=== PATIENT | male | born 1955 | race Caucasian/White ===

== ENCOUNTER 2020-02-26 12:08 | Emergency (ER) | payer OTHER, SELFPAY ==
[2020-02-26 12:14] VITALS: BP 127/78; PULSE 86; TEMP 36.7; O2SAT 95
--- NOTE | 2020-02-26 12:30 | DI.RAD_ITS ---
EXAM: XR TOE RT GREAT CLINICAL HISTORY: plantar wound, pain TECHNIQUE: COMPARISON: No exams were available for comparison FINDINGS: Three views were obtained. The patient reportedly has history of 2 weeks of pain following a plantar wound with clinical suspicion of osteomyelitis. There is a tiny erosion of the lateral aspect of th e head of the proximal phalanx of the great toe with a sclerotic border, probably old. There is mini mal sclerosis of the plantar cortex of the distal phalanx of the great toe without gross erosion or o ther evidence of osteomyelitis. Otherwise the bones of the visualized toes appear intact. IMPRESSION: No convincing evidence of osteomyelitis. If there is a high clinical suspicion of osteomyelitis lilly tional evaluation with MRI of this area may be considered.
--- NOTE | 2020-02-26 12:34 | ED.GENADUL_ITS ---
Discharge Plan Disposition Patient Disposition: HOME Condition: Stable Discharge Details Chief Complaint: Cellulitis Clinical Impression: Cellulitis of foot, right Primary Care Provider: None,None ED Provider: Elvin Boyd Home Meds and New Rx's Prescriptions: Continued sulfamethoxazole-trimethoprim [Bactrim] 400-80 mg Tablet 1 tab PO BID RF: 0 metformin 1,000 mg Tablet 1,000 mg PO BID RF: 0 buspirone 10 mg Tablet 20 mg PO TID RF: 0 duloxetine 60 mg Capsule,Delayed Release(Dr/Ec) 60 mg PO BID RF: 0 quetiapine 50 mg Tablet 50 mg PO QHS RF: 0 Lantus Solostar U-100 Insulin 100 unit/mL (3 mL) Insulin Pen 30 unit SUBCUT BID RF: 0 Discharge Instructions Instructions: Cellulitis (ED) Additional Instructions: I have placed you on our follow up list to see a direct response consultant if you have high fevers, severe pain or feel more ill return to the emergency department Medical Decision Making <Malvin Mo MD - Last Filed: 02/26/20 14:28> 64-year-old male diabetic who lives in the state of [place], has been staying with family in [place]. He reports stepping on a screw 12 to 14 days ago. He was seen by urgent care and put on Keflex. He says he had telemetry visitation with his PCP and was placed on 5 days of Levaquin. He is now been on Bactrim for 3 days. Vital signs are normal. There appears to be healing puncture wound on the plantar surface of the right great toe. Patient had screening laboratories obtained and is referred for x-ray. Patient's laboratories are reassuring, although he is hyperglycemic but no evidence of acidosis. His CRP is 0.29. Sed rate is 16. X-ray reveals minimal sclerosis of the plantar cortex of the distal phalanx of the great toe without gross erosion or other evidence of osteomyelitis. Otherwise the bones of the visualized toes appear intact. IMPRESSION: No convincing evidence of osteomyelitis. If there is a high clinical suspicion of osteomyelitis additional evaluation with MRI of this area may be considered. Given that the patient is a diabetic on his third round of antibiotics, we will proceed with MRI. <Elvin Boyd MD - Last Filed: 02/26/20 15:45> Pt's MRI shows no evidence of osteo or abscess per Dr. Alva. HE is already on oral antibiotics and will have him continue this and refer to podiatry for evaluation coty. Will d/c and return precautions given Imaging Data Radiologic Study: Attestation: I personally reviewed and interpreted this imaging study as follows: Imaging: MRI Radiologist's impression: no evidence of osteo or abscess per Dr. Alva Lab Data Lab results reviewed: Yes I reviewed the patient's lab results. HPI <Malvin Mo MD - Last Filed: 02/26/20 14:28> General Mode of arrival: ambulatory . Date/Time Provider Initiated Documentation: 02/26/20 12:13 . Limitations to Documentation: no limitations . Information obtained by: patient . History of Present Illness 64 year old M presents to the emergency department with the chief complaint of Right great toe plantar wound x2 weeks, described as moderate, Quality is described as dull, and is localized to the right and lower extremity. Patient reports no radiation. Patient started experiencing this day(s) and it has been constant. No relieving factors improve symptom(s), No exacerbating factors reported . Patient notes denies fever/chills. Patient did receive the following treatments prior to arrival, other (States he took 1 week of Keflex, 5 days of Levaquin, now on day 3 of Bactrim) Related Data Home Medications Medication Instructions Recorded Confirmed Lantus Solostar U-100 Insulin 30 unit SUBCUT BID 02/26/20 02/26/20 buspirone 20 mg PO TID 02/26/20 02/26/20 duloxetine 60 mg PO BID 02/26/20 02/26/20 metformin 1,000 mg PO BID 02/26/20 02/26/20 quetiapine 50 mg PO QHS 02/26/20 02/26/20 sulfamethoxazole-trimethoprim 1 tab PO BID 02/26/20 02/26/20 [Bactrim] Allergies Allergy/AdvReac Type Severity Reaction Status Date / Time pregabalin [From Lyrica] Allergy Mild Unverified 02/26/20 12:33 General Stated Complaint: Cellulitis ROBERTH: 3 Review of Systems <Malvin Mo MD - Last Filed: 02/26/20 14:28> Narrative: Lives in [place], staying locally with family. Patient has otherwise been well. PFSH <Malvin Mo MD - Last Filed: 02/26/20 14:28> Medical History (Updated 02/26/20 @ 15:44 by Elvin Boyd MD) Diabetes (Chronic) Social History Do you feel safe at home: Yes Do you feel safe in your relationship?: Yes Exam <Malvin Mo MD - Last Filed: 02/26/20 14:28> Narrative Exam Narrative: GEN: awake, alert, oriented 3. Pleasant, well groomed, interactive. HEAD: Normocephalic, atraumatic ENT: Mucous membranes moist, oropharynx unremarkable, External ear exam unre markable EYES: PERRL, EOMI NECK: Full ROM, no RAMEZ, no menigismus CHEST/RESP: Nontender, clear to auscultation bilateral, no wheeze/rhonchi/rales CARDIOVASCULAR: RRR, no murmur, rub sherry. 2+ Rad pulse bilateral EXT: Full ROM, no edema, the right great toe has a plantar puncture wound with surrounding area of mild swelling and tenderness, discrete surrounding erythema. No fluctuance. Full range of motion. Neuro: Grossly normal neurologic exam, conversant, interactive. Psych: Speech fluent, thoughts congruent, affect normal Course <Malvin Mo MD - Last Filed: 02/26/20 14:28> Vital Signs Vital signs: Vital Signs Temperature 36.7 C 02/26/20 12:14 Pulse 86 02/26/20 12:14 Blood Pressure 127/78 02/26/20 12:14 Pulse Oximetry 95 02/26/20 12:14 Temperature 36.7 C 02/26/20 12:14 Temperature Source Oral 02/26/20 12:14 Pulse 86 02/26/20 12:14 Respiratory Effort Non-Labored 02/26/20 12:27 Blood Pressure 127/78 02/26/20 12:14 Pulse Oximetry 95 02/26/20 12:14 Oxygen Delivery Method Room Air 02/26/20 12:14 Oxygen Flow Rate 0 02/26/20 12:14 Pain Level 5 02/26/20 12:14 Comment 02/26/20 12:14 Sign Out <Malvin Mo MD - Last Filed: 02/26/20 14:28> Sign Out Data: Sign Out Comment: Follow-up MRI Last updated by Malvin Mo MD at 02/26/20 15:03
[2020-02-26 13:09] LABS: Abs Immature Grans 0.03 k/cumm (0.0-0.09); Absolute Basophil Count 0.03 k/cumm (0.0-0.2); Absolute Lymphocyte Count 2.31 k/cumm (1.2-3.4); Absolute Monocyte Count 0.62 k/cumm (0.11-0.7); Absolute Neutrophil Count 3.67 k/cumm (1.2-6.7); Basophils % 0.4; Eosinophils % 1.5; HCT 44.4 % (40.0-50.0); HGB 15.4 g/dL (13.5-17.5); Immature Grans % 0.4 %; Lymphocytes % 34.2; Mean Corp. HGB Concentration 34.7 g/dL (32.0-36.0); Mean Corpuscular Hemoglobin 30.3 pg (27.0-33.0); Mean Corpuscular Volume 87.4 fL (80-95); Mean Platelet Volume 9.4 fL (8.0-11.0); Monocytes % 9.2; Neutrophils % 54.3; Platelet Count 235 x1000/uL (130-400); RBC 5.08 m/cumm (4.50-6.00); RBC Distribution Width 12.3 % (11.8-14.1); White Blood Cell Count 6.76 k/cumm (4.4-10.8)
[2020-02-26 13:18] LABS: C-Reactive Protein 0.29 mg/dL (0.0-0.3)
[2020-02-26 13:20] LABS: ALT 37 U/L (16-63); AST 20 U/L (15-37); Albumin 3.9 g/dL (3.4-5.0); Alkaline Phosphatase 144 U/L (46-116); Anion Gap 8.2 mmol/L (3-11); BUN 15 mg/dL (7-18); Bilirubin, Total 0.4 mg/dL (0.2-1.0); CO2 25.8 mmol/L (21.0-32.0); CREATININE 1.25 mg/dL (0.70-1.30); Calcium 9.3 mg/dL (8.5-10.1); Chloride 99 mmol/L (98-107); Estimated GFR 58.34 (mL/min/1.73m2); Glucose 393 mg/dL (74-106); Potassium 4.7 mmol/L (3.5-5.1); Sodium 133 mmol/L (136-145); Total Protein 7.8 g/dL (6.4-8.2)
--- NOTE | 2020-02-26 13:53 | DI.MRI_ITS ---
EXAM: MR LOWER EXTREMITY RT WO/W CLINICAL HISTORY: R great toe puncture, ? osteomyelitis on XR. TECHNIQUE: Multiplanar multisequence MRI was performed. COMPARISON: No exams were available for comparison FINDINGS: MR examination of the toes was performed according to the usual protocol including pre and post contr ast T1 fat sat imaging. Patient reportedly has a clinical suspicion of and osteomyelitis of the grea t toe. There is mildly increased soft tissue signal on T2 fat sat imaging involving the plantar and medial a spect of the great toe. There is no abscess identified. Bony signal appears within normal limits. No evidence of enhancement in the bones of the great toe. No gross ligamentous or tendinous abnormal ity identified. IMPRESSION: Mild soft tissue edema noted involving the great toe consistent with soft tissue infection. No evide nce of osteomyelitis. DATA REPOSITORY:
[2020-02-26 14:02] LABS: ESR 16 mm/hr (1-20)
[2020-02-26] MEDS: Normal Saline Flush 10 ML SYR IVP (14:59)
[2020-02-26] MEDS: Gadoterate meglumine 20 ML VIAL 19 ML IVP (15:00)
[2020-02-26 15:41] VITALS: BP 126/88; PULSE 71; RESP 18; TEMP 36.6; O2SAT 97
[2020-02-26 16:02] VITALS: BP 126/88; PULSE 71; RESP 18; TEMP 36.6; O2SAT 97
--- NOTE | 2020-02-26 18:32 | NUR.NOTE ---
Referral to see DR. Rowe as soon as possible copied and placed in care management mail box @[phone] 02/26/2020 Libl. Nursing Note:
--- NOTE | 2020-02-27 10:25 | PDOC.ERCMPRO ---
- If Service Date Differs Date of service: 02/27/20 Time of Service: 10:25 Care Management Progress Note CM coordinates referral to Dr. Borrero, at the request of ED provider.
== END 2020-02-26 16:04 | disposition home or self-care (01) ==
PROVIDERS: Emergency Medicine; Emergency Provider Emergency Medicine
DX: L03.031 Cellulitis of right toe (principal); E11.65 Type 2 diabetes mellitus with hyperglycemia; Z79.4 Long term (current) use of insulin
CPT/HCPCS: 80053; 85652; 99283; 73660; 73720; 85025; 86140

== ENCOUNTER 2022-05-26 20:53 | Outpatient (REF) | payer MEDICARE, OTHER, SELFPAY | END 2022-05-26 20:54 | disposition home or self-care (01) | LOC: PRC 20:53 | PROVIDERS: Visit Provider Physician Assistant Medical ==

== ENCOUNTER 2022-05-26 21:23 | Outpatient (REF) | payer MEDICARE, OTHER, SELFPAY | END 2022-05-26 21:24 | disposition home or self-care (01) | LOC: LBN 21:23 | PROVIDERS: Visit Provider Physician Assistant Medical | DX: L97.511 Non-pressure chronic ulcer of other part of right foot limited to breakdown of skin; L98.8 Other specified disorders of the skin and subcutaneous tissue | CPT/HCPCS: 87070; 87205 ==

== ENCOUNTER 2022-05-27 14:11 | Emergency (ER) | payer MEDICARE, OTHER, SELFPAY ==
[2022-05-27 14:37] VITALS: BP 87/69; PULSE 83; RESP 16; TEMP 36.5; O2SAT 98
[2022-05-27 15:31] VITALS: BP 83/56
--- NOTE | 2022-05-27 15:56 | ED.GENADUL_ITS ---
Discharge Plan Disposition Patient Disposition: HOME Condition: Stable Discharge Details Chief Complaint: Cellulitis Clinical Impression: Open toe wound Primary Care Provider: None,None ED Provider: Rad Franz Home Meds and New Rx's Prescriptions: No Action atorvastatin 40 mg tablet 40 mg PO DAILY pantoprazole 40 mg tablet,delayed release (DR/EC) 40 mg PO DAILY doxycycline hyclate 100 mg tablet 100 mg PO BID Qty: 20 0RF metformin 1,000 mg Tablet 1,000 mg PO BID quetiapine 50 mg Tablet 50 mg PO QHS Lantus Solostar U-100 Insulin 100 unit/mL (3 mL) Insulin Pen 30 unit SUBCUT BID Discharge Instructions Instructions: Chronic Wounds (ED) Additional Instructions: Please return tomorrow for MRI please arrive at 9:30AM as your appointment for MRI is at 10AM. We will follow-up in the emergency department for your results. Please continue to take your antibiotics. Please return sooner if you develop worsening pain swelling pus drainage fevers chills redness or other abnormal symptoms. Medical Decision Making 66-year-old male presents with chronic wound to right great toe, history of diabetes, prior injury from a nail at work site, being divided watched closely by meal grinder tender in [place], his primary doctor has ordered an MRI however his order has not been processed yet by [facility]. Spoke with MRI team who will be able to expedite MRI tomorrow morning at 10 AM if patient returns infection to the ED. Patient is currently on doxycycline. Area of exposed pink/approximately 3 cm in diameter to dorsal aspect of great toe, no fluctuance no purulence no bleeding, no lymphangitic streaking, range of motion is intact, nailbed is uninvolved, chronic appearing callus to plantar aspect of this toe. Likely chronic wound no evidence of active infection at this time however given history of diabetes and poorly healing wound will benefit from MRI to assess depth to see if there is any muscular or bony involvement. Low blood pressure likely related to marijuana smoking just before arrival, patient Dors that this lowers his blood pressure, notes that he is not tachycardic or febrile he is nontoxic. HPI General Date/Time Provider Initiated Documentation: 05/27/22 15:09 . HPI Narrative: 56-year-old male history of diabetes, chronic wound to right great toe, prior injury from a worksite nail injury, follows with a meal grinder tender in [place] who is applied to this wound at times over the past several years, most recently debrided within the last couple of weeks, started on doxycycline within the last week, he is physician out of town and has ordered an MRI called ahead [facility] however has not been scheduled yet. Patient denies fevers chills sweats spreading redness or pain. When questioned about his low blood pressure on triage he says that he just smoked marijuana before arrival and it tends to lower his blood pressure. Related Data Home Medications Medication Instructions Recorded Confirmed insulin glargine 100 unit/mL (3 30 unit subcut BID 02/26/20 05/26/22 mL) subcutaneous pen (Lantus Solostar U-100 Insulin) metformin 1,000 mg tablet 1,000 mg PO BID 02/26/20 05/26/22 quetiapine 50 mg tablet 50 mg PO QHS 02/26/20 05/26/22 atorvastatin 40 mg tablet 40 mg PO DAILY 05/26/22 05/26/22 doxycycline hyclate 100 mg tablet 100 mg PO BID #20 tabs 05/26/22 05/26/22 pantoprazole 40 mg tablet,delayed 40 mg PO DAILY 05/26/22 05/26/22 release Previous Rx's Medication Instructions Recorded doxycycline hyclate 100 mg tablet 100 mg PO BID #20 tabs 05/26/22 Allergies Allergy/AdvReac Type Severity Reaction Status Date / Time pregabalin [From Lyrica] Allergy Mild Unverified 05/26/22 15:16 General Stated Complaint: Cellulitis ROBERTH: 3 Review of Systems Narrative: Review of Systems Constitutional: negative Eyes: negative ENT: negative Cardiovascular: negative Respiratory: negative Gastrointestinal: negative : negative Musculoskeletal: negative Skin: Chronic wound to right great toe Neurologic: negative Psych: negative PFSH All Active Problems (Updated 05/27/22 @ 16:01 by Rad Franz MD) Open toe wound (Acute) Medical History Diabetes Social History Smoking/Tobacco Use Status: Current every day Tobacco Type: cigarettes Smoking risk assessment performed?: Yes Alcohol Intake: current Alcohol Intake frequency: a few times a week Substance use type: does not use Do you feel safe at home: Yes Do you feel safe in your relationship?: Yes Exam Narrative Exam Narrative: Physical Examination General: alert, awake, cooperative, resting comfortably, no acute distress HEENT: normocephalic, atraumatic; PERRL, EOM intact, conjunctiva normal; no nasal discharge; moist mucous membranes, oral and pharyngeal mucosa normal, tolerating secretions Neck: supple, trachea midline; full ROM Chest: normal to inspection Respiratory: normal respiratory effort, speaking in full sentences, clear to auscultation, no wheezing, rales or rhonchi Cardiac: regular rate, regular rhythm, S1S2 intact, no murmurs rubs or gallops GI: abdomen soft, non-tender, non-distended; no palpable mass or hepatosplenomegaly Skin: See extremities Neuro: AAOx3, normal speech, moving all extremities Extremities: Chronic appearing callus to plantar aspect of great toe, on dorsal aspect of great toe patient has denuded skin with exposed pink dermis approximate diameter 3 cm, some granulation tissue no purulence or bleeding, no fluctuance, no lymphangitic streaking, range of motion intact chronic decreased sensation in this area, no crepitus or bulla nailbed is not involved Psych: Appropriate mood and affect Right foot: Course Vital Signs Vital signs: Vital Signs Temperature 36.5 C 05/27/22 14:37 Pulse 83 05/27/22 14:37 Respiratory Rate 16 05/27/22 14:37 Blood Pressure 87/69 L 05/27/22 14:37 Pulse Oximetry 98 05/27/22 14:37 Temperature 36.5 C 05/27/22 14:37 Temperature Source Skin 05/27/22 14:37 Pulse 83 05/27/22 14:37 Respiratory Rate 16 05/27/22 14:37 Respiratory Effort 05/27/22 14:41 Blood Pressure 83/56 L 05/27/22 15:31 Blood Pressure Position Sitting 05/27/22 14:37 Pulse Oximetry 98 05/27/22 14:37 Oxygen Delivery Method Room Air 05/27/22 14:37 Oxygen Flow Rate 0 05/27/22 14:37 Pain Level 3 05/27/22 14:37 PAWSS Have you Been Recently Intoxicated or Drunk Within the Last 30 days?: No Have you Ever Experienced Previous Episodes of Alcohol Withdrawal?: No Have you ever Experienced Withdrawal Seizures?: No Have you ever Experienced Delirium Tremens(DT)s?: No Have you ever undergone Alcohol Rehabilitation Treatment (i.e, inpt ot outpatient treatment programs)?: No Have you ever Experienced Blackouts?: No Have you ever Combined Alcohol with other Downers within the last 90 days?: No Have you ever Combined Alcohol with any other Substance of Abuse during the last 90 days?: No Positive Blood Alcohol level on Presentation? [PCS.BAL]: No Evidence of Increased Autonomic Activity (i.e. HR>120, tremor, sweating, agitation, nausea)?: No Result: 0
== END 2022-05-27 16:10 | disposition home or self-care (01) ==
PROVIDERS: Emergency Provider Emergency Medicine
DX: S91.101A Unspecified open wound of right great toe without damage to nail, initial encounter (principal); W45.0XXA Nail entering through skin, initial encounter; E11.9 Type 2 diabetes mellitus without complications
CPT/HCPCS: 99281; 99283

== ENCOUNTER 2022-05-28 09:43 | Emergency (ER) | payer MEDICARE, OTHER, SELFPAY ==
--- NOTE | 2022-05-28 09:45 | DI.MRI_ITS ---
Exam(s) MR LOWER EXTREMITY RT WO/W EXAM: MR LOWER EXTREMITY RT WO/W CLINICAL HISTORY: foot/great toe infection, DM TECHNIQUE: Multiplanar multisequence MRI was performed both pre and post contrast infused sequences. Contrast use was 15 mL Dotarem COMPARISON: MR MR LOWER EXTREMITY RT WO/W from 02/26/2020 FINDINGS: SOFT TISSUES: Increased tissue edema seen in the distal soft tissues of the great toe. No foreign dmitri dy evident. Generalized edema on the undersurface of the foot. No formed abscess evident. No tears of the flexor and extensor tendons and no evidence of tenosynovitis. MARROW: There is very mild increased signal within the distal phalanx of the great toe seen on STIR s equences. There is no confluent low signal in the bone evident on non fat sat T1 weighted sequences. No cortical disruption. No erosions. Following contrast injection there is very mild increased signal throughout the distal phalanx. No evidence of significant joint effusion in the interphalangeal joint of the great toe. Bipartite hallucal sesamoid. No abnormal signal in the sesamoids. IMPRESSION: 1. Mild diffuse signal abnormality and enhancement in the distal phalanx of the great toe but no conf luent hypointense signal on non fat sat T1 weighted sequences (which would be more specific for osteo myelitis). 2. Recommend repeat MRI in a few days time 3. Soft tissue findings around the distal phalanx the great toe but no abscess. No tenosynovitis. No collateral ligament tears. DATA REPOSITORY:
[2022-05-28 09:46] VITALS: BP 102/63; PULSE 79; RESP 18; TEMP 36.6; O2SAT 96
--- OUTSIDE RECORDS SUMMARY | 2022-05-28 09:55 | XMS_ITS | Continuity of Care Document ---
:1955 External Reference #:[id number] Author Care Team Providers Name Role Phone Arti Rothman PA-C Care Team Information Commercial Loan Officer Unavail able MARIELA RENTERIA M.D. Care Team Information Commercial Loan Officer Unavaila ble Arti Rothman PA-C Primary Care Physician Unavailable Social History Type Date Description Comments Occupation Construction ETOH Use Negative For Never used alcohol Tobacco Use Start: Unknown Patient is a current smoker, smo kes every day Recreational Drug Use Current Illegal Allergies and adverse reactions Description No Known Drug Allergies Medications Active Medications SIG Qnty Indications Ordering Provide r Date Metformin HCL 500mg 1 tablet by Unknown 00 Tablets mouth every day Lisinopril 5mg 1 tablet by Unknown 0000/0 000 Tablets mouth every day Lantus 50Units 25 units in the Unknown 00/ am and 25 units in the pm Functional Status Functional Condition Comment Date Status Negative for None Inactive
--- OUTSIDE RECORDS SUMMARY | 2022-05-28 09:57 | XMS_ITS | Encounter Summary ---
:1955 [facility] Address [address] [place] [address] Care Team Providers Name Role Phone Avelino Jones DO Primary Care Provider Encounter Details Date Type Department Care Team Description 05/12/2022 Orders Only [facility] Internal Medicine - Provider, [facility] [address] None [place] [id number] Social History Tobacco Use Types Packs/Day Years Used Date Current Every Day Smoker 1 Sta rted: 1970 Smokeless Tobacco: Never Used Comments: Half pack every 2 days, patidavid t has smoked a pack a day or more off and on for the past 50 years. Alcohol Use Standard Drinks/Week Comments Yes 0 (1 standard drink = 0.6 oz pure alcoho l) 2 beers a week Alcohol Habits Answer Date Recorded How often do you have a drink containing alcohol? Not asked How many drinks containing alcohol do you have on a Not aske d typical day when you are drinking? How often do you have six or more drinks on one Not asked occasion? Comment: 2 beers a week 11/05/2021 Food Insecurity Answer Date Recorded Within the past 12 months, you worried that your food would Never true 02/09/2022 run out before you got money to buy more. Within the past 12 months, the food you bought just didn't N ever true 02/09/2022 last and you didn't have money to get more. Transportation Needs Answer Date Recorded In the past 12 months, has lack of transportation kept you f rom No 02/09/2022 medical appointments or from getting medications? In the past 12 months, has lack of transportation kept you f rom No 02/09/2022 meetings, work, or getting things needed for daily living? Housing Stability Answer Date Recorded In the last 12 months, was there a time when you were not No 02/09/2022 able to pay the mortgage or rent on time? In the last 12 months, how many places have you lived? Not a sked In the last 12 months, was there a time when you did not hav e No 02/09/[address] sleep or slept in a [facility] (including now)? Sex Assigned at Date Recorded Not on file documented as of this encounter Plan of Treatment Not on filedocumented as of this encounter Procedures Procedure Name Priority Date/Time Associated Diagnosis Comme nts DIABETES EYE EXAM Routine 05/08/2022 documented in this encounter Results Diabetes Eye Exam (05/08/2022) Narrative This result has an attachment that is no t available. Historical Provider HEALTH MAINTENANCE documented in this encounter Visit Diagnoses Not on filedocumented in this encounter Care Teams Blender / Cook Relationship Specialty Start Date End Date Avelino Jones DO PCP - General Internal Medicine 11/05/21 [id number] [facility] [place] [phone] documented as of this encounter
--- OUTSIDE RECORDS SUMMARY | 2022-05-28 09:57 | XMS_ITS | Continuity of Care Document ---
:1955 External Reference #:[id number] Author Care Team Providers Name Role Phone HENRY LOPEZ D.P.M. Care Team Information Foundry Worker General U Avelino Garcia D.O. Primary Care Physician Unavailable Problems Active Problems Provider Date Tibialis tendinitis Henry Lopez D.P.M. Onset: 05/2022 Long-term current use of oral Henry Lopez D.P.M. O nset: 01/26/2022 hypoglycemic medication Ulcer of foot Henry Lopez D.P.M. Onset: 01/26 Diabetic peripheral neuropathy Onset: 1 01/06/2021 Type 2 diabetes mellitus Onset: 021 Allergies and adverse reactions Active Allergies Criticality Reaction Severity Comments Date Pregabalin Unable to assess 01/26/2022 criticality Medications Active Medications SIG Qnty Indications Ordering Provide r Date Basaglar Kwikpen inject 40-60 Unknown 100Unit/ML Solution units daily at Pen-Inject every night at bedtime Metformin HCL 500mg take 1 tablet Unknown Tablets (500 mg total) by mouth 2 (two) times a day with meals Jardiance 10mg take 1 tablet Unknown Tablets (10 mg total) by mouth daily Lisinopril 5mg 1 by mouth Unknown 00 Tablets every day Vitamin D take 1 tablet Unknown (Cholecalciferol) one time daily 50mcg (1999 Ut) Capsules Seroquel 50mg Unknown Tablets Atorvastatin Calcium take 1 tablet Unknown 20mg Tablets (20 mg total) by mouth daily Pantoprazole Sodium take 1 tablet Unknown 40mg Tablets DR (40 mg total) by mouth daily History Medications Cephalexin 500mg 1 by mouth 30caps L97.511 Henry Cross 2021 - Capsules three times a Cecelia Lopez.P.MJosafat 12/2021 day
--- OUTSIDE RECORDS SUMMARY | 2022-05-28 09:57 | XMS_ITS | Clinical Summary ---
:1955 Author Organization [employer] [facility] Address [address] [place] [address] Care Team Providers Name Role Phone Avelino Jones DO Primary Care Provider Allergies Active Allergy Reactions Severity Noted Date Comments Pregabalin Swelling Medium 05/30/2021 Medications Medication Sig Dispensed Refills Start End Status Date Date ergocalciferol, vitamin Take 1,000 0 Active D2, (VITAMIN D2 ORAL) mcg by mouth daily multivitamin 400 mcg Take 1 0 Active tablet tablet by mouth daily FREESTYLE LITE STRIPS Test three 100 strip 3 Active strip times a 2 day. Dx e11.65 pantoprazole (PROTONIX) Take 1 90 tablet [address] tablet (40 2 023 tabletIndications: mg total) Gastroesophageal reflux by mouth disease without daily esophagitis atorvastatin (LIPITOR) Take 1 90 tablet 3 Active 40 mg tabletIndications: tablet (40 2 Pure mg total) hypercholesterolemia by mouth daily empagliflozin Take 1 90 tablet 3 Active (JARDIANCE) 25 mg tablet tablet (25 2 023 tablet mg total) by mouth daily insulin Inject 30 15 pen 3 Active glargine,hum.rec.anlog Units under 2 023 (BASAGLAR KWIKPEN U-100 the skin 2 INSULIN) 100 unit/mL (3 (two) times mL) insulin a day Give penIndications: Diabetic 90 day peripheral neuropathy supply (CMS/HCC) lisinopriL (ZESTRIL) 5 Take 1 90 tablet 3 Active mg tablet tablet (5 2 mg total) by mouth daily metFORMIN (GLUCOPHAGE) Take 1 180 tablet 3 Active 1,000 mg tablet 2 tabletIndications: (1,000 mg Diabetic peripheral total) by neuropathy (CMS/HCC) mouth 2 (two) times a day QUEtiapine (SEROquel) Take 1 90 tablet 3 Active 100 mg tablet tablet (100 2 mg total) by mouth every evening dicyclomine (BENTYL) 10 Take 1 60 capsule 3 07/04 Active mg capsule capsule (10 2 022 mg total) by mouth 2 (two) times a day before meals pen needle, diabetic 31 Use to 100 each 11 Active gauge x 04/06 needle inject 2 2 023 times daily as directed. pantoprazole (PROTONIX) Take 1 90 tablet [address] tablet tablet (40 2 022 (Du plicate mg total) order) by mouth daily atorvastatin (LIPITOR) Take 1 7 tablet 0 Discontinued 40 mg tabletIndications: tablet (40 2 022 (Duplicate Pure mg total) order) hypercholesterolemia by mouth daily Active Problems Patient Care Coordination Note Formatting of this note might be differe nt from the original. 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 11/05/2021 Diabetic ulcer of toe of right foot associated with ty pe 2 diabetes 11/05/2021 mellitus, limited to breakdown of skin Benign prostatic hyperplasia with nocturia 11/05/2021 Pure hypercholesterolemia 11/05/2021 Cigarette nicotine dependence without complication Gastroesophageal reflux disease without esophagitis Pulmonary nodules 11/05/2021 Type 2 diabetes mellitus with hyperglycemia, without l david-term current use 10/30/2021 of insulin Encounters Date Type Specialty Care Team Description 05/26/2022 Telephone Internal Medicine Karen Referral ( Counter Attendant) Avelino Delaney DO 05/14/2022 Telephone Internal Medicine paula Jones do cumentation Avelino Delaney DO 05/12/2022 Orders Only Internal Medicine Provider, MD Aldo 05/11/2022 Hospital Encounter Radiology 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 05/11/2022 Telephone Internal Medicine [place], Med Refkentrell Delaney DO 05/05/2022 Office Visit Internal Medicine Karen, Acute supe rficial gastritis without hemorrhage (Primary Dx); Avelino Delaney, DO Irritable bowel syndrome without diarrhea; Gastroesophagea l reflux disease without esophagitis; BMI 26.0-26.9,a dult 05/04/2022 Telephone Internal Medicine Karen, Medication Inquiry (IBS) Avelino Delaney, 04/24/2022 Telephone Internal Medicine Rajni Ireland LPN 04/24/2022 Telephone Internal Medicine Rajni Ireland LPN 04/23/2022 Hospital Encounter Radiology Right upp er lobe pulmonary nodul e 04/23/2022 Hospital Encounter Radiology Lipoma of torso 03/30/2022 Telephone Internal Medicine Karen, Med Questi on Avelino Delaney, 03/12/2022 Telephone Internal Medicine Karen, med refill Avelino Delaney, 03/10/2022 Telephone Internal Medicine Karen, Med Refill (Pt Avelino Delaney, DO requesting shor t supply of atorvastatin and pantoprazole) 03/09/2022 Refill Internal Medicine Karen, Diabetic p eripheral Avelino Delaney, neuropathy (CMS /HCC) from Last 3 Months Family History Medical History Relation Comments Diabetes Brother Cancer Father Penile Cancer Cancer Mother No Known Problems Sister 1 Schizophrenia Sister 2 Relation Status Comments Brother Alive Father Mother Sister 1 Alive Sister 2 Alive Social History Tobacco Use Types Packs/Day Years Used Date Current Every Day Smoker 1 Sta rted: 1970 Smokeless Tobacco: Never Used Comments: Half pack every 2 days, patien t has smoked a pack a day [...] place to sleep or slept in a skilled nursing (including now)? Sex Assigned at Date Recorded Not on file Last Filed Vital Signs Vital Sign Reading Time Taken Comments Blood Pressure 122/78 05/05/2022 9:07 AM EDT Pulse 73 05/05/2022 9:07 AM EDT Temperature 35.7 ??C (96.2 ??F) 11/05/2021 9:18 AM EST Respiratory Rate 18 05/05/2022 9:07 AM EDT Oxygen Saturation 97% 05/05/2022 9:07 AM EDT Inhaled Oxygen Concentration - - Weight 88.9 kg (196 lb) 05/05/2022 9:07 AM EDT Height 182.9 cm (6') 05/05/2022 9:07 AM EDT Body Mass Index 26.58 05/05/2022 9:07 AM EDT Plan of Treatment Health Maintenance Due Date Last Done Comments Annual Wellness 1955 Visit(AWV/IPPE) Colon Cancer Screening : 1955 Last Met By Annual FIT Colon Cancer Screening : 1955 Last Met By Annual FOBT Colon Cancer Screening : [address] Colonography Colon Cancer Screening : 1955 Last Met By Colonoscopy Colon Cancer Screening : 1955 Last Met By FIT-DNA Colon Cancer Screening : 1955 Last Met By Sigmoidoscopy Colon Cancer Screening: Last 1955 met by Annual Fit Colon Cancer Screening 1955 Tobacco Cessation Counseling 1955 SARS-CoV-2 (COVID-19) (#1) 04/20/1957 Pneumococcal 65+ years (1 - 1962 PCV) DTaP,Tdap,and Td Vaccines (1 1975 - Tdap) Zoster Vaccine (1 of 2) 2006 Hemoglobin A1C 05/09/2022 02/06/2022, 06/27/2014 Influenza Vaccine (#1) 2022 Lipid Panel 02/06/2023 02/06/2022, 06/27/2014, 06/27/2014, Additional history exists Urine albumin/creatinine 02/06/2023 02/06/2022, 06/27/2014, ratio 12/21/2013 Depression Screening 12 02/09/2023 02/09/2022 years and older Fall Risk Screening 02/09/2023 02/09/2022 Height check 05/05/2023 05/05/2022 Tobacco Screening Review 05/05/2023 05/05/2022 Weight check 05/05/2023 05/05/2022 Diabetic Eye Exam 05/08/2023 05/08/2022 Hepatitis C Screening Completed 02/06/2022 Abdominal Aortic Aneurysm Completed 04/23/2022 (AAA) Screen HPV Vaccines Aged Out No longer eligib le based on patient 's age to complete this topic Hepatitis A Vaccines Aged Out No longer e ligible based on patient 's age to complete this topic Hepatitis B Vaccines Aged Out No longer e ligible based on patient 's age to complete this topic Meningococcal ACWY Vaccine Aged Out No lo nger eligible based on patient 's age to complete this topic Procedures Procedure Name Priority Date/Time Associated Diagnosis Comme nts US CAROTID Routine 05/11/2022 10:03 AM Ocular ischemic Resul ts for this BILATERAL EDT syndrome procedure are i n the results section. HM DIABETES EYE Routine 05/08/[address] CHEST WO Routine 04/23/2022 7:58 AM Right upper lobe Resul ts for this CONTRAST EDT pulmonary nodule procedure a re in the results section. US ABDOMEN LIMITED Routine 04/23/2022 7:40 AM Lipoma of torso Results for this EDT procedure are i n the results section. from Last 3 Months Results Ultrasound carotid bilateral (05/11/2022 10:03 AM EDT) Anatomical Region Laterality Modality Neck Bilateral Ultrasound Specimen (Source) Anatomical Location Collection Method / Collectio n Time Received Time / Laterality Volume Narrative 05/12/2022 8:39 PM EDT IMPRESSION: 1. Mild plaque burden without hemodynami hetal significant stenosis (less than 50%) of the RIGHT ca rotid artery by NASCET ([place] Symptomatic Carot id Endarterectomy Trial). 2. Mild plaque burden without hemodynami hetal significant stenosis (less than 50%) of the LEFT car otid artery by NASCET ([place] Symptomatic Carot id Endarterectomy Trial). PROCEDURE INFORMATION: Exam: US Duplex Bilateral Extracranial A rteries, Carotid Arteries Exam date and time: 05/11/2022 9:13 AM Age: 66 years old Clinical indication: Visual disturbance; Additional info: Retinal ischemia TECHNIQUE: Imaging protocol: Real-time Duplex ultra sound scan of the bilateral carotid and vertebral arteries combining peralta scale, color Doppler and spectral wavefo rm analysis. Bilateral exam. Exam focused on the valentin tid arteries. COMPARISON: No relevant prior studies available. FINDINGS: Right common carotid artery: Peak veloci ty: 90 cm/sec. No significant plaque or narrowing. Right internal carotid artery: Peak velo city: 87 cm/sec. Mild calcific atherosclerotic plaque wit hout significant narrowing. Right ICA/CCA ratio: 1.0 Right external carotid artery: NA Right vertebral artery: Normal antegrade flow. Left common carotid artery: Peak velocit y: 102 cm/sec. No significant plaque or narrowing. Left internal carotid artery: Peak veloc ity: 103 cm/sec. Mild/minimal atherosclerotic plaque with out significant narrowing. Left ICA/CCA ratio: 1.0 Left external carotid artery: NA Left vertebral artery: Normal antegrade flow. REFERENCES: SRU CRITERIA. The degree of internal car otid artery stenosis is based on criteria defined by the Society of Radiologists in Ultrasound (SRU). Normal is no stenosis. Mild is less than 50% stenosis. Moderate is 50-69% stenosis. Severe is greater than 69% teresita nosis to near occlusion. Near occlusion is a markedly narrowed lumen. Total occlusion is no detectable patent lumen. THIS DOCUMENT HAS BEEN ELECTRONICALLY SI GNED BY BARRINGTON MCDOWELL MD Procedure Note Barrington Mcdowell MD - 05/12/2022 IMPRESSION: 1. Mild plaque burden without hemodynami hetal significant stenosis (less than 50%) of the RIGHT ca rotid artery by NASCET ([place] Symptomatic Carot id Endarterectomy Trial). 2. Mild plaque burden without hemodynami hetal significant stenosis (less than 50%) of the LEFT car otid artery by NASCET ([place] Symptomatic Carot id Endarterectomy Trial). PROCEDURE INFORMATION: Exam: US Duplex Bilateral Extracranial A rteries, Carotid Arteries Exam date and time: 05/11/2022 9:13 AM Age: 66 years old Clinical indication: Visual disturbance; Additional info: Retinal ischemia TECHNIQUE: Imaging protocol: Real-time Duplex ultra sound scan of the bilateral carotid and vertebral arteries combining peralta scale, color Doppler and spectral wavefo rm analysis. Bilateral exam. Exam focused on the valentin tid arteries. COMPARISON: No relevant prior studies available. FINDINGS: Right common carotid artery: Peak veloci ty: 90 cm/sec. No significant plaque or narrowing. Right internal carotid artery: Peak velo city: 87 cm/sec. Mild calcific atherosclerotic plaque wit hout significant narrowing. Right ICA/CCA ratio: 1.0 Right external carotid artery: NA Right vertebral artery: Normal antegrade flow. Left common carotid artery: Peak velocit y: 102 cm/sec. No significant plaque or narrowing. Left internal carotid artery: Peak veloc ity: 103 cm/sec. Mild/minimal atherosclerotic plaque with out significant narrowing. Left ICA/CCA ratio: 1.0 Left external carotid artery: NA Left vertebral artery: Normal antegrade flow. REFERENCES: SRU CRITERIA. The degree of internal car otid artery stenosis is based on criteria defined by the Society of Radiologists in Ultrasound (SRU). Normal is no stenosis. Mild is less than 50% stenosis. Moderate is 50-69% stenosis. Severe is greater than 69% teresita nosis to near occlusion. Near occlusion is a markedly narrowed lumen. Total occlusion is no detectable patent lumen. THIS DOCUMENT HAS BEEN ELECTRONICALLY SI GNED BY BARRINGTON MCDOWELL MD Francisco Mahajan MD IMG US PROCEDURES Hm Diabetes Eye Exam (05/08/2022) Narrative This result has an attachment that is no t available. Historical Provider HEALTH MAINTENANCE CT chest without contrast (04/23/2022 7:58 AM EDT) Anatomical Region Laterality Modality Lung, Chest, Body, Reading Worklist Body N/A Computed Tomography Specimen (Source) Anatomical Location Collection Method / Collectio n Time Received Time / Laterality Volume Narrative 04/23/2022 3:[address] CHEST WO CONTRAST IMPRESSION: There are no lung nodules. END OF IMPRESSION: INDICATION: Lung nodule. TECHNIQUE: Helical CT scan of the chest without contrast was performed from the lung apices to below the diaphragm with 3 mm axial reconstruction. MPR coronal and sagittal images were created. CONTRAST: No contrast was administered. COMPARISON: None available. FINDINGS: There are no lung nodules. There is subs egmental atelectasis at the lung bases. There is no pleural fluid. There are no enlarged hilar or mediastinal lymph nodes. There are nonobstructing calculi in the upper pole of the left kidney. This report was created using Moni software. Thank you for allowing us to participate in the care of your patient. Procedure Note Yossi Betts MD - 04/23/2022Format ting of this note might be different from the original. CT CHEST WO CONTRAST IMPRESSION: There are no lung nodules. END OF IMPRESSION: INDICATION: Lung nodule. TECHNIQUE: Helical CT scan of the chest without contrast was performed from the lung apices to below the diaphragm with 3 mm axial reconstruction. MPR coronal and sagittal images were created. CONTRAST: No contrast was administered. COMPARISON: None available. FINDINGS: There are no lung nodules. There is subs egmental atelectasis at the lung bases. There is no pleural fluid. There are no enlarged hilar or mediastinal lymph nodes. There are nonobstructing calculi in the upper pole of the left kidney. This report was created using Moni software. Thank you for allowing us to participate in the care of your patient. Avelino QUINONEZ CT PROCEDURES Ultrasound abdomen limited (04/23/2022 7:40 AM EDT) Anatomical Region Laterality Modality Abdomen N/A Ultrasound Specimen (Source) Anatomical Location Collection Method / Collectio n Time Received Time / Laterality Volume Narrative 04/23/2022 11:59 AM EDT US ABDOMEN LIMITED IMPRESSION: No sonographic findings in the area of c linical concern is identified by the patient. END OF IMPRESSION: INDICATION: 66-year-old male patient wit h palpable area in periumbilical abdominal wall. TECHNIQUE: Multiple longitudinal and tra nsverse 2D real-time ultrasound images through the abdomen were acquired. Permanently recorded images were obtained and stored. COMPARISON: None available. FINDINGS: Sonographic assessment directed to the a nyasia of clinical concern in the periumbilical area was performed. This was predominantly above and to the left of the umbilicus. Sonographically no mass is evident . No altered echo changes noted. No dereje opathy or cysts were seen. No abnormal vascularity was noted. No underlying hernia was identified. This report was created using Moni software. Thank you for allowing us to participate in the care of your patient. Procedure Note Alan Rivas MD - 04/23/2022Format ting of this note might be different from the original. US ABDOMEN LIMITED IMPRESSION: No sonographic findings in the area of c linical concern is identified by the patient. END OF IMPRESSION: INDICATION: 66-year-old male patient wit h palpable area in periumbilical abdominal wall. TECHNIQUE: Multiple longitudinal and tra nsverse 2D real-time ultrasound images through the abdomen were acquired. Permanently recorded images were obtained and stored. COMPARISON: None available. FINDINGS: Sonographic assessment directed to the a nyasia of clinical concern in the periumbilical area was performed. This was predominantly above and to the left of the umbilicus. Sonographically no mass is evident. No altered echo changes noted. No adenopathy or cysts we re seen. No abnormal vascularity was noted. No underlying hernia was identified. This report was created using Moni software. Thank you for allowing us to participate in the care of your patient. Avelino Jones DO IMG US PROCEDURES from Last 3 Months Yossi Garcia Personal/Family Self 1955 [facility] [place] [address] Yossi Garcia Personal/Family Self 1955 [address] [address] Yossi Garcia Personal/Family Self 1955 [address] [place] [address] [address] Yossi Garcia Personal/Family Self 1955 [address] [address] [address] Yossi Garcia Personal/Family Self 1955 [address] [address] [address] Yossi Garcia Behavior[facility] Self 1955 [phone] (Home) [place] [id number] Care Teams Supervisor/Port Director Relationship Specialty Start Date End Date Avelino Jones, PCP - General Internal Medicine 11/05/[address] [place] [address] [place] [phone]
--- OUTSIDE RECORDS SUMMARY | 2022-05-28 09:57 | XMS_ITS | Encounter Summary ---
:1955 Author Organization [facility] Address [address] [facility] [place] [address] Care Team Providers Name Role Phone Avelino Jones DO Primary Care Provider Reason for Referral Consultation (Routine) - Authorized Specialty Diagnoses / Procedures Referred By Contact Refer red To Contact Podiatry Diagnoses Foot swelling Avelino Jones DO Unknown Provider POS [address] [facility] [place] [address] Referral ID Status Reason Start Expiration Visits Visits Date Date Requested Authorized [id number] Authorized Specialty 05/26/2022 05/27/2023 1 1 Services Required Reason for Visit Reason Onset Date Comments Referral 05/26/2022 [employer] Encounter Details Date Type Department Care Team Description 05/26/2022 Telephone [facility] Avelino Jones, Refdennis roach ([employer]) Medicine - [facility] [address] [place] [address] [place] [address] [place] [phone] [place] [phone] Social History Tobacco Use Types Packs/Day Years [...] place to sleep or slept in a senior care (including now)? Sex Assigned at Date Recorded Not on file documented as of this encounter Miscellaneous Notes Telephone Encounter - Yohana Ash Product Management Analyst - 05/26/2022 4:53 PM EDT Called patient and told him that he needs appt to order mri as insurance wont pay for it. He said hethinks he is going to go to er Telephone Encounter - Luzma Viera - 05/26/2022 4:41 PM EDT Pt cb, he needs referral for MRI sent to [facility]. He didn't have a fax number. He is asking if this can be done so that he can go tomorrow. Pt requesting call once completed. Thank you! Telephone Encounter - Yohana Ash Product Management Analyst - 05/26/2022 1:38 PM EDT Pt notified. For him to call medicaid Telephone Encounter - Aletha Agosto - 05/26/2022 1:29 PM EDT Pt cb and was informed referral was faxed. He then inquired if Medicaid will pay for everything that Medicare does not for his visit w/ release coordinator and said he was told by Medicare that this office could call Medicaid for him to find out this info. Please advise at [phone] TY Telephone Encounter - Yohana Ash Product Management Analyst - 05/26/2022 1:16 PM EDT Faxed referral Telephone Encounter - Nadya Heaton - 05/26/2022 12:26 PM EDT Pt contacted the office in [place] and was told they could not schedule him without a referral. Pt was advised the referral was approved by Dr Jones but the office says they have not received it yet. Pt updated the fax # as [phone]. Pt says his foot and ankle are swollen an painful, he is having a hard time walking. The hospital where he is right now is close to 45 min away, the release coordinator is much closer. Please contact pt at [phone] if the office is able to have some type of confirmation that the referral was received. Thank you Telephone Encounter - Avelino Jones DO - 05/26/2022 11:10 AM EDT We can fax a referral in for Yossi but I do not think he needs or require a referral, he can call and schedule his appointment himself. We can however send a referral in for him. Referral will be for right foot pain. Telephone Encounter - Aletha Agosto - 05/26/2022 8:24 AM EDT Copied from [facility] #[id number]. Topic: Referral Request >> May 26, 2022 8:23 AM Aletha Sanchez wrote: Pt called and said he is working in [place] and his big toe on his R foot is worse than it's ever been. He said it is red and swollen and PCP has seen him in the past for this issue. Pt inquiring if an urgent referral to Dr. Caballero can be faxed coty to [phone]. Please advise at [phone] TY documented in this encounter Plan of Treatment Scheduled Referrals Name Type Priority Associated Order Schedule Diagnoses Ambulatory Referral Outpatient Referral Routine Foot swelling Expected: to Podiatry 05/26/2022, Expires: 05/26/2023 documented as of this encounter Visit Diagnoses Diagnosis Foot swelling - Primary Swelling of limb documented in this encounter Care Teams Worker'S Compensation Claims Examiner Relationship Specialty Start Date End Date Avelino Jones DO PCP - General Internal Medicine 11/05/[address] [place] [address] [place] [phone] documented as of this encounter
--- OUTSIDE RECORDS SUMMARY | 2022-05-28 09:58 | XMS_ITS | Encounter Summary ---
:1955 Author Organization [facility] ([facility]) Address [address] [address] Care Team Providers Name Role Phone Unavailable Primary Care Provider Unavailable Encounter Details Date Type Department Care Team Description 10/25/2013 Hospital Encounter [facility] GENERIC OP DEP Freedom Wade, MD MIKI Kuhn 827 Gera Dillard MD 21 201 (Wo rk) Social History Tobacco Use Types Packs/Day Years Used Date Never Assessed Sex Assigned at Date Recorded Not on file documented as of this encounter Miscellaneous Notes Outpatient Note - Freedom Wade MD - 10/25/2013 11:59 AM EST CHIEF COMPLAINT: Cervical neck pain radiating to the right arm and pain in the right shoulder with restricted range of motion. HISTORY OF PRESENT ILLNESS: The patient is seen for orthopedic evaluation complaining of cervical neck pain radiating to the right arm and pain in the right shoulder which restricts range of motion. PAST HISTORY: Diabetes and history of right shoulder surgery with arthroscopic debridement of the subacromial space. MEDICATIONS: 1. Lantus. 2. Metformin. 3. Lisinopril. 4. Flexeril. 5. Ibuprofen. 6. Tylenol. PHYSICAL EXAMINATION: HEENT: Negative. Cervical spine: Pain and tenderness of the paraspinal area. Range of motion restricted, tenderness at the spinous area. Pain radiating to right arm with numbness and tingling sensation of the right hand. Right shoulder: Wound is healed. No sign of infection. No sign of phlebitis. Range of motion is still restricted. Abduction is 90 degrees. Forward flexion is 100 degrees. Internal and external rotation is with pain. PHYSICAL EXAMINATION: The lumbar spine with pain, but no gross weakness, no paralysis of the lower extremities. IMPRESSION: 1.Cervical spondylosis 2.Status post diagnostic arthroscopy, debridement of the right shoulder and 3. cervical radiculopathy 4. Low back pain. PLAN: The patient was advised to bring the x-ray films of the cervical spine, lumbar spine which he had already taken and also to bring The MRI of the cervical spine films for review . Advised to continue physical therapy of the right shoulder. Instructions given. Pain medications if necessary. Dictated by: Freedom Wade MD [id number] / [id number] / [id number] P CC: Signed by: Freedom Wade 10/26/2013 1251 Electronically signed by Marko Lott Non-Ord Based Chip Frier([facility] [place] [facility]) at 10/27/2013 1:53 AM EST documented in this encounter Plan of Treatment Not on filedocumented as of this encounter Visit Diagnoses Not on filedocumented in this encounter
--- OUTSIDE RECORDS SUMMARY | 2022-05-28 09:58 | XMS_ITS | Encounter Summary ---
:1955 [facility] Address [address] [place] [address] Care Team Providers Name Role Phone Avelino Jones DO Primary Care Provider Reason for Visit Reason Onset Date Comments Med Refill 03/09/2022 New Pharmacy Encounter Details Date Type Department Care Team Description 03/09/2022 Refill [facility] Avelino Jones, Diab eti peripheral Medicine - [place] [address] DO neuropathy ([facility]/HCC) [address] [place] [address] [place] [address] [phone] Social History Tobacco Use Types Packs/Day Years [...] place to sleep or slept in a retirement (including now)? Sex Assigned at Date Recorded Not on file documented as of this encounter Miscellaneous Notes Telephone Encounter - Tosha Wells - 03/09/2022 9:30 AM EDT Pt must have new prescriptions sent to [facility]. Pt also requesting an RX Test Strips: Freestyle Lite Test Strips Pt testing blood sugar 3 times daily 90 day supply with refills. 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
--- OUTSIDE RECORDS SUMMARY | 2022-05-28 09:58 | XMS_ITS | Encounter Summary ---
:1955 Author Organization [facility] Address [address] [place] [address] Care Team Providers Name Role Phone vAelino Jones DO Primary Care Provider Reason for Referral MRI/CAT/PET Scan (Routine) - Closed Specialty Diagnoses / Procedures Referred By Contact Refer red To Contact Radiology Diagnoses Right upper lobe pulmonary nodule Avelino Jones, Y Ct Procedures CT chest without contrast [address] [place] [address] [place] [phone] Referral ID Status Reason Start Date Expiration Date Visits Requ ested Visits Authorized [id number] Closed 02/09/2022 08/08/2023 1 1 Reason for Visit MRI/CAT/PET Scan (Routine) - Closed Specialty Diagnoses / Procedures Referred By Contact Refer red To Contact Radiology Diagnoses Right upper lobe pulmonary nodule Avelino Jones DO Ct Procedures CT chest without contrast [address] [facility] [place] [address] [place] [phone] Referral ID Status Reason Start Date Expiration Date Visits Requ ested Visits Authorized [id number] Closed 02/09/2022 08/08/2023 1 1 Encounter Details Date Type Department Care Team Description 04/23/2022 Hospital Encounter [facility] ight upper lobe Imaging Center - pulmonary n odule Imaging Center - [place] [address] [place] [address] Social History Tobacco Use Types Packs/Day Years Used Date Current Every Day Smoker 1 Sta rted: 1969 Smokeless Tobacco: Never Used Comments: Half pack every 2 days, dayna huerta has smoked a pack a day or [...] place to sleep or slept in a group home (including now)? Sex Assigned at Date Recorded Not on file documented as of this encounter Medications at Time of Discharge Medication Sig Dispensed Refills Start Date End Date atorvastatin (LIPITOR) 40 mg Take 1 tablet 90 tablet 3 02/21 tabletIndications: Pure (40 mg total) hypercholesterolemia by mouth daily empagliflozin (JARDIANCE) 25 Take 1 tablet 90 tablet 02/2103/16/2023 mg tablet tablet (25 mg total) by mouth daily ergocalciferol, vitamin D2, Take 1,000 mcg 0 (VITAMIN D2 ORAL) by mouth daily FREESTYLE LITE STRIPS strip Test three 100 strip 3 03/12/20 22 times a day. Dx e11.65 insulin Inject 30 Units 15 pen 3 03/16/2022 glargine,hum.rec.anlog under the skin (BASAGLAR KWIKPEN U-100 2 (two) times a INSULIN) 100 unit/mL (3 mL) day Give 90 day insulin penIndications: supply Diabetic peripheral neuropathy (CMS/HCC) lisinopriL (ZESTRIL) 5 mg Take 1 tablet 90 tablet 3 022 tablet (5 mg total) by mouth daily metFORMIN (GLUCOPHAGE) 1,000 Take 1 tablet 180 tablet 3 02/21 mg tabletIndications: (1,000 mg Diabetic peripheral total) by mouth neuropathy (CMS/HCC) 2 (two) times a day multivitamin 400 mcg tablet Take 1 tablet 0 by mouth daily pantoprazole (PROTONIX) 40 mg Take 1 tablet 90 tablet 3 03/16/2023 DR tabletIndications: (40 mg total) Gastroesophageal reflux by mouth daily disease without esophagitis QUEtiapine (SEROquel) 100 mg Take 1 tablet 90 tablet 3 02/21 tablet (100 mg total) by mouth every evening atorvastatin (LIPITOR) 40 mg Take 1 tablet 7 tablet 0 02/2005/05/2022 tabletIndications: Pure (40 mg total) hypercholesterolemia by mouth daily pantoprazole (PROTONIX) 40 mg Take 1 tablet 90 tablet 3 05/05/2022 DR tablet (40 mg total) by mouth daily documented as of this encounter Plan of Treatment Not on filedocumented as of this encounter Procedures Procedure Name Priority Date/Time Associated Diagnosis Comme nts CT CHEST WO Routine 04/23/2022 7:58 AM Right upper lobe Resul ts for this CONTRAST EDT pulmonary nodule procedure a re in the results section. documented in this encounter Results CT chest without contrast (04/23/2022 7:58 AM [...] left kidney. This report was created using [employer] p[employer] software. Thank you for allowing us to [...] left kidney. This report was created using [employer] pte software. Thank you for allowing us to participate in the care of your patient. Avelino Jones DO IMG CT PROCEDURES documented in this encounter Visit Diagnoses Diagnosis Right upper lobe pulmonary nodule documented in this encounter Care Teams Cigarette Vendor Relationship Specialty Start Date End Date Avelino Jones DO PCP - General Internal Medicine 11/05/21 1207 [facility] [place] [phone] documented as of this encounter
--- OUTSIDE RECORDS SUMMARY | 2022-05-28 09:58 | XMS_ITS | Encounter Summary ---
:1955 Author [facility] Address [address] [facility] [place] [address] Care Team Providers Name Role Phone Avelino Jones DO Primary Care Provider Reason for Visit Reason Onset Date Comments Med Refill 03/10/2022 Pt requesting s hort supply of atorvastatin and pantoprazole Encounter Details Date Type Department Care Team Description 03/10[facility]2022 [facility], Med Refill (Pt [facility] requesting short supply [address] atorvastatin and [address] [place] pantoprazole) [place] [phone] Social History Tobacco Use Types Packs/Day Years [...] documented as of this encounter Miscellaneous Notes Addendum Note - Amy Webb Med Asst - 03/16/2022 11:11 AM EDT Addended by: AMY WEBB on: 03/16/2022 11:11 AM Modules accepted: Orders Telephone Encounter - Amy Webb Med Asst - 03/16/2022 11:10 AM EDT I send all prescription for a 90 day supply to [facility] as requested. I called pt and left VM letting pt know medication was called in. Telephone Encounter - Nadya Heaton - 03/16/2022 10:08 AM EDT Pt's Zabrina was advised by [facility] [place] they pantoprazole and atorvastatin will be suspended for 7 days before it can be sent because of the short supply sent to the local pharmacy. Zabrina says this will cause the pt to run out of medication. They do not want to use the mail order anymore and arerequesting the 7 day supplies be canceled and the 90 day supplies of atorvastatin and pantoprazole be sent to [facility]. Pt wants all prescriptions to go to [facility] on [address] and no longer sent to [facility]. Zabrina was advised to contact the office close to when the supply is low to verify the scripts will be sent to [facility]. Zabrina can be reached at [phone] to advise when the Rx has been sent. Thank you Telephone Encounter - Amy Webb Parimutuel Cashier - 03/10/2022 9:36 AM EDT I send 1 week supplied and called pt and left VM relaying message. Telephone Encounter - Jyoti Garcia - 03/10/2022 9:28 AM EDT Copied from [facility] #[id number]. Topic: Renew Medication >> Mar 10, 2022 9:19 AM Jyoti Garcia wrote: Pt called and advised mail order for pantoprazole and atorvastatin was completed yesterday. Pt is concerned that will run out of medications before mail order arrives and is asking if a short supply can be sent to [facility] on [facility]. Please review scripts below and send short supply if appropriate 1) Atorvastatin 40 mg Sig: Take 1 tab by mouth daily Quantity: ? 2) Pantoprazole 40 mg Sig: Take 1 tab by mouth daily Quantity: ? 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
--- OUTSIDE RECORDS SUMMARY | 2022-05-28 09:58 | XMS_ITS | Encounter Summary ---
:1955 Author Organization [facility] Address [address] [facility] [place] [address] Care Team Providers Name Role Phone Avelino Jones DO Primary Care Provider Reason for Referral Radiology (Routine) - Closed Specialty Diagnoses / Procedures Referred By Contact Refer red To Contact Radiology Diagnoses Lipoma of torso Avelino Jones DO [facility] Procedures Ultrasound abdomen limited [address] [place] [address] [address] [place] [phone] Referral ID Status Reason Start Date Expiration Date Visits Requ ested Visits Authorized [id number] Closed 02/09/2022 08/08/2023 1 1 Reason for Visit Radiology (Routine) - Closed Specialty Diagnoses / Procedures Referred By Contact Refer red To Contact Radiology Diagnoses Lipoma of torso Avelino Jones DO [facility] Procedures Ultrasound abdomen limited [address] [place] [address] [address] [place] [phone] Referral ID Status Reason Start Date Expiration Date Visits Requ ested Visits Authorized [id number] Closed 02/09/2022 08/08/2023 1 1 Encounter Details Date Type Department Care Team Description 04/23/2022 Hospital Encounter [facility] Lipoma of torso Center - Imaging Center - Ultrasound [address] [place] [address] Social History Tobacco Use Types Packs/Day Years [...] place to sleep or slept in a longterm (including now)? Sex Assigned at Date Recorded [...] Priority Date/Time Associated Diagnosis Comme nts US ABDOMEN LIMITED Routine 04/23/2022 7:40 AM Lipoma of torso Results for this EDT procedure are i n the results section. documented in this encounter Results Ultrasound abdomen limited (04/23/2022 7:40 AM EDT) [...] was identified. This report was created using [employer] software. Thank you for allowing us to [...] was identified. This report was created using [employer] software. Thank you for allowing us to participate in the care of your patient. Avelino Jones DO IMG US PROCEDURES documented in this encounter Visit Diagnoses Diagnosis Lipoma of torso documented in this encounter Care Teams Backup Administrator Relationship Specialty Start Date End Date Avelino Jones DO PCP - General Internal Medicine 11/05/[address] [place] [address] [place] [phone] documented as of this encounter
--- OUTSIDE RECORDS SUMMARY | 2022-05-28 09:58 | XMS_ITS | Encounter Summary ---
:1955 Author Organization [employer] Address [address] [place] [address] Care Team Providers Name Role Phone Avelino Jones DO Primary Care Provider Reason for Visit Reason Onset Date Comments podiatry ref [id number] update 11/12/2021 Encounter Details Date Type Department Care Team Description 11/12/2021 Telephone [email or web address] [facility] Avelino Jones po diatry ref [id number] Higginson DO update [address] [facility] [address] [place] [address] [place] [phone] [address] Social History Tobacco Use Types Packs/Day Years [...] place to sleep or slept in a correction (including now)? Sex Assigned at Date Recorded Not on file documented as of this encounter Miscellaneous Notes Telephone Encounter - Ananya Brandt - 11/12/2021 7:50 AM EST [facility] [address] [facility] [address] Main : [phone] or Referral ID# [id number] Referral Center received a fax from the office above and confirmed request records were received.No appt has been scheduled at this time. Pt stated that they already have a doctor and will call if needed Patient may contact their office directly if they still wish to be seen. Thanks Please send any responses to [facility] Center - sakshi if needed documented in this encounter Plan of Treatment Not on filedocumented as of this encounter Visit Diagnoses Not on filedocumented in this encounter Care Teams Training Professional Relationship Specialty Start Date End Date Avelino Jones, PCP - General Internal Medicine 11/05/[address] [place] [phone] documented as of this encounter
--- OUTSIDE RECORDS SUMMARY | 2022-05-28 09:58 | XMS_ITS | Encounter Summary ---
:1955 Author Organization [facility] Address [address] [place] [address] Care Team Providers Name Role Phone Arti Rothman Primary Care Provider Encounter Details Date Type Department Care Team Description 12/21/2013 Hospital Encounter [facility] Kathryn Rothman [facility] [place] [address] [place] [address] Type II or [facility] Historical Provider, MD Aldo None unspecified type Department diabetes mellit us without mention of complication, n ot stated as uncontrolled Social History Tobacco Use Types Packs/Day Years Used Date Never Assessed Food Insecurity Answer Date Recorded Within the [...] encounter Procedures Procedure Name Priority Date/Time Associated Comments Diagnosis MICROALBUMIN/CREATININ Routine 12/21/2013 1:04 PM Results for this E RATIO HIS EST procedure are i n the results section. LDL Routine 12/21/2013 1:04 PM Results f or this CHOLESTEROL,CALCULATED EST proce dure are in the results section. EGFR NON- Routine 12/21/2013 1:04 PM Resul ts for this BURMESE(PTH) EST procedure are in the results section. EGFR Routine 12/21/2013 1:04 PM Results for this (PTH) EST procedure are i n the results section. AUTOMATED DIFFERENTIAL Routine 12/21/2013 1:04 PM Results for this ONLY EST procedure are i n the results section. THYROID STIMULATING Routine 12/21/2013 1:04 PM Re sults for this HORMONE PROGRESSIVE EST procedur e are in the results section. CBC WITH AUTO Routine 12/21/2013 1:04 PM Results for this DIFFERENTIAL EST procedure are i n the results section. LIPID PANEL Routine 12/21/2013 1:04 PM Results f or this EST procedure are i n the results section. COMPREHENSIVE Routine 12/21/2013 1:04 PM Results for this METABOLIC PANEL EST procedure ar e in the results section. documented in this encounter Results MICROALBUMIN/CRETININE RATIO HIS (12/21/2013 1:04 PM EST) [facility] gist Method Time Signature Creatinine, Urine 185.64 mg/dL [facility] Ur Malb/Crea 3.2 0.0 - 29.9 [facility] mcg/mg SYSTEM Ur Microalbumin 0.6 mg/dL [facility] Specimen (Source) Anatomical Collection Method Collection Time Re ceived Time Location / / Volume Laterality 12/21/2013 1:04 PM EST Arti MARTINEZ LAB HISTORICAL ORDERS Performing Organization Address City/State/ZIP Code Phon e Number [facility] [address] [place] [address], EGFR (PTH) (12/21/2013 1:04 PM EST) athologist Signature eGFR >60 >=60- [facility] mL/min/1.73 SYSTEM m2 Comment: Result calculated by Discern Ex pert. Specimen (Source) Anatomical Collection Method Collection Time Re ceived Time Location / / Volume Laterality 12/21/2013 1:04 PM EST Arti MARTINEZ LAB HISTORICAL ORDERS Performing Organization Address [facility]/ZIP Code Phon e Number [facility] [address] (ABNORMAL) Comprehensive metabolic panel (12/21/2013 1:04 PM EST) Patholo gist Method Time Signature Sodium 138 136 - 145 [facility] mmol/L SYSTEM Total Bilirubin 0.6 0.3 - 1.0 [facility] mg/dL SYSTEM Anion Gap 5 3 - 11 [facility] mmol/L SYSTEM Chloride 102 98 - 107 [facility] mmol/L SYSTEM Alkaline 100 34 - 104 [facility] Phosphatase IU/L SYSTEM Potassium 4.4 3.5 - 5.3 [facility] mmol/L SYSTEM Creatinine 0.87 0.70 - [facility] 1.30 mg/dL SYSTEM BUN 14 7 - 25 [facility] mg/dL SYSTEM Glucose Fasting 133 (H) 70 - 99 [facility] mg/dL SYSTEM AST 19 13 - 39 [facility] IU/L SYSTEM Calcium 9.4 8.6 - 10.3 [facility] mg/dL SYSTEM Total Protein 6.9 6.4 - 8.9 [facility] gm/dL SYSTEM Albumin 4.7 3.5 - 5.7 [facility] gm/dL SYSTEM CO2 31 21 - 31 [facility] mmol/L SYSTEM ALT (SGPT) 28 7 - 52 [facility] IU/L SYSTEM Specimen (Source) Anatomical Collection Method Collection Time Re ceived Time Location / / Volume Laterality 12/21/2013 1:04 PM EST Arti MARTINEZ LAB BLOOD ORDERABLES Performing Organization Address City/[facility]/ZIP Code Phon e Number [facility] [address] (ABNORMAL) Automated Differential Only (12/21/2013 1:04 PM EST) Analysis Performed At Patho logist Time Signature Monocytes 9 % [facility] Relative SYSTEM Eosinophils 2 % [facility] Relative SYSTEM Lymphocytes 3.00 1.00 - [facility] Absolute 4.80 K/mcL SYSTEM Abs Eos Ct 0.12 0.00 - [facility] 0.45 K/mcL SYSTEM Basophils 0.03 0.00 - [facility] Absolute 0.20 K/mcL SYSTEM Basophils 0 % [facility] Relative SYSTEM Immature 0.3 % [facility] Granulocyte % SYSTEM Neutrophils 44 % [facility] Relative SYSTEM Lymphocytes 44 % [facility] Relative SYSTEM Absolute Immature 0.02 0.00 - [facility] AB Granulocytes 0.06 K/[facility] SYSTEM Neutrophils 3.03 1.70 - [facility] Absolute 7.80 K/mcL SYSTEM Monocytes 0.61 0.00 - [facility] Absolute 1.00 K/mcL SYSTEM Specimen (Source) Anatomical Collection Method Collection Time Re ceived Time Location / / Volume Laterality 12/21/2013 1:04 PM EST Arti MARTINEZ LAB BLOOD ORDERABLES Performing Organization Address City/State/ZIP [facility] Phon e Number [facility] [address] CBC auto differential (12/21/2013 1:04 PM EST) athologist Signature WBC 6.8 4.0 - 11.0 [facility] K/mcL SYSTEM RDW-CV 12.3 11.0 - 18.5 [facility] % SYSTEM MCV 89 83 - 99 NM [facility] MPV 10.5 9.0 - 12.6 [facility] fL SYSTEM RBC 4.99 4.30 - 5.90 [facility] M/mcL SYSTEM MCH 30.9 27.0 - 33.0 [facility] pg SYSTEM MCHC 34.6 31.0 - 35.0 [facility] gm/dL SYSTEM Platelets 197 140 - 400 [facility] K/mcL SYSTEM RDW-SD 39.4 37.0 - 53.1 [facility] fL SYSTEM Hematocrit 44.5 38.5 - 53.0 [facility] % SYSTEM Hemoglobin 15.4 13.0 - 17.3 [facility] gm/dL SYSTEM Specimen (Source) Anatomical Collection Method Collection Time Re ceived Time Location / / Volume Laterality 12/21/2013 1:04 PM EST Arti MARTINEZ LAB BLOOD ORDERABLES Performing Organization Address City/[facility]/ZIP [facility] Phon e Number [facility] [address] [place] [address], Lipid panel (12/21/2013 1:04 PM EST) Patholo gist Method Time Signature Cholesterol 197 -<=199 [facility] mg/dL SYSTEM HDL Cholesterol 52 >=41- [facility] mg/dL SYSTEM Triglycerides 68 -<=149 [facility] mg/dL SYSTEM CHOL/HDL RATIO 3.79 2.00 - [facility] HISTORICAL 6.09 SYSTEM Specimen (Source) Anatomical Collection Method Collection Time Re ceived Time Location / / Volume Laterality 12/21/2013 1:04 PM EST Arti MARTINEZ LAB BLOOD ORDERABLES Performing Organization Address [facility]/ZIP Code Phon e Number [facility] [address] LDL CHOLESTEROL,CALCULATED (12/21/2013 1:04 PM EST) athologist Signature LDL Calculated 131 mg/dL [facility] Comment: LDL Cholesterol Interpretation<70 mg/dL ?Optimal with existing coronary artery disease<100 mg/dL ? Optimal without coronary artery [id number] mg/dL ?Danita r optimal/above [id number] mg/dL ?Borderline [id number] mg/dL ? High>190 mg/dL ? Very high Specimen (Source) Anatomical Collection Method Collection Time Re ceived Time Location / / Volume Laterality 12/21/2013 1:04 PM EST Arti MARTINEZ LAB HISTORICAL ORDERS Performing Organization Address [facility] Code Phon e Number [facility] [employer] [address] Thyroid Stimulating Hormone Progressive (12/21/2013 1:04 PM EST) athologist Signature TSH 3.55 0.30 - 5.00 [facility] mcIU/mL SYSTEM Specimen (Source) Anatomical Collection Method Collection Time Re ceived Time Location / / Volume Laterality 12/21/2013 1:04 PM EST Arti MARTINEZ LAB BLOOD ORDERABLES Performing Organization Address City/[facility]/ZIP Code Phon e Number [employer] [facility] [address] EGFR NON-(PTH) (12/21/2013 1:04 PM EST) P athologist Signature eGFR >60 >=60- [facility] mL/min/1.73 SYSTEM m2 Comment: In the following clinical settings the E stimated Glomerular Filtration Rate (eGFR) calculation may be inaccurate and creatinine clearance may be appropriate: ??extremes of age (<18 or >80 yrs) or body size, severe malnutrition or obesit y, diseases of skeletal muscle, paraplegia or quadriple brenda, strict vegetarian diet, rapidly changing kidney function, or prior to dosing drugs with significant toxicity that are excreted by the kidney. ??Decreased eGF R for >3 months to levels of 30-59 (mode rate) is classified as stage 3; 15-29 (severe), s tage 4; <15, kidney failure. eGFR >60 >=60- mL/min/1.73m2 [facility] Comment: Result calculated by Discern Stevie rivera. Specimen (Source) Anatomical Collection Method Collection Time Re ceived Time Location / / Volume Laterality 12/21/2013 1:04 PM EST Arti MARTINEZ LAB HISTORICAL ORDERS Performing Organization Address City/State/ZIP Code Phon e Number [facility] [address] documented in this encounter Visit Diagnoses Diagnosis Type II or unspecified type diabetes miryam litus without mention of complication, not stated as uncontrolled documented in this encounter Care Teams Sustainable Commun[employer] Designer Relationship Specialty Start Date End Date Arti Rothman PA PCP - General 12/21/13 06/26/[address] [place] [phone] documented as of this encounter
--- OUTSIDE RECORDS SUMMARY | 2022-05-28 09:58 | XMS_ITS | Encounter Summary ---
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 [address] [place] [address] Referral ID Status Reason Start Date Expiration Date Visits Requ ested Visits Authorized [id number] Closed 02/09/2022 08/08/2023 1 1 Encounter Details Date Type Department Care Team Description 02/25/2022 Hospital Encounter [facility]-he[facility] ulcer of right foot, limited to breakdown of skin ([facility]); Imaging Center - Type 2 diab etes mellitus with polyneuropathy ([facility]); Imaging Center - MRI Other acute osteomyelitis, r ight ankle and foot ([facility]) [address] [place] [address] Social History Tobacco Use Types Packs/Day Years [...] Sig Dispensed Refills Start Date End Date ergocalciferol, vitamin Take 1,000 mcg by 0 D2, (VITAMIN D2 ORAL) mouth daily multivitamin 400 mcg Take 1 tablet by 0 tablet mouth daily atorvastatin (LIPITOR) 40 Take 1 tablet (40 90 tablet 3 03/09/2022 mg tablet mg total) by mouth daily empagliflozin (JARDIANCE) Take 1 tablet (25 90 tablet 3 03/09/2022 25 mg tablet tablet mg total) by mouth daily insulin Inject 30 Units 15 pen 3 12/04/2021 glargine,hum.rec.anlog under the skin 2 (BASAGLAR KWIKPEN U-100 (two) times a day INSULIN) 100 unit/mL (3 Give 90 day supply mL) insulin pen lisinopriL (ZESTRIL) 5 mg Take 1 tablet (5 mg 90 tablet 3 0 12/04/2021 03/09/2022 tablet total) by mouth daily metFORMIN (GLUCOPHAGE) Take 1 tablet 180 tablet 3 12/04/2021 03/09/2022 1,000 mg (1,000 mg total) by tabletIndications: mouth 2 (two) times Diabetic peripheral a day neuropathy (CMS/HCC) pantoprazole (PROTONIX) Take 1 tablet (40 90 tablet 3 12/0403/09/[address] tablet mg total) by mouth daily QUEtiapine (SEROquel) 100 Take 1 tablet (100 90 tablet 3 03/09/2022 mg tablet mg total) by mouth every evening documented as of this encounter Plan of Treatment Not on filedocumented as of this encounter Procedures Procedure Name Priority Date/Time Associated Diagnosis Comme nts MRI FOOT RIGHT W Routine 02/25/2022 7:24 PM Non-healing ulcer of Results for this WO CONTRAST EDT right foot, limited to proce dure are in breakdown of skin the result s (CMS/HCC) section. 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) Other acute osteomyelitis, right ankle and foot (CMS/HCC) documented in this encounter Results (ABNORMAL) MRI foot right with and without contrast (02/25/2022 7:24 PM EDT) Anatomical Region Laterality Modality Lower Extremities, Foot, Reading Worklist MSK Right Magnetic Resonance Specimen (Source) Anatomical Location Collection Method / Collectio n Time Received Time / Laterality Volume Narrative 02/26/2022 3:31 PM EDT PROCEDURE INFORMATION: Exam: MR Right Lower Extremity Without a nd With Contrast; Forefoot Exam date and time: 02/25/2022 5:46 PM Age: 66 years old Clinical indication: Other: N/a; Additio nal info: Non-pressure chronic ulcer of other part of right foot limited to breakdown of skin. Type 2 vivian betes mellitus with diabetic polyneuropathy. Other acute ost eomyelitis, right ankle and foot TECHNIQUE: Imaging protocol: MR of the Right foot w ithout and with intravenous contrast. Exam focused on th e forefoot. Contrast material: MULTIHANCE; Contrast volume: 18 ml; Contrast route: INTRAVENOUS (IV); ?? COMPARISON: No relevant prior studies available. FINDINGS: Bones and cartilage: Minimal degenerativ e change at the interphalangeal joints. Bipartite latera l hallux sesamoid. Prominent vessel incidentally noted at t he plantar aspect of the forefoot. ??No active erosions or active periostitis. No findings to suggest osteomyelitis at this time. Joint spaces: Moderate 1st metatarsophal angeal joint effusion with mild synovitis. This could be bland or septic. LIGAMENTS: Collateral ligaments of digits: Unremark able. No evidence of tear. Lisfranc ligament: Lisfranc ligament is intact. TENDONS: Flexor tendons of foot: Unremarkable. No evidence of tear. Extensor tendons of foot: Unremarkable. No evidence of tear. Muscles: Severe diffuse fatty muscle atr ophy with mild multifocal muscle edema and minimal diff use enhancement, consistent with a combination of pronoun alexandru denervation change and minimal multifocal myositis. Soft tissues: Irregularity of the skin a t the medial aspect of the great toe at the level of the int erphalangeal joint likely reflects skin ulceration. Mild en hancing cellulitis of the forefoot and toes, more pronounce d in the great toe. No drainable abscess. IMPRESSION: 1. Irregularity of the skin at the media l aspect of the great toe at the level of the interphala ngeal joint likely reflects skin ulceration. 2. Moderate 1st metatarsophalangeal join t effusion with mild synovitis. This could be bland or s eptic. 3. Mild enhancing cellulitis of the fore foot and toes, more pronounced in the great toe. No drainabl e abscess. 4. Severe diffuse fatty muscle atrophy w ith mild multifocal muscle edema and minimal diffuse enhance ment, consistent with a combination of pronounced denerva tion change and minimal multifocal myositis. THIS DOCUMENT HAS BEEN ELECTRONICALLY SI GNED BY ESME ROBBINS MD Procedure Note Esme Robbins MD - 2 PROCEDURE INFORMATION: Exam: MR Right Lower Extremity Without a nd With Contrast; Forefoot Exam date and time: 02/25/2022 5:46 PM Age: 66 years old Clinical indication: Other: N/a; Additio nal info: Non-pressure chronic ulcer of other part of right foot limited to breakdown of skin. Type 2 vivian betes mellitus with diabetic polyneuropathy. Other acute ost eomyelitis, right ankle and foot TECHNIQUE: Imaging protocol: MR of the Right foot w ithout and with intravenous contrast. Exam focused on th e forefoot. Contrast material: MULTIHANCE; Contrast volume: 18 ml; Contrast route: INTRAVENOUS (IV); COMPARISON: No relevant prior studies available. FINDINGS: Bones and cartilage: Minimal degenerativ e change at the interphalangeal joints. Bipartite latera l hallux sesamoid. Prominent vessel incidentally noted at t he plantar aspect of the forefoot. No active erosions or a ctive periostitis. No findings to suggest osteomyelitis at this time. Joint spaces: Moderate 1st metatarsophal angeal joint effusion with mild synovitis. This could be bland or septic. LIGAMENTS: Collateral ligaments of digits: Unremark able. No evidence of tear. Lisfranc ligament: Lisfranc ligament is intact. TENDONS: Flexor tendons of foot: Unremarkable. No evidence of tear. Extensor tendons of foot: Unremarkable. No evidence of tear. Muscles: Severe diffuse fatty muscle atr ophy with mild multifocal muscle edema and minimal diff use enhancement, consistent with a combination of pronoun alexandru denervation change and minimal multifocal myositis. Soft tissues: Irregularity of the skin a t the medial aspect of the great toe at the level of the int erphalangeal joint likely reflects skin ulceration. Mild en hancing cellulitis of the forefoot and toes, more pronounce d in the great toe. No drainable abscess. IMPRESSION: 1. Irregularity of the skin at the media l aspect of the great toe at the level of the interphala ngeal joint likely reflects skin ulceration. 2. Moderate 1st metatarsophalangeal join t effusion with mild synovitis. This could be bland or s eptic. 3. Mild enhancing cellulitis of the fore foot and toes, more pronounced in the great toe. No drainabl e abscess. 4. Severe diffuse fatty muscle atrophy w ith mild multifocal muscle edema and minimal diffuse enhance ment, consistent with a combination of pronounced denerva tion change and minimal multifocal myositis. THIS DOCUMENT HAS BEEN ELECTRONICALLY SI GNED BY ESME ROBBINS MD Rory Lopez DPM IMG MRI PROCEDURES documented in this encounter Visit Diagnoses Diagnosis Non-healing ulcer of right foot, limited to breakdown of skin (CMS/HCC) Type 2 diabetes mellitus with polyneurop athy ([facility]) Type II or unspecified type diabetes miryam litus with neurological manifestations, not stated as uncontrolled Other acute osteomyelitis, right ankle a nd foot (CMS/HCC) documented in this encounter Administered Medications Inactive Administered Medications - up to 3 most recent administrations Medication Order MAR Action Action Date Dose Rate Site gadobenate dimeglumine Given 02/25/2022 6:45 PM EDT 18 mL Right Hand (MULTIHANCE) injection 18 mL 18 mL (rounded from 18.14 mL = 0.2 mL/kg ? 90.7 kg), intravenous, Once in imaging, contrast, Starting on Wed02/25/22 at 1745, For 1 dose documented in this encounter Care Teams Brass Chaser Relationship Specialty Start Date End Date Avelino Jones DO PCP - General Internal Medicine 11/05/21 [address] [facility] MICHELLE Narayan [phone] documented as of this encounter
--- OUTSIDE RECORDS SUMMARY | 2022-05-28 09:58 | XMS_ITS | Encounter Summary ---
:1955 Author Organization [facility] Address [address] [facility] [place] [address] Care Team Providers Name Role Phone Avelino Jones DO Primary Care Provider Reason for Referral Consultation (Routine) - Authorized Specialty Diagnoses / Procedures Referred By Contact Refer red To Contact Podiatry Diagnoses Type 2 diabetes mellitus with hyperglycemia, without long-term current use of insulin (CMS/HCC) Avelino Jones DO [place]er[place], Jeffrey A, [address] [place] [address] [place] [phone] Phone: Fax: Referral ID Status Reason Start Expiration Visits Visits Date Date Requested Authorized [id number] Authorized Specialty 11/06/2022 1 1 Services 1 Required Reason for Visit Reason Comments New Patient Encounter Details Date Type Department Care Team Description 11/05/2021 Office Visit [facility] Avelino Jones Type 2 diabetes mellitus with hyperglycemia, without long-term current use of insulin (CMS/HCC) (Primary Dx); Medicine - Neto Delaney DO Pure hypercholesterolemia; [address] Benign prostatic hyperplasia with noctur ia; [address] [place] Gastroesophageal reflux dise ase without esophagitis; [place] [id number] Pulmonary nodules; [phone] Cigarette nicot ine dependence without complication; (Work) Screening for viral disease; [phone] BMI 26.0-26.9,a dult; (Fax) Diabetic ulcer of toe of right foot associated with type 2 diabetes mellitus, limited to breakdown of skin (CMS/HCC) Social History Tobacco Use Types Packs/Day Years [...] place to sleep or slept in a penitentiary (including now)? Sex Assigned at Date Recorded Not on file documented as of this encounter Last Filed Vital Signs Vital Sign Reading Time Taken Comments Blood Pressure 116/74 11/05/2021 9:18 AM EST Pulse 73 11/05/2021 9:18 AM EST Temperature 35.7 ??C (96.2 ??F) 11/05/2021 9:18 AM EST Respiratory Rate 18 11/05/2021 9:18 AM EST Oxygen Saturation 95% 11/05/2021 9:18 AM EST Inhaled Oxygen Concentration - - Weight 87.5 kg (193 lb) 11/05/2021 9:18 AM EST Height 182.9 cm (6') 11/05/2021 9:18 AM EST Body Mass Index 26.18 11/05/2021 9:18 AM EST documented in this encounter Patient Instructions Patient InstructionsKAvelino todd DO - 11/05/2021 9:00 AM EST Follow a moderate low carb diet. Continue to follow well-balanced diet Limit concentrated sweets and drinks. Plate should be 50% vegetables, 25% protein and 25% carbohydrates. Exercise on a daily basis. Walk 30 minutes per day or 15 minutes 2 times per day. Strengthening exercises 3 days per week. Drink plenty of water. Immunizations Coronavirus vaccine discussed with patient Recommend third coronavirus vaccine 6 months after second dose Patient did get his flu shot August 2021 Prevnar 11/05/2021 Pneumovax in October 2022 Tdap 2018 Shingrix discussed with patient Advised patient discuss cost of Shingrix with his pharmacist Preventive health PSA with next blood draw Hepatitis C with next blood draw Screening colonoscopy last done 2017 Medical history reviewed and updated Medication reviewed and updated Patient questions answered Labs Advised patient get labs done 1 week prior to his next appointment CBC with differential, CMP, lipid profile, UA, urine for microalbumin, hemoglobin A1c, PSA, hepatitis C Advised patient to get labs done through [facility] lab Diabetes Continue present diabetic medical program Recent hemoglobin A1c was 8.2 A1c goal is to try and lower A1c to less than 7 We will adjust patient's medications pending A1c results in 3 months Diabetic foot exam with next appointment Patient have diabetic foot exam done through podiatry as well documented in this encounter Progress Notes Avelino Jones DO - 11/05/2021 9:00 AM EST Assessment/Plan Patient does take Seroquel at nighttime to help with anxiety and tubal bowel syndrome. He states his IBS flares when he is anxious or stressed Patient Instructions Follow a moderate low carb diet. Continue to follow well-balanced diet Limit concentrated sweets and drinks. Plate should be 50% vegetables, 25% protein and 25% carbohydrates. Exercise on a daily basis. Walk 30 minutes per day or 15 minutes 2 times per day. Strengthening exercises 3 days per week. Drink plenty of water. Immunizations Coronavirus vaccine discussed with patient Recommend third coronavirus vaccine 6 months after second dose Patient did get his flu shot August 2021 Prevnar 11/05/2021 Pneumovax in October 2022 Tdap 2017 Shingrix discussed with patient Advised patient discuss cost of Shingrix with his pharmacist Preventive health PSA with next blood draw Hepatitis C with next blood draw Screening colonoscopy last done 2017 Medical history reviewed and updated Medication reviewed and updated Patient questions answered Labs Advised patient get labs done 1 week prior to his next appointment CBC with differential, CMP, lipid profile, UA, urine for microalbumin, hemoglobin A1c, PSA, hepatitis C Advised patient to get labs done through [email or web address] lab Diabetes Continue present diabetic medical program Recent hemoglobin A1c was 8.2 A1c goal is to try and lower A1c to less than 7 We will adjust patient's medications pending A1c results in 3 months Diabetic foot exam with next appointment Patient have diabetic foot exam done through podiatry as well Will discuss smoke cessation patient next appointment Patient states he is down to less than a half a pack a day every 2 days We will schedule a welcome to Medicare appointment with his next appointment Diagnoses and all orders for this visit: Type 2 diabetes mellitus with hyperglycemia, without long-term current use of insulin (CMS/HCC) - Ambulatory Referral to Podiatry; Future - Comprehensive metabolic panel; Future - Hemoglobin A1c; Future - Lipid panel; Future - Urinalysis; Future - Albumin / creatinine urine ratio; Future - CBC and differential; Future Pure hypercholesterolemia - Lipid panel; Future Benign prostatic hyperplasia with nocturia - CBC and differential; Future - PSA, Diagnostic; Future Gastroesophageal reflux disease without esophagitis Pulmonary nodules Cigarette nicotine dependence without complication Screening for viral disease - Hepatitis C Antibody w/rfl Quant RNA, PCR w/rfl Genotype; Future BMI 26.0-26.9,adult Diabetic ulcer of toe of right foot associated with type 2 diabetes mellitus, limited to breakdown of skin (CMS/HCC) Subjective Patient ID: Yossi Garcia is a 66 y.o. male. Patient presents for establishment of a new primary care physician. Diabetes. Present since 1992.. Came on gradually. Rated as moderate. Has improved since onset. Feelsbetter compared to last visit. Taking medication as prescribed. No medication side effects noted.?? Trying to follow recommended diet. Patient is not exercising and patient is working to improve exercise routine. Condition has been controlled. Glucose Monitoring: No. Patient is not checking blood sugars daily. Fasting blood sugars not being monitored. Hypoglycemic Episodes: None. Hyperglycemic Episodes: None. Denies associated increased appetite, dizziness, fatigue, nausea, neuropathy, sweet breath odor, nephropathy, edema, poor wound healing, increased thirst, increased urination, blurred vision, change in vision, retinopathy, vomiting, weakness, weight gain, weight loss and inability to lose weight. The patient states he does have diabetic peripheral neuropathy in both of his feet. He does have a wound over his right first toe which occurred when he stepped on a screw about 1 year ago. He did not know he had stepped on a screw due to his peripheral neuropathy. He has been following with a rural health consultant for this he still has a area of callus and ulceration over the area from the prior trauma. He also developed some occasional trauma to his left first toe as well if he is on his feet for prolonged periods of time depending upon the pressure and will develop some ecchymosis in this area. He does have chronic pain over his right fifth metatarsal as he previously broke this bone about a year ago as well. The patient also has diabetic retinopathy in his left eye. He states that his A1c is at not been well controlled over the years. He states his A1c is normally range between 11 and 13. Recently his A1c was 8.2. He has very poor vision in his left eye due to his diabetic retinopathy and some bleeding that is within the eye itself. He has had the cataract removed from his left eye along with a lens implant. His his vision is worse when he is outside the daylight is a little better when he is inside. Hestates that his retinologist and senior administrative support feel he will be able to get him labs vision back once the blood has been removed. His vision is 20/25 in his right eye. The patient missed that he has not taken very good care of himself over the years. He used to abuse cocaine and have been in at rehab on 3 different occasions most recently in 2006. He states has not used cocaine since 2012. Also states that he may have had some coronary vasospasm associated with cocaine use in the past and had possibly cardiac dysrhythmia or even a mild heart attack associated with his cocaine use. He still does use some marijuana about 3-4 times per month. However he is not used any cocaine he states since 2013. Review of Systems Constitutional: Negative for activity change, appetite change, chills, fatigue, fever and unexpectedweight change. HENT: Negative for congestion, ear discharge, ear pain, nosebleeds, postnasal drip, rhinorrhea and sore throat. Eyes: Negative for discharge, redness and visual disturbance. Decreased vision left eye secondary to diabetic retinopathy Respiratory: Negative for cough, chest tightness, shortness of breath and wheezing. Cardiovascular: Negative for chest pain, palpitations and leg swelling. Gastrointestinal: Negative for abdominal pain, blood in stool, constipation and diarrhea. Endocrine: Negative for cold intolerance, heat intolerance, polydipsia, polyphagia and polyuria. Genitourinary: Negative for dysuria, frequency, hematuria and urgency. Musculoskeletal: Negative for arthralgias, back pain and neck pain. Skin: Negative for rash. Callus and foot ulcer right first toe Allergic/Immunologic: Negative for environmental allergies and food allergies. Neurological: Positive for numbness. Negative for dizziness, seizures, syncope and headaches. Numbness in both feet secondary to diabetic peripheral neuropathy Psychiatric/Behavioral: Negative for decreased concentration, dysphoric mood and sleep disturbance. The patient is nervous/anxious. Anxiety Objective Vitals: 11/05/21 0918 BP: 116/74 BP Location: Right arm Patient Position: Sitting Pulse: 73 Resp: 18 Temp: 35.7 ??C (96.2 ??F) SpO2: 95% Weight: 87.5 kg (193 lb) Height: 1.829 m (6') Body mass index is 26.18 kg/m??. Physical Exam Constitutional: General: He is not in acute distress. Appearance: Normal appearance. HENT: Head: Normocephalic and atraumatic. Right Ear: Tympanic membrane and ear canal normal. Left Ear: Tympanic membrane and ear canal normal. Nose: Nose normal. Mouth/Throat: Mouth: Mucous membranes are moist. Pharynx: Oropharynx is clear. No oropharyngeal exudate or posterior oropharyngeal erythema. Comments: Does wear an upper and lower plate of dentures Eyes: Extraocular Movements: Extraocular movements intact. Conjunctiva/sclera: Conjunctivae normal. Pupils: Pupils are equal, round, and reactive to light. Cardiovascular: Rate and Rhythm: Normal rate and regular rhythm. Pulses: Normal pulses. Heart sounds: Normal heart sounds. No murmur heard. Pulmonary: Breath sounds: Normal breath sounds. No wheezing, rhonchi or rales. Abdominal: General: Bowel sounds are normal. Palpations: Abdomen is soft. There is no mass. Tenderness: There is no abdominal tenderness. There is no guarding or rebound. Genitourinary: Prostate: Normal. Rectum: Normal. Guaiac result negative. Musculoskeletal: General: No swelling. Cervical back: Normal range of motion and neck supple. Skin: General: Skin is warm and dry. Comments: Callus with associated ulceration of her right first toe. Lipoma noted over left midabdomen lateral to the umbilicus Neurological: General: No focal deficit present. Mental Status: He is alert and oriented to person, place, and time. Cranial Nerves: No cranial nerve deficit. Motor: No weakness. Psychiatric: Mood and Affect: Mood normal. Behavior: Behavior normal. Thought Content: Thought content normal. Current Outpatient Medications: ??? atorvastatin (LIPITOR) 40 mg tablet, Take 40 mg by mouth daily, Disp: , Rfl: ??? ergocalciferol, vitamin D2, (VITAMIN D2 ORAL), Take 1,000 mcg by mouth daily, Disp: , Rfl: ??? insulin glargine,hum.rec.anlog (BASAGLAR KWIKPEN U-100 INSULIN) 100 unit/mL (3 mL) insulin pen, Inject 30 Units under the skin 2 (two) times a day, Disp: , Rfl: ??? JARDIANCE 10 mg tablet tablet, Take 10 mg by mouth daily, Disp: , Rfl: ??? lisinopriL (ZESTRIL) 5 mg tablet, Take 5 mg by mouth daily, Disp: , Rfl: ??? metFORMIN (GLUCOPHAGE) 1,000 mg tablet, Take 1,000 mg by mouth 2 (two) times a day, Disp: , Rfl: ??? multivitamin 400 mcg tablet, Take 1 tablet by mouth daily, Disp: , Rfl: ??? pantoprazole (PROTONIX) [address] tablet, Take 40 mg by mouth daily, Disp: , Rfl: ??? QUEtiapine (SEROquel) 100 mg tablet, Take 100 mg by mouth every evening, Disp: , Rfl: No visits with results within 2 Week(s) from this visit. Latest known visit with results is: Appointment on 08/27/2021 Component Date Value Ref Range Status ??? COVID-19 SARS CoV-2 RNA 08/27/2021 Not Detected Not Detected Final Comment: A Not Detected (negative) test result for this test means that SARS-CoV-2 RNA was not present in the specimen above the limit of detection. A negative result does not rule out the possibility of COVID-19 and should not be used as the sole basis for treatment or patient management decisions. If COVID-19 is still suspected, based on exposure history together with other clinical findings, re-testing should be considered in consultation with public health authorities. Laboratory test results should always be considered in the context of clinical observations and epidemiological data in making a final diagnosis and patient management decisions. Please review the Fact Sheets and FDA authorized labeling available for health care providers and patients using the following websites: https://www.[employer]/home/Covid-19/HCP/ [facility]/fact-sheet [email or web address]://[email or web address]/home/Covid-19/ Patients/QuestLDT/fact-sheet.html This test has been authorized by the FDA under an Emergency Use Authorization (EUA) for use by authorized laboratories. Due to the current public health emergency, [facility] is receiving a high volume of samples from a wide variety of swabs and media for COVID-19 testing. In order to serve patients during this public health crisis, samples from appropriate clinical sources are being tested. Negative test results derived from specimens received in non-commercially manufactured viral collection and transport media, or in media and sample collection kits not yet authorized by FDA for COVID-19 testing should be cautiously evaluated and the patient potentially subjected to extra precautions such as additional clinical monitoring, including collection of an additional specimen. Methodology: Nucleic Acid Amplification Test (NAAT) includes RT-PCR or TMA Additional information about COVID-19 can be found at the [facility] website: www.[email or web address]/Covid19 documented in this encounter Plan of Treatment Scheduled Referrals Name Type Priority Associated Order Schedule Diagnoses Ambulatory Referral Outpatient Referral Routine Type 2 diabete s Expected: to Podiatry mellitus with 11/05/2021, hyperglycemia, Expires: without long-term 11/05/2022 current use of insulin ([facility]) documented as of this encounter Results Albumin / creatinine urine ratio (02/06/2022 8:33 AM EDT) P athologist Signature Creatinine, 82.7 mg/dL 02/06/2022 [facility] Urine 12:51 PM EDT LAB Albumin, Urine 0.9 mg/dL 02/06/2022 [facility] 12:51 PM EDT LAB Alb/Creat Ratio 11 <=30 02/06/2022 [facility] mcg/mg 12:51 PM EDT LAB Comment: Albuminuria categories in CKD Category ?ACR (mcg/mg) ? Terms ??A1 ?<30 mcg/mg ? Nor mal to mildly increased ??A2 ?30-299 mcg/mg ?Mode rately increased* ??A3 ?>300 mcg/mg ?Sev erly increased *Relative to young adult level. Including nephrotic syndrome (albumin excretion ACR >2200 mcg/mg). Specimen Anatomical Collection Method Collection Time Receive d Time (Source) Location / / Volume Laterality Urine Urine specimen Non-blood 02/06/2022 8:33 AM 022 8:33 obtained by clean Collection / EDT AM EDT catch procedure / Unknown Unknown Avelino Jones DO LAB URINE ORDERABLES Performing Organization Address City/State/ZIP Code Phon e Number [facility] [address] [place] [address] Hepatitis C Antibody w/rfl Quant RNA, PCR w/rfl Genotype (02/06/2022 8:31 AM EDT) Patholo gist Method Time Signature Hepatitis C Nonreactive Nonreactive 02/09/2022 [facility] 12:26 PM HOSPITAL LAB EDT Comment: Hepatitis C Antibody was not detected. P atient is presumed not to be infected with Hepatitis C Virus. Specimen Anatomical Collection Method / Collection Time Recei mariya Time (Source) Location / Volume Laterality Blood Venous blood Venipuncture / 02/06/2022 8:31 02/06/2022 8:31 specimen / Unknown Unknown AM EDT AM EDT Avelino Delaney [facility] LAB BLOOD ORDERABLES Performing Organization Address [facility] Phon e Number [facility] [address] [address] PSA, Diagnostic (02/06/2022 8:31 AM EDT) P athologist Signature PSA 1.0 0.0 - 4.0 02/06/2022 [facility] ng/mL 12:37 PM EDT LAB Comment: A result within the reference range does not rule out malignancy. ??PSA may be elevated in both benign and in malignant conditions of the prostate. ??A diagnosis of malignancy should be based on cytolog ic and/or histologic criteria taking the entire clinical setting into account. Testing results may vary by laboratory, depending on the methodology and calibration used. The method performed at [facility] is based on the [employer] calibration. Therefore, it is necessary to use the same laboratory and methodol ogy when trending patient's sequential results. Specimen Anatomical Collection Method / Collection Time Recei mariya Time (Source) Location / Volume Laterality Blood Venous blood Venipuncture / 02/06/2022 8:31 02/06/2022 8:31 specimen / Unknown Unknown AM EDT AM EDT Avelino Delaney [facility] LAB BLOOD ORDERABLES Performing Organization Address [facility] Phon e Number [facility] [address] [place] [address] [phone] (ABNORMAL) Lipid panel (02/06/2022 8:31 AM EDT) Patholo gist Method Time Signature Triglycerides 85 0 - 150 02/06/2022 [facility] mg/dL 12:33 PM EDT LAB Total Cholesterol 115 0 - 200 02/06/2022 [facility] mg/dL 12:33 PM EDT LAB HDL-C 40 (L) >40 mg/dL 02/06/2022 [facility] 12:33 PM EDT LAB calculated LDL-C 58 <100 mg/dL 02/06/2022 [facility] 12:33 PM EDT LAB calculated 75 <130 mg/dL 02/06/2022 [facility] NON-HDL-C 12:33 PM EDT LAB Comment: Recommended Target Goals in general for Lipids (Based on the 2020 AACE/MARTHA Guidelines, 2018 ACC/NLA Guidelines, and 2019 ESC/EAS Guidelines): LDL-C <70 mg/dL and Non-HDL-C <100 mg/dL ??if any of the following: o ??Familial hypercholesterolemia o ??Diabetes Mellitus with at least 1 ri sk factor o ??10-year ASCVD (Atherosclerotic Cardi ovascular Disease) risk >20% o ??Chronic Kidney Disease Stage 3 or gr eater with albuminuria o ??Established clinical ASCVD (Atherosc lerotic Cardiovascular Disease) as defined by previous myocardial infarction (heart attack), unstable or stable angina, coronary revascularization, Percutaneous C oronary Intervention (stent), Coronary A rtery Bypass Graft (CABG or bypass), and other arterial revascularization procedures), stroke, TIA, or Peripheral Arterial Disease LDL-C <100 mg/dL and Non-HDL-C <130 mg/d L o ??2 or more risk factors AND 10-year A SCVD risk 10-20% o ??Diabetes Mellitus OR Chronic Kidney Disease Stage 3 or greater with no other risk factors o ??Greater than 2 risk factors AND 10-y ear ASCVD risk <10% Specimen Anatomical Collection Method / Collection Time Recei mariya Time (Source) Location / Volume Laterality Blood Venous blood Venipuncture / 02/06/2022 8:31 02/06/2022 8:31 specimen / Unknown Unknown AM EDT AM EDT Avelino Jones DO LAB BLOOD ORDERABLES Performing Organization Address City/State/ZIP Code Phon e Number [facility] [address] [place] [address] [phone] (ABNORMAL) Hemoglobin A1c (02/06/2022 8:31 AM EDT) athologist Signature Hemoglobin A1C 9.3 (H) <5.7 % 02/06/2022 [facility] 2:08 PM EDT LAB Comment: Normal ? <5.7% Abnormal, High ?5.7 - 6.4% Abnormal, Diagnostic for Diabetes ?> 6.5% Diabetes Care, 33(Suppl):S1-S61, 2010. T his borate affinity HbA1c method provides accurate analytical results in the presence of nearly all hemoglobin variants. HbF higher than 20% of the total Hb may y ield falsely low results. Conditions nemesio t shorten red cell survival, such as presence of unstable hemoglobins like Hb SS, Hb CC and Hb SC or other causes of hemolytic anemia may yield falsely low result s. Iron deficiency anemia may yield fals genie high results. ?? Performed at [facility], [address] [place] [address] Estimated average glucose 220 mg/dL 02/06/2022 2:0 8 PM EDT [facility] Comment: The estimated average glucose ( eAG) is derived from the equation [AG (mg/dL)= 28.7 x %HbA1c - 46.7] and provi ded as recommended by the [place] [employer]. Calculated eAG values less than 97 mg/dL or greater than 298 mg/dL may be unreliable and should be interpreted with caution. Estimated average glucose is educational and should not be used for c linical management of diabetic patients. Diabetes Care, 31(8):1757-4397. Specimen Anatomical Collection Method / Collection Time Recei mariya Time (Source) Location / Volume Laterality Blood Venous blood Venipuncture / 02/06/2022 8:31 02/06/2022 8:31 specimen / Unknown Unknown AM EDT AM EDT Avelino Jones DO LAB BLOOD ORDERABLES Performing Organization Address City/State/ZIP Code Phon e Number [facility] [address] [place] [address] [phone] (ABNORMAL) Comprehensive metabolic panel (02/06/2022 8:31 AM EDT) Analysis Performed At Patho logist Time Signature Glucose 247 (H) 70 - 99 02/06/2022 [facility] mg/dL 12:33 PM EDT LAB Sodium 139 135 - 145 02/06/2022 [facility] mmol/L 12:33 PM EDT LAB Potassium 4.7 3.5 - 5.3 02/06/2022 [facility] mmol/L 12:33 PM EDT LAB Chloride 103 98 - 107 02/06/2022 [facility] mmol/L 12:33 PM EDT LAB CO2 30 21 - 31 02/06/2022 [facility] mmol/L 12:33 PM EDT LAB Anion Gap 6 3 - 11 02/06/2022 [facility] mmol/L 12:33 PM EDT LAB BUN 16 7 - 25 02/06/2022 [facility] mg/dL 12:33 PM EDT LAB Creatinine 0.97 0.70 - 02/06/2022 [facility] 1.30 mg/dL 12:33 PM EDT LAB Calcium 9.4 8.6 - 10.3 02/06/2022 [facility] mg/dL 12:33 PM EDT LAB Total Protein 6.9 6.4 - 8.9 02/06/2022 [facility] gm/dL 12:33 PM EDT LAB Albumin 4.3 3.5 - 5.7 02/06/2022 [facility] gm/dL 12:33 PM EDT LAB Alkaline 106 (H) 34 - 104 02/06/2022 [facility] Phosphatase IU/L 12:33 PM EDT LAB AST 21 13 - 39 02/06/2022 [facility] IU/L 12:33 PM EDT LAB ALT (SGPT) 24 7 - 52 02/06/2022 [facility] IU/L 12:33 PM EDT LAB Total Bilirubin 0.4 0.3 - 1.0 02/06/2022 [facility] mg/dL 12:33 PM EDT LAB eGFR 81.6 >=60.0 02/06/2022 [facility] mL/min/1.7 12:33 PM EDT LAB 3m*2 Comment: Normal unless associated with e vidence of kidney damage. Specimen Anatomical Collection Method / Collection Time Recei mariya Time (Source) Location / Volume Laterality Blood Venous blood Venipuncture / 02/06/2022 8:31 02/06/2022 8:31 specimen / Unknown Unknown AM EDT AM EDT Avelino Jones DO LAB BLOOD ORDERABLES Performing Organization Address City/State/ZIP Code Phon e Number [facility] [address] [place] [address] documented in this encounter Visit Diagnoses Diagnosis Type 2 diabetes mellitus with hyperglyce roopa, without long-term current use of insulin ([facility]) - Primary Pure hypercholesterolemia Benign prostatic hyperplasia with noctur ia Gastroesophageal reflux disease without esophagitis Esophageal reflux Pulmonary nodules Other diseases of lung, not elsewhere cl assified Cigarette nicotine dependence without co mplication Screening for viral disease Special screening examination for unspec ified viral disease BMI 26.0-26.9,adult 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
--- OUTSIDE RECORDS SUMMARY | 2022-05-28 09:58 | XMS_ITS | Encounter Summary ---
:1955 [facility] [address] [facility] [address] Care Team Providers Name Role Phone Avelino Jones DO Primary Care Provider Reason for Visit Reason Onset Date Comments Medication Inquiry 05/04/2022 IBS Encounter Details Date Type Department Care Team Description 05/04/[address] [facility] Avelino Jones, [facility] Inquiry [facility] DO (IBS) [address] [place], [place] [phone] Social History Tobacco Use Types Packs/Day [...] place to sleep or slept in a jail (including now)? Sex Assigned at Date Recorded Not on file documented as of this encounter Miscellaneous Notes Telephone Encounter - Yohana Ash Customer Experience Specialist - 05/04/2022 4:47 PM EDT Made patient appt for tomorrow Telephone Encounter - Avelino Jones DO - 05/04/2022 4:43 PM EDT There is no documentation in the chart that the patient has a history of IBS. He will need to be seen in the office for evaluation before medication can be prescribed. Telephone Encounter - Maya Bueno - 05/04/2022 4:40 PM EDT Copied from [facility] #[id number]. Topic: Medication Inquiry >> May 04, 2022 4:36 PM Maya Bueno wrote: Pt's Aide called to advise pt has IBS and is inquiring if he can be prescribed dicyclomine to treat. Caller states pt's sxs are loose stools, cramping, indigestion, and moves his bowels severaltimes a day when he has an attack. Caller reports pt is in constant discomfort. Pharmacy: [facility] Zeus Sood. documented in this encounter Plan of Treatment Not on filedocumented as of this encounter Visit Diagnoses Not on filedocumented in this encounter Care Teams [employer] Grade Social Studies Teacher Relationship Specialty Start Date End Date Avelino Jones DO PCP - General Internal Medicine 11/05/21 [address] [facility] [place] [phone] documented as of this encounter
--- OUTSIDE RECORDS SUMMARY | 2022-05-28 09:58 | XMS_ITS | Encounter Summary ---
:1955 Author Organization [facility] Address [address] [facility] [place] [address] Care Team Providers Name Role Phone Avelino Jones DO Primary Care Provider Reason for Referral Radiology (Routine) - Closed Specialty Diagnoses / Procedures Referred By Contact Refer red To Contact Radiology Diagnoses Lipoma of torso Avelino Jones DO [facility] Us Procedures Ultrasound abdomen limited [address] [place] [address] [address] [place] [phone] Referral ID Status Reason Start Date Expiration Date Visits Requ ested Visits Authorized [id number] Closed 02/09/2022 08/08/2023 1 1 MRI/CAT/PET Scan (Routine) - Closed Specialty Diagnoses / Procedures Referred By Contact Refer red To Contact Radiology Diagnoses Right upper lobe pulmonary nodule Avelino Jones DO [facility] Ct Procedures CT chest without contrast [address] [facility] [place] [address] [place] [id number] Referral ID Status Reason Start Date Expiration Date Visits Requ ested Visits Authorized [id number] Closed 02/09/2022 08/08/2023 1 1 Reason for Visit Reason Comments Follow-up 3mo [facility] Encounter Details Date Type Department Care Team Description 02/09/2022 Office Visit [facility] Avelino Jones Type 2 diabetes mellitus with hyperglycemia, without long-term current use of insulin ([facility]) (Primary Dx); Medicine - Neto Delaney, Pure hypercholesterolemia; [address] Gastroesophageal reflux disease without esophagitis; [address] [place] Benign prostatic hyperplasia with nocturia; [place] [id number] Cigarette nicotine dependence without co mplication; [phone] Diabetic periph eral neuropathy ([facility]); (Work) Mild nonproliferative diabetic retinopat hy of left eye without macular edema associated with type 2 diabetes mellitus ([facility]); [phone] BMI 27.0-27.9,a dult; (Fax) Right upper lob e pulmonary nodule; Lipoma of torso ; Diabetic ulcer of toe of right foot associated with type 2 diabetes mellitus, limited to breakdown of skin ([facility]) Social History Tobacco Use Types Packs/Day Years [...] Sign Reading Time Taken Comments Blood Pressure 122/76 02/09/2022 11:22 AM EDT Pulse 74 02/09/2022 11:22 AM EDT Temperature - - Respiratory Rate 18 02/09/2022 11:22 AM EDT Oxygen Saturation 99% 02/09/2022 11:22 AM EDT Inhaled Oxygen Concentration - - Weight 90.3 kg (199 lb) 02/09/2022 11:22 AM EDT Height 182.9 cm (6') 02/09/2022 11:22 AM EDT Body Mass Index 26.99 02/09/2022 11:22 AM EDT documented in this encounter Patient Instructions Patient InstructionsAvelino Jones DO - 02/09/2022 11:00 AM EDT Follow a moderate low carb diet. Continue to follow well-balanced diet Limit concentrated sweets and drinks. Plate should be 50% vegetables, 25% protein and 25% carbohydrates. ?? Exercise on a daily basis. Walk 30 minutes per day or 15 minutes 2 times per day. Strengthening exercises 3 days per week. ?? Drink plenty of water. Diabetes Increase Jardiance to 25 mg daily Continue Basaglar 30 units at upper time Increase Basaglar to 34 units at breakfast Continue Metformin 1000 mg twice daily Hemoglobin A1c 9.3 on 02/06/2022 Last hemoglobin A1c was 8.2 Hemoglobin A1c goal is 7 or less We will adjust patient's medications pending A1c results in 3 months Diabetic foot exam with next appointment Patient have diabetic foot exam done through podiatry as well Continue to follow-up with ophthalmology on a regular basis due to diabetic retinopathy Continue to follow-up with podiatry on a regular basis due to diabetic peripheral neuropathy Hypercholesterolemia Continue atorvastatin 40 mg daily Continue to monitor cholesterol closely Attempt to maintain LDL to goal of less than 100 GERD Continue pantoprazole 40 mg daily Continue to avoid foods which may exacerbate reflux symptoms Limit caffeine nicotine alcohol and peppermint Limit acidic and spicy foods Lipoma Lipomatous mass left lower abdomen We will schedule a ultrasound of the abdomen to evaluate and confirm that this mass is a lipoma Pulmonary nodule Patient was scheduled for a CT scan of the chest to follow-up on a pulmonary nodule within the rightupper lung. CT chest 05/28/2020 demonstrated 3 mm nodule right upper lung Patient does have a longstanding history of tobacco use. Right first toe ulcer Patient continue to follow-up with podiatry for his toe ulcer MRI of the foot has been ordered by podiatry Continue wound care as per podiatry ?? Immunizations Patient has had his first 2 coronavirus vaccines Recommend third coronavirus vaccine Patient did get his flu shot August 2021 Prevnar 11/05/2021 Pneumovax in October 2022 Tdap 2018 Shingrix discussed with patient Advised patient discuss cost of Shingrix with his pharmacist ?? Preventive health Screening colonoscopy last done 2017 ? Medical history reviewed and updated Medication reviewed and updated Patient questions answered ?? Labs Advised patient get labs done 1 week prior to his next appointment A1c and CMP Advised patient to get labs done through [facility] lab ? Smoking cessation Patient states he is down to less than a half a pack a day every 2 days Encourage patient to continue to decrease his cigarette use per day Encourage patient to set a specific stop date for smoking cessation We will schedule a [facility] Medicare appointment with his next appointment documented in this encounter Progress Notes Avelino Jones DO - 02/09/2022 11:00 AM EDT Assessment/Plan Patient Instructions Follow a moderate low carb diet. Continue to follow well-balanced diet Limit concentrated sweets and drinks. Plate should be 50% vegetables, 25% protein and 25% carbohydrates. ?? Exercise on a daily basis. Walk 30 minutes per day or 15 minutes 2 times per day. Strengthening exercises 3 days per week. ?? Drink plenty of water. Diabetes Increase Jardiance to 25 mg daily Continue Basaglar 30 units at upper time Increase Basaglar to 34 units at breakfast Continue Metformin 1000 mg twice daily Hemoglobin A1c 9.3 on 02/06/2022 Last hemoglobin A1c was 8.2 Hemoglobin A1c goal is 7 or less We will adjust patient's medications pending A1c results in 3 months Diabetic foot exam with next appointment Patient have diabetic foot exam done through podiatry as well Continue to follow-up with ophthalmology on a regular basis due to diabetic retinopathy Continue to follow-up with podiatry on a regular basis due to diabetic peripheral neuropathy Hypercholesterolemia Continue atorvastatin 40 mg daily Continue to monitor cholesterol closely Attempt to maintain LDL to goal of less than 100 GERD Continue pantoprazole 40 mg daily Continue to avoid foods which may exacerbate reflux symptoms Limit caffeine nicotine alcohol and peppermint Limit acidic and spicy foods Lipoma Lipomatous mass left lower abdomen We will schedule a ultrasound of the abdomen to evaluate and confirm that this mass is a lipoma Pulmonary nodule Patient was scheduled for a CT scan of the chest to follow-up on a pulmonary nodule within the rightupper lung. CT chest 05/28/2020 demonstrated 3 mm nodule right upper lung Patient does have a longstanding history of tobacco use. Right first toe ulcer Patient continue to follow-up with podiatry for his toe ulcer MRI of the foot has been ordered by podiatry Continue wound care as per podiatry ?? Immunizations Patient has had his first 2 coronavirus vaccines Recommend third coronavirus vaccine Patient did get his flu shot August 2021 Prevnar 11/05/2021 Pneumovax in October 2022 Tdap 2018 Shingrix discussed with patient Advised patient discuss cost of Shingrix with his pharmacist ?? Preventive health Screening colonoscopy last done 2017 ? Medical history reviewed and updated Medication reviewed and updated Patient questions answered ?? Labs Advised patient get labs done 1 week prior to his next appointment A1c and CMP Advised patient to get labs done [facility] ? Smoking cessation Patient states he is down to less than a half a pack a day every 2 days Encourage patient to continue to decrease his cigarette use per day Encourage patient to set a specific stop date for smoking cessation We will schedule a welcome to Medicare appointment with his next appointment Diagnoses and all orders for this visit: Type 2 diabetes mellitus with hyperglycemia, without long-term current use of insulin ([facility]) - Comprehensive metabolic panel; Future - Hemoglobin A1c; Future Pure hypercholesterolemia Gastroesophageal reflux disease without esophagitis Benign prostatic hyperplasia with nocturia Cigarette nicotine dependence without complication Diabetic peripheral neuropathy ([facility]) 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 male. Diabetes. Present since 1992.. Came on gradually. [...] weight loss and inability to lose weight. ?? The patient states he does have diabetic peripheral neuropathy in both of his feet. Patient also history of diabetic retinopathy. Patient does follow-up with podiatry as well as ophthalmology. Abnormal CT scan. Patient had a CT scan of the chest on 05/28/2020 which demonstrated 3 mm right upperlung nodule. Patient does have a longstanding history of tobacco use. He states that this was not followed up. He will be scheduled for a repeat CT scan of the chest for further evaluation. Right first toe ulcer. Has a ulceration over his right first toe on the medial aspect which she is following with podiatry for. He states he stepped on a small screw about 2 years ago and since that time has had problems with recurrent ulcerations and nonhealing ulcer on his right first toe. He has had this area open on several occasions over the last 2 years. He is being followed by podiatry. He is scheduled for an MRI of the foot to evaluate for possible osteomyelitis. Lipoma. The patient has a lipomatous mass over his left lower abdomen. On examination the mass is rubbery consistent with a lipoma. He would like this to be further evaluated and we will schedule a ultrasound of the abdomen/soft tissue. Review of Systems Constitutional: Negative for activity change, appetite change, chills, fatigue, fever and unexpectedweight change. HENT: Negative for congestion, ear discharge, ear pain, nosebleeds, postnasal drip, rhinorrhea and sore throat. Eyes: Negative for discharge, redness and visual disturbance. Respiratory: Negative for cough, chest tightness, shortness of breath and wheezing. Cardiovascular: Negative for chest pain, palpitations and leg swelling. Gastrointestinal: Negative for abdominal pain, blood in stool, constipation and diarrhea. Endocrine: Negative for cold intolerance, heat intolerance, polydipsia, polyphagia and polyuria. Genitourinary: Negative for dysuria, frequency, hematuria and urgency. Musculoskeletal: Negative for arthralgias, back pain and neck pain. Skin: Negative for rash. Allergic/Immunologic: Negative for environmental allergies and food allergies. Neurological: Negative for dizziness, seizures, syncope and headaches. Neuropathy in both feet Psychiatric/Behavioral: Negative for decreased concentration, dysphoric mood and sleep disturbance. The patient is not nervous/anxious. Objective Vitals: 02/09/22 1122 BP: 122/76 BP Location: Left arm Patient Position: Sitting Pulse: 74 Resp: 18 SpO2: 99% Weight: 90.3 kg (199 lb) Height: 1.829 m (6') Body mass index is 26.99 kg/m??. Physical Exam Constitutional: Appearance: Normal appearance. Cardiovascular: Rate and Rhythm: Normal rate and regular rhythm. Pulses: Normal pulses. Heart sounds: Normal heart sounds. No murmur heard. Pulmonary: Effort: Pulmonary effort is normal. Breath sounds: Normal breath sounds. No wheezing, rhonchi or rales. Abdominal: General: Bowel sounds are normal. There is no distension. Palpations: Abdomen is soft. There is no mass. Tenderness: There is no abdominal tenderness. There is no guarding. Musculoskeletal: Cervical back: Normal range of motion and neck supple. Skin: General: Skin is warm and dry. Comments: Lipomatous mass left lower abdomen felt to be a benign lipoma. Right first medial toe. Demonstrates a ulceration with surrounding redness secondary to a chronic nonhealing diabetic ulcer. Neurological: General: No focal deficit present. Mental Status: He is alert and oriented to person, place, and time. Cranial Nerves: No cranial nerve deficit. Motor: No weakness. Psychiatric: Mood and Affect: Mood normal. Behavior: Behavior normal. Thought Content: Thought content normal. Current Outpatient Medications: ??? atorvastatin (LIPITOR) 40 mg tablet, Take 1 tablet (40 mg total) by mouth daily, Disp: 90 tablet, Rfl: 3 ??? ergocalciferol, vitamin D2, (VITAMIN D2 ORAL), Take 1,000 mcg by mouth daily, Disp: , Rfl: ??? insulin glargine,hum.rec.anlog (BASAGLAR KWIKPEN U-100 INSULIN) 100 unit/mL (3 mL) insulin pen, Inject 30 Units under the skin 2 (two) times a day Give 90 day supply, Disp: 15 pen, Rfl: 3 ??? lisinopriL (ZESTRIL) 5 mg tablet, Take 1 tablet (5 mg total) by mouth daily, Disp: 90 tablet, Rfl: 3 ??? metFORMIN (GLUCOPHAGE) 1,000 mg tablet, Take 1 tablet (1,000 mg total) by mouth 2 (two) times a day, Disp: 180 tablet, Rfl: 3 ??? multivitamin 400 mcg tablet, Take 1 tablet by mouth daily, Disp: , Rfl: ??? pantoprazole (PROTONIX) [address] tablet, Take 1 tablet (40 mg total) by mouth daily, Disp: 90 tablet, Rfl: 3 ??? QUEtiapine (SEROquel) 100 mg tablet, Take 1 tablet (100 mg total) by mouth every evening, Disp: 90 tablet, Rfl: 3 ??? empagliflozin (JARDIANCE) 25 mg tablet tablet, Take 1 tablet (25 mg total) by mouth daily, Disp:90 tablet, Rfl: 3 Appointment on 02/06/2022 Component Date Value Ref Range Status ??? Glucose 02/06/2022 247 (!) 70 - 99 mg/dL Final ??? Sodium 02/06/2022 139 135 - 145 mmol/L Final ??? Potassium 02/06/2022 4.7 3.5 - 5.3 mmol/L Final ??? Chloride 02/06/2022 103 98 - 107 mmol/L Final ??? CO2 02/06/2022 30 21 - 31 mmol/L Final ??? Anion Gap 02/06/2022 6 3 - 11 mmol/L Final ??? BUN 02/06/2022 16 7 - 25 mg/dL Final ??? Creatinine 02/06/2022 0.97 0.70 - 1.30 mg/dL Final ??? Calcium 02/06/2022 9.4 8.6 - 10.3 mg/dL Final ??? Total Protein 02/06/2022 6.9 6.4 - 8.9 gm/dL Final ??? Albumin 02/06/2022 4.3 3.5 - 5.7 gm/dL Final ??? Alkaline Phosphatase 02/06/2022 106 (!) 34 - 104 IU/L Final ??? AST 02/06/2022 21 13 - 39 IU/L Final ??? ALT (SGPT) 02/06/2022 24 7 - 52 IU/L Final ??? Total Bilirubin 02/06/2022 0.4 0.3 - 1.0 mg/dL Final ? ? eGFR 02/06/2022 81.6 >=60.0 mL/min/1.73m*2 Final Normal unless associated with evidence of kidney damage. ? ? Hemoglobin A1C 02/06/2022 9.3 (!) <5.7 % Final Normal <5.7% Abnormal, High 5.7 - 6.4% Abnormal, Diagnostic for Diabetes >6.5% Diabetes Care, 33(Suppl):S1-S61, 2010. This borate affinity HbA1c method provides accurate analytical results in the presence of nearly all hemoglobin variants. HbF higher than 20% of the total Hb may yield falsely low results. Conditions that shorten red cell survival, such as presence of unstable hem oglobins like Hb SS, Hb CC and Hb SC or other causes of hemolytic anemia may yield falsely low results. Iron deficiency anemia may yield falsely high results. Performed at [facility], [address] [place] [id number] ??? Estimated average glucose 02/06/2022 220 mg/dL Final The estimated average glucose (eAG) is derived from the equation [AG (mg/dL)= 28.7 x %HbA1c - 46.7]and provided as recommended by the [place] [employer]. Calculated eAG values less than 97mg/dL or greater than 298 mg/dL may be unreliable and should be interpreted with caution. Estimated average glucose is educational and should not be used for clinical management of diabetic patients. Diabetes Care, 31(8):1541-4417. ??? Triglycerides 02/06/2022 85 0 - 150 mg/dL Final ??? Total Cholesterol 02/06/2022 115 0 - 200 mg/dL Final ? ? HDL-C 02/06/2022 40 (!) >40 mg/dL Final ? ? calculated LDL-C 02/06/2022 58 <100 mg/dL Final ? ? calculated NON-HDL-C 02/06/2022 75 <130 mg/dL Final Comment: Recommended Target Goals in general for Lipids (Based on the 2020 AACE/MARTHA Guidelines, 2018 ACC/NLA Guidelines, and 2019 ESC/EAS Guidelines): LDL-C <70 mg/dL and Non-HDL-C <100 mg/dL if any of the following: o Familial hypercholesterolemia o Diabetes Mellitus with at least 1 risk factor o 10-year ASCVD (Atherosclerotic Cardiovascular Disease) risk >20% o Chronic Kidney Disease Stage 3 or greater with albuminuria o Established clinical ASCVD (Atherosclerotic Cardiovascular Disease) as defined by previous myocardial infarction (heart attack), unstable or stable angina, coronary revascularization, Percutaneous Coronary Intervention (stent), Coronary Artery Bypass Graft (CABG or bypass), and other arterial revascularization procedures), stroke, TIA, or Peripheral Arterial Disease LDL-C <100 mg/dL and Non-HDL-C <130 mg/dL o 2 or more risk factors AND 10-year ASCVD risk 10-20% o Diabetes Mellitus OR Chronic Kidney Disease Stage 3 or greater with no other risk factors o Greater than 2 risk factors AND 10-year ASCVD risk <10% ??? PSA 02/06/2022 1.0 0.0 - 4.0 ng/mL Final A result within the reference range does not rule out malignancy. PSA may be elevated in both benign and in malignant conditions of the prostate. A diagnosis of malignancy should be based on cytologicand/or histologic criteria taking the entire clinical setting into account. Testing results may vary by laboratory, depending on the methodology and calibration used. The method performed at [facility] is based on the [employer] calibration. Therefore, it is necessary to use the same laboratory and methodology when trending patient's sequential results. ??? Hepatitis C Ab 02/06/2022 Nonreactive Nonreactive Final Hepatitis C Antibody was not detected. Patient is presumed not to be infected with Hepatitis C Virus. ??? WBC 02/06/2022 6.4 4.0 - 11.0 K/mcL Final ??? RBC 02/06/2022 4.75 4.30 - 5.90 M/mcL Final ??? Hemoglobin 02/06/2022 14.6 13.0 - 17.3 g/dL Final ??? Hematocrit 02/06/2022 44.2 38.5 - 53.0 % Final ??? MCV 02/06/2022 93.1 83.0 - 99.0 fL Final ??? MCH 02/06/2022 30.7 27.0 - 33.0 pg Final ??? MCHC 02/06/2022 33.0 31.0 - 35.0 g/dL Final ??? Platelets 02/06/2022 244 140 - 400 K/mcL Final ??? MPV 02/06/2022 9.3 9.0 - 12.6 fL Final ??? RDW-SD 02/06/2022 43.7 37.0 - 53.1 fL Final ??? RDW-CV 02/06/2022 12.7 11.0 - 16.5 % Final ??? nRBC % 02/06/2022 0.0 0.0 - 0.0 % Final ? ? Absolute nRBC by Automated Count 02/06/2022 0.00 <1.00 K/mcL Final ??? Immature Granulocyte % 02/06/2022 0.5 % Final ??? Absolute Immature Granulocytes 02/06/2022 0.03 0.00 - 0.06 K/mcL Final ??? Neutrophils Absolute 02/06/2022 2.92 1.70 - 7.80 K/mcL Final ??? Lymphocytes Absolute 02/06/2022 2.65 1.00 - 4.80 K/mcL Final ??? Monocytes Absolute 02/06/2022 0.58 0.00 - 1.00 K/mcL Final ??? Eosinophils Absolute 02/06/2022 0.19 0.00 - 0.45 K/mcL Final ??? Basophils Absolute 02/06/2022 0.05 0.00 - 0.20 K/mcL Final ??? Neutrophils Relative 02/06/2022 45 % Final ??? Lymphocytes Relative 02/06/2022 41 % Final ??? Monocytes Relative 02/06/2022 9 % Final ??? Eosinophils Relative 02/06/2022 3 % Final ??? Basophils Relative 02/06/2022 1 % Final ??? Creatinine, Urine 02/06/2022 82.7 mg/dL Final ??? Albumin, Urine 02/06/2022 0.9 mg/dL Final ? ? Alb/Creat Ratio 02/06/2022 11 <=30 mcg/mg Final Albuminuria categories in CKD Category ACR (mcg/mg) Terms A1 <30 mcg/mg Normal to mildly increased A2 30-299 mcg/mg Moderately increased* A3 >300 mcg/mg Severly increased *Relative to young adult level. Including nephrotic syndrome (albumin excretion ACR >2200 mcg/mg). ??? Color, Urine 02/06/2022 Yellow Light Yellow, Yellow, Dark Yellow Final ??? Clarity, Urine 02/06/2022 Clear Clear Final ??? pH, Urine 02/06/2022 5.0 5.0 - 8.0 Final ??? Leukocytes Esterase, Urine 02/06/2022 Negative Negative Final ??? Nitrite, Urine 02/06/2022 Negative Negative Final ??? Protein, Urine 02/06/2022 Negative Negative Final ? ? Glucose, Urine 02/06/2022 >= 1000 mg/dL (!) Negative Final ??? Bilirubin, Urine 02/06/2022 Negative Negative Final ??? Specific [place], Urine 02/06/2022 1.034 (!) 1.005 - 1.030 Final ??? Ketones, Urine 02/06/2022 Negative Negative Final ? ? Urobilinogen, Urine 02/06/2022 0.2 <=1.0 EU/dL Final ??? Blood, Urine 02/06/2022 Negative Negative Final ??? Creatinine 02/06/2022 0.99 0.70 - 1.30 mg/dL Final ? ? eGFR 02/06/2022 79.6 >=60.0 mL/min/1.73m*2 Final Normal unless associated with evidence of kidney damage. documented in this encounter Plan of Treatment Scheduled Orders Name Type Priority Associated Diagnoses Order S chedule Comprehensive metabolic Lab Routine Type 2 diabetes E xpected: 02/09/2022 panel mellitus with (Approximate), hyperglycemia, without Expir es: 02/09/2023 long-term current use of insulin (CMS/[facility]) documented as of this encounter Results CT chest without contrast [...] left kidney. This report was created using [employer] software. Thank you for allowing us to [...] left kidney. This report was created using [employer] software. Thank you for allowing us to participate in the care of your patient. Avelino Jones DO IMG CT PROCEDURES Ultrasound abdomen limited (04/23/2022 7:40 [...] was identified. This report was created using [employer] software. Thank you for allowing us to [...] was identified. This report was created using [employer] software. Thank you for allowing us to participate in the care of your patient. Avelino Jones DO IMG US PROCEDURES documented in this encounter Visit Diagnoses Diagnosis Type 2 diabetes mellitus with hyperglyce roopa, without long-term current use of insulin (CMS/HCC) - Primary Pure hypercholesterolemia Gastroesophageal reflux disease without esophagitis Esophageal reflux Benign prostatic hyperplasia with noctur ia Cigarette nicotine dependence without co mplication Diabetic peripheral neuropathy (CMS/HCC) Type II or unspecified type diabetes miryam litus with neurological manifestations, not stated as uncontrolled Mild nonproliferative diabetic retinopat hy of left eye without macular edema associated with type 2 diabetes mellitus (CMS/HCC) BMI 27.0-27.9,adult Right upper lobe pulmonary nodule Lipoma of torso Diabetic ulcer of toe of right foot asso ciated with type 2 diabetes mellitus, limited to breakdown of skin (CMS/HCC) Lipoma of torso Right upper lobe pulmonary nodule documented in this encounter Care Teams It Technical Support Specialist Relationship Specialty Start Date End Date Avelino Jones DO PCP - General Internal Medicine 11/05/[address] [place] [address] [place] [phone] documented as of this encounter
--- OUTSIDE RECORDS SUMMARY | 2022-05-28 09:58 | XMS_ITS | Encounter Summary ---
:1955 Author Organization [employer] Address [address] [place] [address] Care Team Providers Name Role Phone Arti Rothman Primary Care Provider Reason for Visit Reason Onset Date Comments covid result 05/30/2021 Encounter Details Date Type Department Care Team Description 05/30/2021 Telephone [facility] Nurse Triage Call Nadya Betancourt RN covid result Center Social History Tobacco Use Types Packs/Day Years [...] place to sleep or slept in a nursing home (including now)? Sex Assigned at Date Recorded Not on file documented as of this encounter Miscellaneous Notes Telephone Encounter - Nadya Betancourt RN - 05/30/2021 10:15 AM EDT Patient was notified of NEGATIVE test results from test completed on 05/29/2021 Concerns expressed by the patient: Work note via [facility] portal Patient was informed of the following: (Select best option for patient's reason for testing) ??? Upcoming procedure - please follow the instructions already given to you. ??? No symptoms and no known close contact with someone who has COVID-19 - You can stop your self-quarantine ??? Symptoms but no known close contact - you may have another respiratory illness. Avoid work and group settings until three days after the last day of your respiratory symptoms and fever. ??? Close contact with someone who has COVID-19 - you should stay home for 14 days after your last contact with that person. You should check your temperature twice a day during this time. If you startto have a fever 100.4F (38C) or higher, cough, shortness of breath, or other symptoms of COVID-19, isolate yourself immediately and contact your physician or [facility]. ??? If you are fully vaccinated, you do not have to quarantine after a known exposure but should still monitor yourself for symptoms. An individual is considered fully vaccinated after 2 or more weeks of receiving the second dose in a 2-dose vaccine series, or the one dose of a single-dose vaccine. Ind ividuals who develop any symptoms of COVID-19, regardless of vaccination status, should be evaluatedby your physician. ??? If the person with COVID-19 lives in your home and you are not able to totally isolate from them, your last day of contact is their last day of isolation. This means you need to quarantine their full isolation time PLUS additional 14 days after they are no longer in isolation. ??? You can shorten the time of your quarantine to 10 days after your last contact with the person with COVID-19 if you do not have any symptoms of COVID- 19. You should continue to monitor for symptomsfor the full 14 days. It is very important that you wear a mask, wash your hands, avoid crowds, stay6 feet away from others during the additional 4 days. ??? If you have a COVID-19 test done 5 days or more after your last contact with the person with COVID-19, and the test is negative and you still do not have symptoms, you can stop quarantine after 7 days. You should continue to monitor for symptoms for the full 14 days. It is very important that you wear a mask, wash your hands, avoid crowds, stay 6 feet away from others during the additional 7 days. Notify PCP or use online urgent care if original symptoms worsen or new symptoms develop. documented in this encounter Plan of Treatment Not on filedocumented as of this encounter Visit Diagnoses Not on filedocumented in this encounter Care Teams Advertising Rep Relationship Specialty Start Date End Date Arti Rothman PA PCP - General 06/27/14 11/04/[address] [place] [phone] documented as of this encounter
--- OUTSIDE RECORDS SUMMARY | 2022-05-28 09:58 | XMS_ITS | Continuity of Care Document ---
:1955 External Reference #:[id number] Author Care Team Providers Name Role Phone Arti Rothman PA-C Care Team Information Transitions Rn Care Coordinator Unavail able MARIELA RENTERIA M.D. Care Team Information Transitions Rn Care Coordinator Unavaila ble Arti Rothman PA-C Primary Care [...]
--- OUTSIDE RECORDS SUMMARY | 2022-05-28 09:58 | XMS_ITS | Clinical Summary ---
:1955 Author Organization [facility] Address [address] [place] [address] Care Team Providers Name Role Phone Unavailable Primary Care Provider Unavailable Social History Tobacco Use Types Packs/Day Years Used Date Never Assessed Sex Assigned at Date Recorded Not on file Plan of Treatment Not on file
--- OUTSIDE RECORDS SUMMARY | 2022-05-28 09:58 | XMS_ITS | Encounter Summary ---
:1955 Author [facility] [address] [facility] [address] Care Team Providers Name Role Phone Avelino Jones DO Primary Care Provider Reason for Visit Reason Onset Date Comments med refill 03/12/2022 Encounter Details Date Type Department Care Team Description 03/12/2022 Telephone [facility] Internal Medicine - Avelino Stoddard, med refill [address] [place] [phone] [place] [phone] [phone] Social History Tobacco Use Types Packs/Day Years [...] this encounter Miscellaneous Notes Addendum Note - Bella Ash Med Asst - 03/12/2022 10:16 AM EDT Addended by: BELLA ASH on: 03/12/2022 10:16 AM Modules accepted: Orders Telephone Encounter - Bella Ash Med Asst - 03/12/2022 10:15 AM EDT Script sent to pharmacy Telephone Encounter - Shikha Wilson - 03/12/2022 10:09 AM EDT Pt's requesting item not on med list Test strips, freestyle lite Pt tests 3 times daily 90 day supply Refills: [facility] mail order pharmacy Thank you documented in this encounter Plan of Treatment Not on filedocumented as of this encounter Visit Diagnoses Not on filedocumented in this encounter Care Teams Uniform Cap Operator Relationship Specialty Start Date End Date Avelino Jones DO PCP - General Internal Medicine 11/05/21 [address] [facility] [place] [phone] documented as of this encounter
--- OUTSIDE RECORDS SUMMARY | 2022-05-28 09:58 | XMS_ITS | Encounter Summary ---
:1955 Author Organization [employer] Address [address] [place] [address] Care Team Providers Name Role Phone Arti Rothman Primary Care Provider Reason for Visit Reason Onset Date Comments suspect covid 05/29/2021 Encounter Details Date Type Department Care Team Description 05/29/2021 Telephone [facility] Nurse Triage Call Nadya Betancourt RN suspect covid Center Social History Tobacco Use Types Packs/Day [...] to sleep or slept in a senior living (including now)? Sex Assigned at Date Recorded Not on file documented as of this encounter Miscellaneous Notes Telephone Encounter - Nadya Betancourt RN - 05/29/2021 8:58 AM EDT Does the patient have current symptoms of illness? Yes Date symptoms started: 05/26/2021 1. Does the patient have a fever (subjective or confirmed)? Yes 2. Does the patient have a new onset of cough? Yes 3. Does the patient have a new onset of shortness of breath? No ?? If Yes: Is the patient having difficultly breathing or in distress? No 4. Additional symptoms: Fatigue, Muscle or body aches, Headaches, Congestion or runny nose and Nausea or vomiting Recommendations: Order placed for COVID testing. Patient reminded to self- quarantine until results are received. documented in this encounter Plan of Treatment Not on filedocumented as of this encounter Visit Diagnoses Diagnosis Suspected COVID-19 virus infection - [facility] documented in this encounter Additional Health Concerns Infection Onset Date Last Indicated Resolved Time Rule-Out SARS-CoV-2 (related to 05/29/2021 05/29/2021 05/29/2021 9:27 PM EDT COVID-19) documented as of this encounter Care Teams Trade Analyst Relationship Specialty Start Date End Date Arti Rothman PA PCP - General 06/27/14 11/04/[address] [place] [phone] documented as of this encounter
--- OUTSIDE RECORDS SUMMARY | 2022-05-28 09:58 | XMS_ITS | Encounter Summary ---
:1955 [facility] Address [address] [place] [address] Care Team Providers Name Role Phone Avelino Jones DO Primary Care Provider Encounter Details Date Type Department Care Team Description 04/24/2022 Telephone [facility] Internal Medicine - Alfredito Ireland LPN [address] [phone] Social History Tobacco Use Types Packs/Day [...] place to sleep or slept in a ch[facility] (including now)? Sex Assigned at Date Recorded Not on file documented as of this encounter Miscellaneous Notes Telephone Encounter - Rajni Ireland LPN - 04/24/2022 8:28 AM EDT LMOM Telephone Encounter - Rajni Ireland LPN - 04/24/2022 8:28 AM EDT ----- Message from Avelino Jones DO sent at 04/23/2022 3:30 PM EDT ----- Please let Yossi know that his ultrasound was unremarkable as well. There is no abnormalities identified by ultrasound. documented in this encounter Plan of Treatment Not on filedocumented as of this encounter Visit Diagnoses Not on filedocumented in this encounter Care Teams Station Chief Relationship Specialty Start Date End Date Avelino Jones DO PCP - General Internal Medicine 11/05/[address] [place] [address] [place] [phone] documented as of this encounter
--- OUTSIDE RECORDS SUMMARY | 2022-05-28 09:58 | XMS_ITS | Encounter Summary ---
:1955 Author [facility] Address [address] [place] [address] Care Team Providers Name Role Phone Avelino Jones DO Primary Care Provider Encounter Details Date Type Department Care Team Description 04/24/2022 Telephone [facility] Internal Medicine - Alfredito Ireland LPN [address] [phone] Social History Tobacco Use Types [...] place to sleep or slept in a prison (including now)? Sex Assigned at Date Recorded Not on file documented as of this encounter Miscellaneous Notes Telephone Encounter - Rajni Ireland LPN - 04/24/2022 8:28 AM EDT LMOM Telephone Encounter - Rajni Ireland LPN - 04/24/2022 8:28 AM EDT ----- Message from Avelino Jones DO sent at 04/23/2022 3:28 PM EDT ----- Please let Yossi know that his CT scan of the chest was normal documented in this encounter Plan of Treatment Not on filedocumented as of this encounter Visit Diagnoses Not on filedocumented in this encounter Care Teams Ring Conductor Relationship Specialty Start Date End Date Avelino Jones DO PCP - General Internal Medicine 11/05/21 [address] [facility] [place] [phone] documented as of this encounter
--- OUTSIDE RECORDS SUMMARY | 2022-05-28 09:58 | XMS_ITS | Encounter Summary ---
:1955 Author [facility] Address [address] [facility] [place] [address] Care Team Providers Name Role Phone Avelino Jones DO Primary Care Provider Encounter Details Date Type Department Care Team Description 12/04/2021 Orders Only [facility] Internal Medicine Aevlino [place] [address], [facility] [address] [facility] [address] [place] [address] [place] [phone] Social History Tobacco Use Types Packs/Day Years [...] place to sleep or slept in a fdc (including now)? Sex Assigned at Date Recorded Not on file documented as of this encounter Plan of Treatment Not on filedocumented as of this encounter Visit Diagnoses Not on filedocumented in this encounter Care Teams Pick Up Man Relationship Specialty Start Date End Date Avelino Jones, PCP - General Internal Medicine 11/05/[address] [place] [address] [place] [phone] documented as of this encounter
--- OUTSIDE RECORDS SUMMARY | 2022-05-28 09:58 | XMS_ITS | Encounter Summary ---
:1955 Author Organization [facility] Address [address] [place] [address] Care Team Providers Name Role Phone Avelino Jones DO Primary Care Provider Reason for Referral Radiology (Routine) - Closed Specialty Diagnoses / Procedures Referred By Contact Refer red To Contact Diagnoses Ocular ischemic syndrome Francisco Mahajan MD Procedures Ultrasound carotid bilateral [address] [place] [phone] Referral ID Status Reason Start Date Expiration Date Visits Requ ested Visits Authorized [id number] Closed 05/08/2022 11/04/2023 1 1 Reason for Visit Radiology (Routine) - Closed Specialty Diagnoses / Procedures Referred By Contact Refer red To Contact Diagnoses Ocular ischemic syndrome Francisoc Mahajan MD Procedures Ultrasound carotid bilateral [address] [place] [address] [phone] Referral ID Status Reason Start Date Expiration Date Visits Requ ested Visits Authorized [id number] Closed 05/08/2022 11/04/2023 1 1 Encounter Details Date Type Department Care Team Description 05/11/2022 Hospital Encounter [facility] Imaging Ocula r ischemic Services - [place] - [facility] [place] Ultrasound [address] [place] [address] [address] Social History Tobacco Use Types Packs/Day Years [...] (40 mg total) hypercholesterolemia by mouth daily dicyclomine (BENTYL) 10 mg Take 1 capsule 60 capsule 3 05/0507/04/2022 capsule (10 mg total) by mouth 2 (two) times a day before meals empagliflozin (JARDIANCE) 25 Take 1 tablet 90 tablet 3 02/2103/16/2023 mg tablet tablet (25 mg total) [...] reflux by mouth daily disease without esophagitis pen needle, diabetic 31 gauge Use to inject 2 100 each 11 0 05/11/2022 05/11/2023 x 5/16 needle times daily as directed. QUEtiapine (SEROquel) 100 mg Take 1 tablet 90 tablet 3 02/21 tablet (100 mg total) by mouth every evening documented as of this encounter Plan of Treatment Not on filedocumented as of this encounter Procedures Procedure Name Priority Date/Time Associated Diagnosis Comme [facility] CAROTID Routine 05/11/2022 10:03 AM Ocular ischemic Resul ts for this BILATERAL EDT syndrome procedure are i n the results section. documented in this encounter Results Ultrasound carotid bilateral (05/11/2022 10:03 AM EDT) Anatomical Region Laterality Modality Neck Bilateral Ultrasound Specimen (Source) Anatomical Location Collection Method / Collectio n Time Received Time / Laterality Volume Narrative 05/12/2022 8:39 PM EDT IMPRESSION: 1. Mild plaque burden without hemodynami hetal significant stenosis (less than 50%) of the RIGHT ca rotid artery by NASCET ([place] Symptomatic Carot id Endarterectomy Trial). 2. Mild plaque burden without hemodynami hetal significant stenosis (less than 50%) of the LEFT car otid artery by NASCET ([place] Symptomatic Carot id Endarterectomy Trial). PROCEDURE INFORMATION: [...] DOCUMENT HAS BEEN ELECTRONICALLY SI GNED BY HARPREET MCDOWELL MD Procedure Note Harpreet Mcdowell MD - 05/12/2022 IMPRESSION: 1. Mild plaque burden without hemodynami hetal significant stenosis (less than 50%) of the RIGHT ca rotid artery by NASCET ([place] Symptomatic Carot id Endarterectomy Trial). 2. Mild plaque burden without hemodynami hetal significant stenosis (less than 50%) of the LEFT car otid artery by NASCET ([place] Symptomatic Carot id Endarterectomy Trial). PROCEDURE INFORMATION: [...] DOCUMENT HAS BEEN ELECTRONICALLY SI GNED BY HARPREET MCDOWELL MD Francisco Mahajan MD [facility] PROCEDURES documented in this encounter Visit Diagnoses Diagnosis Ocular ischemic syndrome Retinal ischemia documented in this encounter Care Teams Acid Leveler Relationship Specialty Start Date End Date Avelino Jones DO PCP - General Internal Medicine 11/05/[address] [place] [address] [place] [phone] documented as of this encounter
--- OUTSIDE RECORDS SUMMARY | 2022-05-28 09:58 | XMS_ITS | Encounter Summary ---
:1955 [facility] [address] [facility] [address] Care Team Providers Name Role Phone Avelino Jones DO Primary Care Provider Reason for Visit Reason Onset Date Comments Med Question 03/30/2022 Encounter Details Date Type Department Care Team Description 03/30/2022 Telephone [facility] Internal Medicine - Avelino Stoddard, DO Med Question [place] [id number] [place] [address] [place] [phone] [phone] Social History Tobacco Use Types Packs/Day Years [...] place to sleep or slept in a snf (including now)? Sex Assigned at Date Recorded Not on file documented as of this encounter Miscellaneous Notes Telephone Encounter - Amy Khalil Attendant [facility] - 03/30/2022 12:27 PM EDT I called pt and I left VM relaying message. Telephone Encounter - vAelino Jones DO - 03/30/2022 11:46 AM EDT Patient is able to take coenzyme Q 10 with atorvastatin. I sometimes have patients take it as the atorvastatin class can sometimes cause some muscle achiness as it can deplete our coenzyme Q 10 levels.So there is no contraindication to taking coenzyme every 10. Telephone Encounter - Sumeet Soriano - 03/30/2022 10:58 AM EDT Copied from [facility] #[id number]. Topic: Medical Question >> March 30, 2022 10:38 AM Sumeet Soriano wrote: Pt's Aide bellaym. She states that the pt has been taking atorvastatin and would like to know if he is able to take CoQ10? Please advise. Thank you! documented in this encounter Plan of Treatment Not on filedocumented as of this encounter Visit Diagnoses Not on filedocumented in this encounter Care Teams Creping Machine Operator Helper Relationship Specialty Start Date End Date Avelino Jones DO PCP - General Internal Medicine 11/05/21 [address] [facility] [place] [phone] documented as of this encounter
--- OUTSIDE RECORDS SUMMARY | 2022-05-28 09:58 | XMS_ITS | Encounter Summary ---
:1955 Author Organization [facility] Address [address] [facility] [address] Care Team Providers Name Role Phone Avelino Jones DO Primary Care Provider Reason for Visit Reason Onset Date Comments Med Refill 05/11/2022 Encounter Details Date Type Department Care Team Description 05/11/2022 Telephone [facility] Internal Medicine - Avelino Stoddard, Med Refill [address] [place] [address] [place] [phone] Social History Tobacco Use Types Packs/Day Years [...] Miscellaneous Notes Telephone Encounter - Yohana Ash Med Asst - 05/12/2022 11:18 AM EDT It was sent to [facility] Telephone Encounter - Jyothi Tony - 05/12/2022 11:07 AM EDT Pt called back and stated the script was sent to the wrong pharmacy. Pt stated it is to go to [facility] Thank you! Telephone Encounter - Yohana Ash Tea And Spice Supervisor - 05/11/2022 9:42 AM EDT Sent in to [facility] Telephone Encounter - Anushka Rodas - 05/11/2022 8:31 AM EDT Zabrina, pt's is calling requesting a refill on the pt's pen needles for his insulin/diabetes Zabrina was unable to confirm name/dose Preferred Pharm: [facility] can be reached at [phone] Thank You! documented in this encounter Plan of Treatment Not on filedocumented as of this encounter Visit Diagnoses Not on filedocumented in this encounter Care Teams Security Assurance Specialist Relationship Specialty Start Date End Date Avelino Jones DO PCP - General Internal Medicine 11/05/[address] [place] [phone] documented as of this encounter
--- OUTSIDE RECORDS SUMMARY | 2022-05-28 09:58 | XMS_ITS | Encounter Summary ---
:1955 Author Organization [facility] Address [address] [place] [address] Care Team Providers Name Role Phone Arti Rothman Primary Care Provider Encounter Details Date Type Department Care Team Description 06/27/2014 Hospital Encounter [facility] - Kathryn Rothman [facility] [address] [place] [id number] Type II or [place] Historical [...] place to sleep or slept in a assisted (including now)? Sex Assigned at Date Recorded Not on file documented as of this encounter Plan of Treatment Not on filedocumented as of this encounter Procedures Procedure Name Priority Date/Time Associated Comments Diagnosis MICROALBUMIN/CREATININ Routine 06/27/2014 8:51 AM Results for this E RATIO HIS EDT procedure are i n the results section. LDL Routine 06/27/2014 8:51 AM Results f or this CHOLESTEROL,CALCULATED EDT proce dure are in the results section. EGFR NON- Routine 06/27/2014 8:51 AM Resul ts for this PRYDEINIG(PTH) EDT procedure are in the results section. EGFR Routine 06/27/2014 8:51 AM Results for this (PTH) EDT procedure are i n the results section. AUTOMATED DIFFERENTIAL Routine 06/27/2014 8:51 AM Results for this ONLY EDT procedure are i n the results section. CBC WITH AUTO Routine 06/27/2014 8:51 AM Results for this DIFFERENTIAL EDT procedure are i n the results section. URINALYSIS Routine 06/27/2014 8:51 AM Results f or this EDT procedure are i n the results section. TSH Routine 06/27/2014 8:51 AM Results f or this EDT procedure are i n the results section. T4, FREE Routine 06/27/2014 8:51 AM Results f or this EDT procedure are i n the results section. HEMOGLOBIN A1C Routine 06/27/2014 8:51 AM Results for this EDT procedure are i n the results section. LIPID PANEL Routine 06/27/2014 8:51 AM Results f or this EDT procedure are i n the results section. COMPREHENSIVE Routine 06/27/2014 8:51 AM Results for this METABOLIC PANEL EDT procedure ar e in the results section. documented in this encounter Results (ABNORMAL) MICROALBUMIN/CRETININE RATIO HIS (06/27/2014 8:51 AM EDT) Analysis Performed At Patho logist Time Signature Creatinine, Urine 77.63 mg/dL [facility] Ur Microalbumin 0.3 mg/dL [facility] Ur Malb/Crea 3.9 0.0 - 29.9 [facility] mcg/mg SYSTEM Specimen (Source) Anatomical Collection Method Collection Time Re ceived Time Location / / Volume Laterality 06/27/2014 8:51 AM EDT Arti MARTINEZ LAB HISTORICAL ORDERS Performing Organization Address City/State/ZIP Code Phon e Number [facility] [address] [place] [address], TSH (06/27/2014 8:51 AM EDT) P athologist Signature TSH 3.74 0.30 - 5.00 [facility] mcIU/mL SYSTEM Specimen (Source) Anatomical Collection Method Collection Time Re ceived Time Location / / Volume Laterality 06/27/2014 8:51 AM EDT Arti MARTINEZ LAB BLOOD ORDERABLES Performing Organization Address City/[facility]/ZIP Code Phon e Number [facility] [address] T4, free (06/27/2014 8:51 AM EDT) P athologist Signature Free T4 0.9 0.6 - 1.6 [facility] ng/dL SYSTEM Specimen (Source) Anatomical Collection Method Collection Time Re ceived Time Location / / Volume Laterality 06/27/2014 8:51 AM EDT Arti MARTINEZ LAB BLOOD ORDERABLES Performing Organization Address [facility] Code Phon e Number [facility] [address] LDL CHOLESTEROL,CALCULATED (06/27/2014 8:51 AM EDT) P athologist Signature LDL Calculated 119 mg/dL [facility] Comment: LDL Cholesterol Interpretation<70 mg/dL ?Optimal with existing coronary artery disease<100 mg/dL ? Optimal without coronary artery [id number] mg/dL ?Danita r optimal/above [id number] mg/dL ?Borderline [id number] mg/dL ? High>190 mg/dL ? Very high Specimen (Source) Anatomical Collection Method Collection Time Re ceived Time Location / / Volume Laterality 06/27/2014 8:51 AM EDT Arti MARTINEZ LAB HISTORICAL ORDERS Performing Organization Address [facility] Code Phon e Number [facility] [address] [place] [address], (ABNORMAL) Urinalysis (06/27/2014 8:51 AM EDT) Patholo gist Method Time Signature Clarity, Urine Clear Clear- [facility] Nitrite, Urine Negative Negative- [facility] Specific 1.010 1.005 - [facility] [place], Urine 1.030 LAB SYSTEM pH, Urine 5.0 5.0 - 8.0 [facility] U Source Unspecified [facility] Urine LAB [facility] Glucose, Urine 250 (A) Negative- [facility] mg/dL LAB SYSTEM Urobilinogen, 0.2 0.2- [facility] Urine EU/dL LAB SYSTEM Color, Urine Yellow Yellow- [facility] Bilirubin, Negative Negative- [facility] Urine LAB SYSTEM Blood, Urine Negative Negative- [facility] Protein, Urine Negative Negative- [facility] Ketones, Urine Negative Negative- [facility] Leukocytes Negative Negative- [facility] Esterase, LAB SYSTEM Urine Specimen (Source) Anatomical Collection Method Collection Time Re ceived Time Location / / Volume Laterality 06/27/2014 8:51 AM EDT Arti MARTINEZ LAB URINE ORDERABLES Performing Organization Address City/State/ZIP Code Phon e Number [facility] [address] [place] [id number], EGFR NON-(PTH) (06/27/2014 8:51 AM EDT) P athologist Signature eGFR >60 >=60- [facility] mL/min/1.73 SYSTEM m2 Comment: In the [...] <15, kidney failure. eGFR >60 >=60- mL/min/1.73m2 [facility] Comment: Result calculated by Discern Ex pert. Specimen (Source) Anatomical Collection Method Collection Time Re ceived Time Location / / Volume Laterality 06/27/2014 8:51 AM EDT Arti MARTINEZ LAB HISTORICAL ORDERS Performing Organization Address City/[facility]/ZIP Code Phon e Number [facility] [address] [place] [address], EGFR (PTH) (06/27/2014 8:51 AM EDT) P athologist Signature eGFR >60 >=60- [facility] mL/min/1.73 SYSTEM m2 Comment: Result calculated by Discern Ex pert. Specimen (Source) Anatomical Collection Method Collection Time Re ceived Time Location / / Volume Laterality 06/27/2014 8:51 AM EDT Arti MARTINEZ LAB HISTORICAL ORDERS Performing Organization Address [facility] Phon e Number [facility] [address] (ABNORMAL) Comprehensive metabolic panel (06/27/2014 8:51 AM EDT) Patholo gist Method Time Signature AST 16 13 - 39 [facility] IU/L SYSTEM ALT (SGPT) 19 7 - 52 [facility] IU/L SYSTEM Total Bilirubin 0.5 0.3 - 1.0 [facility] mg/dL SYSTEM Total Protein 6.8 6.4 - 8.9 [facility] gm/dL SYSTEM Albumin 4.4 3.5 - 5.7 [facility] gm/dL SYSTEM Potassium 4.5 3.5 - 5.3 [facility] mmol/L SYSTEM Anion Gap 3 3 - 11 [facility] mmol/L SYSTEM Creatinine 1.01 0.70 - [facility] 1.30 mg/dL SYSTEM Alkaline 95 34 - 104 [facility] Phosphatase IU/L SYSTEM Glucose Fasting 225 (H) 70 - 99 [facility] mg/dL SYSTEM Sodium 134 (L) 136 - 145 [facility] mmol/L SYSTEM Chloride 101 98 - 107 [facility] mmol/L SYSTEM CO2 30 21 - 31 [facility] mmol/L SYSTEM Calcium 9.4 8.6 - 10.3 [facility] mg/dL SYSTEM BUN 14 7 - 25 [facility] mg/dL SYSTEM Specimen (Source) Anatomical Collection Method Collection Time Re ceived Time Location / / Volume Laterality 06/27/2014 8:51 AM EDT Arti MARTINEZ LAB BLOOD ORDERABLES Performing Organization Address City/[facility]/ZIP Code Phon e Number [facility] [address] [place] [address], Automated Differential Only (06/27/2014 8:51 AM EDT) Analysis Performed At Patho logist Time Signature Absolute Immature 0.01 0.00 - [facility] Granulocytes 0.06 K/mcL SYSTEM Neutrophils 4.71 1.70 - [facility] Absolute 7.80 K/mcL SYSTEM Lymphocytes 2.44 1.00 - [facility] Absolute 4.80 K/mcL SYSTEM Eosinophils 1 % [facility] Relative SYSTEM Abs Eos Ct 0.11 0.00 - [facility] 0.45 K/mcL SYSTEM Monocytes 9 % [facility] Relative SYSTEM Immature 0.1 % [facility] Granulocyte % SYSTEM Basophils 0.02 0.00 - [facility] Absolute 0.20 K/mcL SYSTEM Basophils 0 % [facility] Relative SYSTEM Monocytes 0.75 0.00 - [facility] Absolute 1.00 K/mcL SYSTEM Lymphocytes 30 % [facility] Relative SYSTEM Neutrophils 59 % [facility] Relative SYSTEM Specimen (Source) Anatomical Collection Method Collection Time Re ceived Time Location / / Volume Laterality 06/27/2014 8:51 AM EDT Arti MARTINEZ LAB BLOOD ORDERABLES Performing Organization Address City/State/ZIP Code Phon e Number [facility] [address] [place] [address], (ABNORMAL) CBC auto differential (06/27/2014 8:51 AM EDT) P athologist Signature Platelets 187 140 - 400 [facility] K/mcL SYSTEM Hemoglobin 15.4 13.0 - [facility] 17.3 gm/dL SYSTEM Hematocrit 43.9 38.5 - [facility] 53.0 % SYSTEM MCV 90 83 - 99 fL [facility] MPV 10.3 9.0 - 12.6 [facility] fL SYSTEM WBC 8.0 4.0 - 11.0 [facility] K/mcL SYSTEM RBC 4.90 4.30 - [facility] 5.90 M/[facility] SYSTEM MCHC 35.1 (H) 31.0 - [facility] 35.0 gm/dL SYSTEM RDW-SD 40.4 37.0 - [facility] 53.1 fL SYSTEM MCH 31.4 27.0 - [facility] 33.0 pg SYSTEM RDW-CV 12.4 11.0 - [facility] 18.5 % SYSTEM Specimen (Source) Anatomical Collection Method Collection Time Re ceived Time Location / / Volume Laterality 06/27/2014 8:51 AM EDT Arti Valenzuela Lorna MARTINEZ LAB BLOOD ORDERABLES Performing Organization Address City/[facility]/ZIP Code Phon e Number [facility] [address] [place] [address] Lipid panel (06/27/2014 8:51 AM EDT) Patholo gist Method Time Signature Cholesterol 177 -<=199 [facility] mg/dL SYSTEM CHOL/HDL RATIO 4.32 2.00 - [facility] HISTORICAL 6.09 SYSTEM HDL Cholesterol 41 >=41- [facility] mg/dL SYSTEM Triglycerides 87 -<=149 [facility] mg/dL SYSTEM Specimen (Source) Anatomical Collection Method Collection Time Re ceived Time Location / / Volume Laterality 06/27/2014 8:51 AM EDT Arti Nicolas MARTINEZ LAB BLOOD ORDERABLES Performing Organization Address [facility] Phon e Number [facility] [address] [place] [address] (ABNORMAL) Hemoglobin A1c (06/27/2014 8:51 AM EDT) P athologist Signature Estimated 240 mg/dL [facility] average SYSTEM glucose Comment: eAG interpThe estimated average glucose (eAG) is derived from the equation [AG (mg/dL) = 28.7?? x %HbA1c ??46.7] and provided as recommended by the [place] [employer].?? Calculated eAG values less than 97 mg/dL or greater than 298 mg/dL may be unreliable and should be interpreted wit h caution.?? Estimated average glucose is educational and should not be used for clinical management of diabetic patients.Diabetes Care, 31(8):1473 ??1478. Hemoglobin A1C 10.0 (H) -<=5.6 % [facility] Comment: HbA1c interpNormal? <5.7%Abnormal, High? 5.7 ??6.4%Abnormal, Diagno stic for Diabetes? >6 .5%Diabetes Care, 33(Suppl):S1 ??S61, 2010.This borate affinity HbA1c method provides accurate analytical results in the presence of n early all hemoglobin variants.?? HbF higher than 20% of the total Hb may yield falsely low results.?? Conditions that shorten red cell survival, such as presence of unstable hemoglobins like Hb SS, Hb C C and Hb SC or other causes of hemolytic anemia may hebrew eld falsely low results.?? Iron deficiency anemia may yield falsely high results.Performed at [facility], [address] [place] [id number] Specimen (Source) Anatomical Collection Method Collection Time Re ceived Time Location / / Volume Laterality 06/27/2014 8:51 AM EDT Arti MARTINEZ LAB BLOOD ORDERABLES Performing Organization Address City/State/ZIP Code Phon e Number [facility] [address] [place] [address], documented in this encounter Visit Diagnoses Diagnosis Type II or unspecified type diabetes miryam litus without mention of complication, not stated as uncontrolled documented in this encounter Care Teams Box Office Manager Relationship Specialty Start Date End Date Arti Rothman PA PCP - General 06/27/14 11/04/[address] [place] [phone] documented as of this encounter
--- OUTSIDE RECORDS SUMMARY | 2022-05-28 10:00 | XMS_ITS | Continuity of Care Document ---
:1955 External Reference #:[id number] Author Care Team Providers Name Role Phone HENRY LOPEZ D.P.M. Care Team Information Emergency Medicine U Avelino Garcia D.O. Primary Care Physician Unavailable Problems Active Problems Provider Date Tibialis tendinitis Henry Lopez D.P.M. Onset: 05/2022 Long-term current use of oral eHnry Lopez D.P.M. O nset: 01/26/2022 hypoglycemic medication [...]
--- OUTSIDE RECORDS SUMMARY | 2022-05-28 10:00 | XMS_ITS ---
:1955 Author Care Team Providers Name Role Phone STONEY BEAR PA-C Primary Care Provider Unavailable Allergies Code Code System Name Reaction Severity Status Onset [id number] RxNorm Lyrica Other ? Active ? Medications Name Status Start Date Stop Date ? ? Accu-Chek Inna Plus test strips Active ? Not available TEST twice a day Accu-Chek Multiclix Lancet Active ? Not a vailable TEST twice a day TO CHECK SUGARS acetaminophen 300 mg-codeine 30 mg tablet Active ? Not available take 1 tablet by mouth every 4 hours if needed for pain aspirin 81 mg tablet,delayed release Active ? Not available take 1 tablet by mouth once daily BD Insulin Syringe Ult-Fine II 0.5 mL 31 gauge x 04/06 Active ? Not available use as directed cephalexin 500 mg capsule Unknown ? Not av ailable take 1 capsule three times a day clindamycin HCl 150 mg capsule Completed ? 0 01/01/2014 Take 2 capsules 3 times a day by oral route for 10 days. cyclobenzaprine 10 mg tablet Active ? Not available divalproex ER 250 mg tablet,extended release 24 hr Active ? Not available take 1 tablet by mouth once daily gabapentin 300 mg capsule Active ? Not av ailable take 1 capsule by mouth twice a day GaviLyte-N 420 gram oral solution Active ? Not available take as directed ibuprofen 800 mg tablet Active ? Not avai lable TAKE 1 TABLET EVERY 8 HOURS FOR 10 DAYS Lantus U-100 Insulin 100 unit/mL subcutaneous solution Active ? Not available inject 30 units subcutaneously once daily Lidocaine Viscous 2 % mucosal solution Unknown ? Not available GARGLE NOT SWALLOW 5 TO 10 ML EVERY 2 TO 4 HOURS FOR 7 DAYS FOR THROAT PAIN lisinopril 5 mg tablet Active ? Not avail able take 1 tablet by mouth once daily metformin 500 mg tablet Unknown ? Not avai lable take 1 tablet by mouth once daily with meals metformin ER 500 mg tablet,extended release 24 hr Active ? Not available take 2 tablets by mouth once daily metformin ER 500 mg tablet,extended release 24hr Unknown ? Not available Take 1 tablet every day by oral route. methylprednisolone 4 mg tablets in a dose pack Unknown ? Not available take as directed naproxen 250 mg tablet Active ? Not avail able take 1 tablet by mouth twice a day naproxen 500 mg tablet Unknown ? Not avail able Ventolin HFA 90 mcg/actuation aerosol inhaler Active ? Not available INSTILL 2 PUFFS 4 TIMES A DAY Problems Name Status Onset Date Source ? Diabetes Mellitus Active ? Encounter Toothache Unknown ? Encounter Neck Pain Active ? Encounter Plantar Fasciitis Active ? Encounter Procedures Date Name Performed by ? ? Knee Surgery Information not avai lable Notes: left knee 1979 ? Other Information not avai lable Notes: right shoulder 2010 Results Lab Results Date Name Specimen Result Interpretation Description Value Range Status Address ? 06/27/2014 Lipid BLOOD ? HDL 41 mg/dL >=41 Final [facility] Panel Cholesterol mg/dL [facility]): [address] [facility] ? ? BLOOD ? Triglyceride 87 mg/dL <=149 Final [facility] mg/dL Health [facility]): [address] [facility] ? ? BLOOD ? Cholesterol 177 mg/dL <=199 Final [facility] mg/dL Health [facility]): [address] [facility] ? ? BLOOD ? chol/HDL 4.32 2.00-6.09 Final [facility] Ratio Health [facility]): [address] [facility] 06/27/2014 Glycohemog BLOOD High Hgb a1C 10.0 % <=5.6 % [facility] [address] [facility] ? ? BLOOD ? Eag 240 mg/dL ? Final [facility]): [address] [facility] 06/27/2014 Thyroid BLOOD ? Tsh 3.74 0.30-5.00 Final [facility] Stimulatin mciu/mL mciu/mL Heal th g Hormone ([place] ([facility]): [address] [facility] 06/27/2014 T4 Free BLOOD ? Free T4 0.9 NG/dL 0.6-1.6 Final [facility] NG/dL Health [facility]): [address] [facility] 06/27/2014 Microalbum RANDOM ? Ur Creat 77.63 ? Final [facility] in/creatin URINE mg/dL Health ine Ratio ([facility]): [address] [facility] ? ? RANDOM ? Ur Malb/crea 3.9 0.0-29.9 Final [facility] URINE mcg/mg mcg/mg Health ([facility]): [address] [facility] ? ? RANDOM ? Ur 0.3 mg/dL ? Final [facility] URINE Microalbumin Heal th ([facility]): [address] [facility] 06/27/2014 LDL, Serum BLOOD ? LDL Chol 119 mg/dL ? Anton zaragoza [place] [facility] [facility] ([facility]): [address] [facility] 06/27/2014 Urinalysis URINE, ? U Blood negative negative Anton zaragoza [facility] UNSPECIFIE Health D SITE ([facility]): [address] [facility] ? ? URINE, ? Sp Grav 1.010 1.005-1.0 Final [place] garcia UNSPECIFIE Urine 30 Health D SITE ([facility]): [address] [facility] ? ? URINE, ? U Color yellow yellow Final [facility] UNSPECIFIE Health D SITE ([facility]): [address] [facility] ? ? URINE, ? U 0.2 eu/dL 0.2 eu/dL Final [facility] UNSPECIFIE Urobilinogen Health D SITE ([facility]): [address] [facility] ? ? URINE, ABNOR U Glucose 250 mg/dL negative Final [facility] UNSPECIFIE MAL mg/dL Health D SITE ([facility]): [address] [facility] ? ? URINE, ? U Nitrite negative negative Final [facility] UNSPECIFIE Health D SITE ([facility]): [address] [facility] ? ? URINE, ? U Ph 5.0 5.0-8.0 Final [facility] UNSPECIFIE Health D SITE ([facility]): [address] [facility] ? ? URINE, ? U Clarity clear clear Final [facility] UNSPECIFIE Health D SITE ([facility]): [address] [facility] ? ? URINE, ? U Bilirubin negative negative Final [facility] UNSPECIFIE Health D SITE ([facility]): [address] [facility] ? ? URINE, ? U Source unspecifi ? Final [facility] UNSPECIFIE ed site Healt h D SITE urine ([facility]): [address] [facility] ? ? URINE, ? U Ketones negative negative Final We [facility] UNSPECIFIE Health D SITE ([facility]): [address] [facility] ? ? URINE, ? U Leuk negative negative Final [place] [facility] UNSPECIFIE Esterase Heal th D SITE ([facility]): [address] [facility] ? ? URINE, ? U Protein negative negative Final We [facility] UNSPECIFIE Health D SITE ([facility]): [address] [facility] 06/27/2014 GFR, BLOOD ? eGFR If Non >60 >=60 Final [facility] Estimated -ameri mL/min/1. mL/min/1. Health (eGFR), can 73m2 73m2 ([facility]): [address] [facility] 06/27/2014 GFR, BLOOD ? eGFR If >60 >=60 Final [facility] Estimated -ameri mL/min/1. mL/min/1. Health (eGFR), can 73m2 73m2 ([facility]): ( [address] [place]) [facility] 06/27/2014 CMP, Serum BLOOD ? Anion Gap 3 mmol/L 3-11 Fin al [facility] or Plasma mmol/L Health ([facility]): [address] [facility] ? ? BLOOD ? Calcium 9.4 mg/dL 8.6-10.3 Final [facility] mg/dL Health ([facility]): [address] [facility] ? ? BLOOD ? Potassium 4.5 3.5-5.3 Final [place] mmol/L mmol/L Health ([facility]): [address] [facility] ? ? BLOOD ? Ast 16 IU/L 13-39 Final [facility] IU/L Health ([facility]): [address] [facility] ? ? BLOOD ? Bun 14 mg/dL 7-25 Final [facility] mg/dL Health ([facility]): [address] [facility] ? ? BLOOD ? Total 6.8 gm/dL 6.4-8.9 Final [facility] Protein gm/dL Health ([facility]): [address] [facility] ? ? BLOOD ? Alt 19 IU/L 7-52 IU/L Final [facility] ([facility]): [address] [facility] ? ? BLOOD ? Chloride 101 98-107 Final [facility] mmol/L mmol/L Health ([facility]): [address] [facility] ? ? BLOOD ? Creatinine 1.01 0.70-1.30 Final [facility] mg/dL mg/dL Health ([facility]): [address] [facility] ? ? BLOOD ? Albumin Lvl 4.4 gm/dL 3.5-5.7 Final [facility] gm/dL Health ([facility]): [address] [facility] [place] ? ? BLOOD ? Co2 30 mmol/L 21-31 Final [facility] mmol/L Health ([facility]): [address] [facility] [place] ? ? BLOOD ? Alk Phos 95 IU/L 34-104 Final [facility] IU/L Health ([facility]): [address] [facility] [place] ? ? BLOOD ? Total 0.5 mg/dL 0.3-1.0 Final [facility] Bilirubin mg/dL Health ([facility]): [address] [facility] [place] ? ? BLOOD High Glucose 225 mg/dL 70-99 Final [place] [facility] Fasting mg/dL Health ([facility]): [address] [facility] [place] ? ? BLOOD Low Sodium 134 136-145 Final [facility] mmol/L mmol/L Health ([facility]): [address] [facility] 06/27/2014 Auto Diff BLOOD ? Abs Baso CT 0.02 0.00-0.20 F inal [facility] K/mcL K/mcL Health ([facility]): [address] [facility] ? ? BLOOD ? Basophils 0 % ? Final [facility] ([facility]): [address] [facility] ? ? BLOOD ? Abs [place] CT 0.75 0.00-1.00 Final [facility] K/mcL K/mcL Health ([facility]): [address] [facility] [place] ? ? BLOOD ? Monocyte 9 % ? Final [facility] ([facility]): [address] [facility] ? ? BLOOD ? Abs Neut CT 4.71 1.70-7.80 Final [facility] K/mcL K/mcL Health ([facility]): [address] [facility] ? ? BLOOD ? Immature 0.1 % ? Final [facility] Gran Health ([facility]): [address] [facility] ? ? BLOOD ? Mature 59 % ? Final [facility] Neutrophils Healt h ([facility]): [address] [facility] [place] ? ? BLOOD ? Abs Eos 0.11 0.00-0.45 Final [place] K/mcL K/mcL Health ([facility]): [address] [facility] [place] ? ? BLOOD ? Abs Lymph CT 2.44 1.00-4.80 Final [facility] K/mcL K/mcL Health ([facility]): [address] [facility] [place] ? ? BLOOD ? Eosinophil 1 % ? Final [place] [facility] Health ([facility]): [address] [facility] [place] ? ? BLOOD ? Abs Immature 0.01 0.00-0.06 [address] [facility] Gran [address] K/mcL K/mcL Health ([facility]): [address] [facility], [place] ? ? BLOOD ? Lymphocytes 30 % ? Final [facility] span - Normal Health ([facility]): [address] [facility] [place] 06/27/2014 Cbc BLOOD ? Hct 43.9 % 38.5-53.0 Final [facility] lspan % Health ([facility]): [address] [facility] [place] ? ? BLOOD ? Platelet 187 K/mcL 140-400 Final [facility] lspan K/mcL Health ([facility]): [address] [facility] [place] ? ? BLOOD High Mchc 35.1 31.0-35.0 Final [facility] gm/dL gm/dL Health ([facility]): [address] [facility] [place] ? ? BLOOD ? RDW-CV 12.4 % 11.0-18.5 Final [place] % Health ([facility]): [address] [facility] [place] ? ? BLOOD ? RDW-SD 40.4 fL 37.0-53.1 Final [place]acia fL Health ([facility]): [address] [facility] [place] ? ? BLOOD ? Rbc 4.90 4.30-5.90 Final [facility] M/mcL M/mcL Health ([facility]): [address] [facility] [place] ? ? BLOOD ? Mch 31.4 pg 27.0-33.0 Final [place] pg Health ([facility]): [address] [facility], [place] ? ? BLOOD ? Wbc 8.0 K/mcL 4.0-11.0 Final [place] [facility] K/mcL Health ([facility]): [address] [facility] [place] ? ? BLOOD ? Mpv 10.3 fL 9.0-12.6 Final [facility] fL Health ([facility]): [address] [facility] [place] ? ? BLOOD ? Mcv 90 fL 83-99 fL Final [facility] ([facility]): [address] [facility] [place] ? ? BLOOD ? Hgb 15.4 13.0-17.3 Final [facility] gm/dL gm/dL Health ([facility]): [address] [facility] 12/21/2013 Lipid BLOOD ? HDL 52 mg/dL >=41 Final [facility] Panel Cholesterol mg/dL Healt h ([facility]): [address] [facility] ? ? BLOOD ? Triglyceride 68 mg/dL <=149 Final [facility] mg/dL Health ([facility]): [address] [facility] ? ? BLOOD ? Cholesterol 197 mg/dL <=199 Final [facility] mg/dL Health ([facility]): [address] [facility] ? ? BLOOD ? chol/HDL 3.79 2.00-6.09 Final [facility] Ratio Health ([facility]): [address] [facility] 12/21/2013 LDL, Serum BLOOD ? LDL Chol 131 mg/dL ? [facility] ([facility]): [address] [facility] 12/21/2013 Thyroid BLOOD ? Tsh 3.55 0.30-5.00 Final [facility] Stimulatin mciu/mL mciu/mL Heal th g Hormone ([place] (TSH) W/ Hospital ): Reflex T4 [address] Free [facility] 12/21/2013 Microalbum RANDOM ? Ur Malb/crea 3.2 0.0-29.9 Final [facility] in/creatin URINE mcg/mg mcg/mg Health ine Ratio ([facility]): [address] [facility] ? ? RANDOM ? Ur Creat 185.64 ? Final [facility] URINE mg/dL Health ([facility]): [address] [facility] ? ? RANDOM ? Ur 0.6 mg/dL ? Final [facility] URINE Microalbumin Heal th ([facility]): [address] [facility] 12/21/2013 +eGFR If BLOOD ? eGFR If Non >60 >=60 Final [facility] Non-keenan -ameri mL/min/1. mL/min/1. Health n [place]ese can 73m2 73m2 ([facility]): [address] [facility] 12/21/2013 +eGFR If BLOOD ? eGFR If >60 >=60 Final We llspan -ameri mL/min/1. mL/min/1. Health [place]ese can 73m2 73m2 ([facility]): [address] [facility] 12/21/2013 CMP, Serum BLOOD ? Alt 28 IU/L 7-52 IU/L Final [facility] or Plasma Health ([facility]): [address] [facility] [place] ? ? BLOOD ? Bun 14 mg/dL 7-25 Final [facility] mg/dL Health ([facility]): [address] [facility] [place] ? ? BLOOD ? Alk Phos 100 IU/L 34-104 Final [place] [facility] IU/L Health ([facility]): [address] [facility] [place] ? ? BLOOD ? Co2 31 mmol/L 21-31 Final [facility] mmol/L Health ([facility]): [address] [facility] [place] ? ? BLOOD ? Potassium 4.4 3.5-5.3 Final [place] g[place] mmol/L mmol/L Health ([facility]): [address] [facility] [place] ? ? BLOOD ? Total 6.9 gm/dL 6.4-8.9 Final [facility] Protein gm/dL Health ([facility]): [address] [facility] [place] ? ? BLOOD ? Total 0.6 mg/dL 0.3-1.0 Final [facility] Bilirubin mg/dL Health ([facility]): [address] [facility] [place] ? ? BLOOD ? Creatinine 0.87 0.70-1.30 Final We [facility] mg/dL mg/dL Health ([facility]): [address] [facility] [place] ? ? BLOOD ? Ast 19 IU/L 13-39 Final [facility] IU/L Health ([facility]): [address] [facility] [place] ? ? BLOOD ? Calcium 9.4 mg/dL 8.6-10.3 Final Wel [facility] mg/dL Health ([facility]): [address] [facility] [place] ? ? BLOOD ? Chloride 102 98-107 Final [facility] mmol/L mmol/L Health ([facility]): [address] [facility] [place] ? ? BLOOD ? Albumin Lvl 4.7 gm/dL 3.5-5.7 Final [facility] gm/dL Health ([facility]): [address] [facility] [place] ? ? BLOOD ? Anion Gap 5 mmol/L 3-11 Final [facility] mmol/L Health ([facility]): [address] [facility] [place] ? ? BLOOD ? Sodium 138 136-145 Final [facility] mmol/L mmol/L Health ([facility]): [address] [facility] [place] ? ? BLOOD High Glucose 133 mg/dL 70-99 Final [place] [facility] Fasting mg/dL Health ([facility]): [address] [facility] 12/21/2013 Auto Diff BLOOD ? Basophils 0 % ? Final [facility] ([facility]): [address] [facility] [place] ? ? BLOOD ? Abs [place] CT 0.61 0.00-1.00 Final [facility] K/mcL K/mcL Health ([facility]): [address] [facility] [place] ? ? BLOOD ? Monocyte 9 % ? Final [facility] ([facility]): [address] [facility] [place] ? ? BLOOD ? Abs Neut CT 3.03 1.70-7.80 Final [facility] K/mcL K/mcL Health ([facility]): [address] [facility] [place] ? ? BLOOD ? Immature 0.3 % ? Final [facility] Gran Health ([facility]): [address] [facility] [place] ? ? BLOOD ? Mature 44 % ? Final [facility] Neutrophils Healt h ([facility]): [address] [facility] [place] ? ? BLOOD ? Abs Eos 0.12 0.00-0.45 Final [place] K/mcL K/mcL Health ([facility]): [address] [facility] [place] ? ? BLOOD ? Eosinophil 2 % ? Final [place] garcia Health ([facility]): [address] [facility], [place] ? ? BLOOD ? Abs Lymph CT 3.00 1.00-4.80 Final [place] K/mcL K/mcL Health ([facility]): [address] [facility] [place] ? ? BLOOD ? Abs Immature 0.02 0.00-0.[address] [place] [address] K/mcL K/mcL Health ([facility]): [address] [facility] [place] ? ? BLOOD ? Lymphocytes 44 % ? Final [facility] span - Normal Health ([facility]): [address] [facility] [place] ? ? BLOOD ? Abs Baso CT 0.03 0.00-0.20 Final [facility] K/mcL K/mcL Health ([facility]): [address] [facility] [place] 12/21/2013 Cbc BLOOD ? Mcv 89 fL 83-99 fL Final [facility] span Health ([facility]): [address] [facility], [place] ? ? BLOOD ? Hgb 15.4 13.0-17.3 Final [facility] n gm/dL gm/dL Health ([facility]): [address] [facility] [place] ? ? BLOOD ? RDW-SD 39.4 fL 37.0-53.1 Final [place] garcia fL Health ([facility]): [address] [facility] [place] ? ? BLOOD ? Wbc 6.8 K/mcL 4.0-11.0 Final [place] K/mcL Health ([facility]): [address] [facility] [place] ? ? BLOOD ? Platelet 197 K/mcL 140-400 Final [facility] K/mcL Health ([facility]): [address] [facility] [place] ? ? BLOOD ? Mch 30.9 pg 27.0-33.0 Final [facility] pg Health ([facility]): [address] [facility] ? ? BLOOD ? RDW-CV 12.3 % 11.0-18.5 Final [facility] % Health ([facility]): [address] [facility] ? ? BLOOD ? Hct 44.5 % 38.5-53.0 Final [facility] % Health ([facility]): [address] [facility] ? ? BLOOD ? Rbc 4.99 4.30-5.90 Final [facility] M/mcL M/mcL Health ([facility]): [address] [facility] ? ? BLOOD ? Mpv 10.5 fL 9.0-12.6 Final [facility] fL Health ([facility]): [address] [facility] ? ? BLOOD ? Mchc 34.6 31.0-35.0 Final [facility] gm/dL gm/dL Health ([facility]): [address] [facility] ? Glucose, ? Blood 382 ? ? In-Offic e [place] Glucose: Orde r: k, Blood mg/dl Internal Use Only D O Not Attach Compendium DO Not Attach Compendium , Do Not Delete/sal g e ? Glucose, ? Blood 230 ? ? In-Offic e [place] Glucose: Orde r: k mg/dl Internal Use Only D O Not Attach Compendium DO Not Attach Compendium , Do Not Delete/sal g e ? Glucose, ? Blood 132 ? ? In-Offic e [place] Glucose: Orde r: k mg/dl Internal Use Only D O Not Attach Compendium DO Not Attach Compendium , Do Not Delete/sal g e Past Encounters None recorded. Social History Tobacco Smoking Status Light Tobacco Smoker (1 pack per week ) Vaccine List Vaccine Type influenza, seasonal, injectable 12/13/2013 influenza, unspecified formulation 12/14/2013?999 Plan of Care Reminders Provider Appointments None recorded. ? ? Lab None recorded. ? ? Referral None recorded. ? ? Procedures None recorded. ? ? Surgeries None recorded. ? ? Imaging None recorded. ? ? Vitals 07/27/2014 07:50AM 20 Chronic Height Weight BMI Blood Pressure 6 ft 0.5 in 201 lbs 1.6 oz 26.9 kg/m2 104/68 mm[Hg] 06/27/2014 07:50AM 20 Chronic Height Weight BMI Blood Pressure 6 ft 0.5 in 204 lbs 27.3 kg/m2 122/78 mm[Hg] 12/22/2013 04:20PM 15 Acute Height Weight BMI Blood Pressure 5 ft 11.5 in 216 lbs 3.2 oz 29.7 kg/m2 112/72 mm[Hg] 12/13/2013 03:30PM 20 New Patient Height Weight BMI Blood Pressure 5 ft 11.5 in 209 lbs 9.6 oz 28.8 kg/m2 120/80 mm[Hg]
--- NOTE | 2022-05-28 10:17 | ED.GENADUL_ITS ---
Discharge Plan Disposition Patient Disposition: HOME Condition: Stable Discharge Details Clinical Impression: Open toe wound Primary Care Provider: Aliyah,Local ED Provider: Johnson Menendez Home Meds and New Rx's Prescriptions: Continued atorvastatin 40 mg tablet 40 mg PO DAILY pantoprazole 40 mg tablet,delayed release (DR/EC) 40 mg PO DAILY doxycycline hyclate 100 mg tablet 100 mg PO BID Qty: 20 0RF metformin 1,000 mg Tablet 1,000 mg PO BID quetiapine 50 mg Tablet 50 mg PO QHS insulin glargine [Lantus Solostar U-100 Insulin] 100 unit/mL (3 mL) Insulin Pen 30 unit SUBCUT BID Discharge Instructions Instructions: Cellulitis (ED) Additional Instructions: MRI does not reveal any clear evidence of acute osteomyelitis. I would like you to rest, elevate, warm compresses every 2 hours for 20 minutes. Continue taking doxycycline as directed. Our radiologist recommends repeat MRI in a few days, please come back to the ER at 8:00 on WednesdayJune 01 as we do not have MRI capabilities over the weekend. Please watch for new or worsening symptoms and return sooner if necessary. I would like you to also contact the office of Dr. Borrero, our local pharmacology professor to see if they can evaluate you sooner than when you return home on June 11, otherwise I would also like you to contact your podiatry team in [place] to discuss your ER visit, ongoing symptoms, need for outpatient reevaluation as soon as you return home. Discharge Data Discharge Date/Time-TO BE ENTERED AT DEPARTURE: 05/28/22 14:39 Medical Decision Making 66-year-old gentleman visiting here from [place] and returning on the presents after an ER visit yesterday, now on doxycycline, and scheduled for an MRI. I spoke with our radiologist who recommends the MRI with and without contrast. Plan is to obtain IV access and obtain a BNP. Clinically the patient appears well, nontoxic, afebrile, no lymphangitic streaking. The MRI is not definitive for osteomyelitis and the radiologist recommends repeat MRI. Patient is already taking doxycycline. Plan is to have the patient return to the ER on Wednesday for repeat MRI as he does not have a PCP in the area and will be returning home to [place] on the . He does tell me that he has followed with Dr. Borrero in the past when this originally happened. He did call that office and unfortunately they are on vacation until Wednesday. He will also call the pharmacology professor on Wednesday to see if it is possible to be followed here prior to going home. In the meantime he will continue taking his doxycycline, I have recommended resting, elevation, warm compresses. He was encouraged to return to the ER sooner than Wednesday for new or evolving symptoms. Strict discharge and return precautions were provided. Patient understands, is agreeable to this plan, and has no additional questions or concerns upon discharge. This documentation was generated using [employer] system, please disregard any oddities of phrase or misspellings. Medical Records Medical records reviewed: Yes I reviewed the patient's medical records. Imaging Data Radiologic Study: Attestation: I personally reviewed and interpreted this imaging study as follows: Imaging: MRI Radiologist's impression: Exam(s) MR LOWER EXTREMITY RT WO/W EXAM: MR LOWER EXTREMITY RT WO/W CLINICAL HISTORY: foot/great toe infection, DM TECHNIQUE: Multiplanar multisequence MRI was performed both pre and post contrast infused sequences. Contrast use was 15 mL Dotarem COMPARISON: MR MR LOWER EXTREMITY RT WO/W from 02/26/2020 FINDINGS: SOFT TISSUES: Increased tissue edema seen in the distal soft tissues of the great toe. No foreign body evident. Generalized edema on the undersurface of the foot. No formed abscess evident. No tears of the flexor and extensor tendons and no evidence of tenosynovitis. MARROW: There is very mild increased signal within the distal phalanx of the great toe seen on STIR sequences. There is no confluent low signal in the bone evident on non fat sat T1 weighted sequences. No cortical disruption. No erosions. Following contrast injection there is very mild increased signal throughout the distal phalanx. No evidence of significant joint effusion in the interphalangeal joint of the great toe. Bipartite hallucal sesamoid. No abnormal signal in the sesamoids. IMPRESSION: 1. Mild diffuse signal abnormality and enhancement in the distal phalanx of the great toe but no confluent hypointense signal on non fat sat T1 weighted sequences (which would be more specific for osteomyelitis). 2. Recommend repeat MRI in a few days time 3. Soft tissue findings around the distal phalanx the great toe but no abscess. No tenosynovitis. No collateral ligament tears. Lab Data Lab results reviewed: Yes I reviewed the patient's lab results. Labs: Laboratory Tests Range/Units 05/28/22 10:50 Sodium (136-145) mmol/L 135 L Potassium (3.5-5.1) mmol/L 4.3 Chloride (98-107) mmol/L 103 Carbon Dioxide (21.0-32.0) mmol/L 24.2 Anion Gap (3-11) mmol/L 7.8 BUN (7-18) mg/dL 21 H Creatinine (0.70-1.30) mg/dL 1.0 Estimated GFR/1.73 m2 (mL/min/1.73m2) >= 60.00 Glucose (74-106) mg/dL 254 H Calcium (8.5-10.1) mg/dL 8.6 HPI General Mode of arrival: ambulatory . Date/Time Provider Initiated Documentation: 05/28/22 09:44 . Limitations to Documentation: no limitations . Information obtained by: patient . HPI Narrative: This is a 66-year-old gentleman who lives primarily in [place], past medical history of diabetes, presenting to the ER having been evaluated in the ER yesterday for recheck and MRI at 10 AM. He states that earlier in the week he developed a blood blister on his right great toe, subsequently became red and surrounding areas. He has been placed on doxycycline and 2 days ago had the blister drained. He is scheduled to return to [place] on the of this month. Patient states that in general he has had a chronic foot-toe wound for the past 2 years after stepping on a metal object, has been struggling she had this completely healed and is scheduled for debridement when he returns to [place]. Related Data Home Medications Medication Instructions Recorded Confirmed insulin glargine 100 unit/mL (3 30 unit subcut BID 02/26/20 05/28/22 mL) subcutaneous pen (Lantus Solostar U-100 Insulin) metformin 1,000 mg tablet 1,000 mg PO BID 02/26/20 05/28/22 quetiapine 50 mg tablet 50 mg PO QHS 02/26/20 05/28/22 atorvastatin 40 mg tablet 40 mg PO DAILY 05/26/22 05/28/22 doxycycline hyclate 100 mg tablet 100 mg PO BID #20 tabs 05/26/22 05/28/22 pantoprazole 40 mg tablet,delayed 40 mg PO DAILY 05/26/22 05/28/22 release Previous Rx's Medication Instructions Recorded doxycycline hyclate 100 mg tablet 100 mg PO BID #20 tabs 05/26/22 Allergies Allergy/AdvReac Type Severity Reaction Status Date / Time pregabalin [From Lyrica] AdvReac Mild feet swell Unverified 05/28/22 10:08 General Stated Complaint: Recheck ROBERTH: 4 Review of Systems Constitutional Constitutional: Denies fever(s) and Denies weakness Musculoskeletal Musculoskeletal: Denies arthralgias, Denies stiffness and Reports other (Baseline neuropathy) Integumentary/Breasts Skin/Breast: Reports erythema Neurologic Neurologic: Denies weakness PFSH All Active Problems Open toe wound (Acute) Medical History Diabetes Social History Smoking/Tobacco Use Status: Current every day Tobacco Type: cigarettes Smoking risk assessment performed?: Yes Alcohol Intake: current Alcohol Intake frequency: a few times a week Drug use: Never Substance use type: does not use Do you feel safe at home: Yes Do you feel safe in your relationship?: Yes Exam Const General: cooperative, healthy appearing, comfortable and no acute distress Orientation: alert, awake and oriented x3 HENMT Head: normal to inspection, normocephalic and atraumatic Eyes General: appearance normal, both eyes and all related structures Conjunctivae: conjunctivae normal Neck Neck: normal visual inspection, trachea midline and supple Resp Effort & Inspection: normal respiratory effort and able to speak in complete sentences Cardio Rate: regular rate Rhythm: regular rhythm Skin General skin exam: erythema Neuro General: patient alert, patient awake, patient oriented x3, moves all extremities and no focal motor deficits Cognition: normal cognition Speech: speech normal Gait: normal gait Motor: muscle tone normal throughout Sensory Exam: other (The patient reports baseline neuropathy deficits, u nchanged) Extrem General: capillary refill normal Other: Chronic appearing callus to plantar aspect of great toe. Dorsal aspect of great toe patient has denuded skin with exposed pink dermis approximate diameter 3 cm, some granulation tissue but no purulence or bleeding, fluctuance, or lymphangitic streaking. Tendon and vascular intact. Normal capillary refill. Baseline decreased sensation secondary to neuropathy. Psych Appearance: grossly normal Mental Status: mental status grossly normal Course Vital Signs Vital signs: Vital Signs Temperature 36.6 C 05/28/22 09:46 Pulse 79 05/28/22 09:46 Respiratory Rate 18 05/28/22 09:46 Blood Pressure 102/63 05/28/22 09:46 Pulse Oximetry 96 05/28/22 09:46 Temperature 36.6 C 05/28/22 09:46 Temperature Source Temporal Artery Scan 05/28/22 09:46 Pulse 79 05/28/22 09:46 Respiratory Rate 18 05/28/22 09:46 Respiratory Effort Non-Labored 05/28/22 09:49 Blood Pressure 102/63 05/28/22 09:46 Blood Pressure Position Sitting 05/28/22 09:46 Pulse Oximetry 96 05/28/22 09:46 Oxygen Delivery Method Room Air 05/28/22 09:46 Oxygen Flow Rate 0 05/28/22 09:46 PAWSS Have you Been Recently Intoxicated or Drunk Within the Last 30 days?: No Have you Ever Experienced Previous Episodes of Alcohol Withdrawal?: No Have you ever Experienced Withdrawal Seizures?: No Have you ever Experienced Delirium Tremens(DT)s?: No Have you ever undergone Alcohol Rehabilitation Treatment (i.e, inpt ot outpatient treatment programs)?: No Have you ever Experienced Blackouts?: No Have you ever Combined Alcohol with other Downers within the last 90 days?: No Have you ever Combined Alcohol with any other Substance of Abuse during the last 90 days?: No Positive Blood Alcohol level on Presentation? [PCS.BAL]: No Evidence of Increased Autonomic Activity (i.e. HR>120, tremor, sweating, agitation, nausea)?: No Result: 0
[2022-05-28 11:12] LABS: Anion Gap 7.8 mmol/L (3-11); BUN 21 mg/dL (7-18); CO2 24.2 mmol/L (21.0-32.0); Calcium 8.6 mg/dL (8.5-10.1); Chloride 103 mmol/L (98-107); Glucose 254 mg/dL (74-106); Potassium 4.3 mmol/L (3.5-5.1); Sodium 135 mmol/L (136-145)
[2022-05-28] MEDS: Normal Saline Flush 10 ML SYR IVP (12:58)
== END 2022-05-28 14:39 | disposition home or self-care (01) ==
PROVIDERS: Physician Assistant; Emergency Provider Physician Assistant
DX: S91.101A Unspecified open wound of right great toe without damage to nail, initial encounter (principal); X58.XXXA Exposure to other specified factors, initial encounter; E11.9 Type 2 diabetes mellitus without complications
CPT/HCPCS: 36415; 80048; 99283; 73720

== ENCOUNTER 2022-06-01 08:17 | Emergency (ER) | payer MEDICARE, OTHER, SELFPAY ==
[2022-06-01 08:21] VITALS: BP 106/65; PULSE 77; RESP 18; TEMP 36.6; O2SAT 98
--- NOTE | 2022-06-01 08:25 | DI.MRI_ITS ---
Exam(s) MR LOWER EXTREMITY RT WO/W EXAM: MR LOWER EXTREMITY RT WO/W CLINICAL HISTORY: ? osteomyelitis great toe TECHNIQUE: Multiplanar multisequence MRI was performed. Both pre and post contrast infused sequence s were also performed. Contrast use was 18 mL Dotarem. Compared to the recent MRI scan of 2. Similar field of view to the prior 05/28/2022 study was used. COMPARISON: MR MR LOWER EXTREMITY RT WO/W from 05/28/2022 FINDINGS: SOFT TISSUES: Skin defect/small focus of susceptibility artifact on the plantar medial aspect of the soft tissues of the distal phalanx noted. Possibly post interventional. There is subcutaneous edema a nd some enhancing soft tissue but no drainable fluid collection.. MARROW:There is no evidence of fracture, bone contusion, nor avascular necrosis. There are no signif icant osseous lesions. There is again noted mild increased signal in the distal phalanx of the great toe on the STIR fluid s ensitive sequence, unchanged from previous. However, there is also again noted preservation of normal T1 marrow signal at this level. There is also no significant abnormal intraosseous enhancement. No prominent joint effusion. LIGAMENTS AND TENDONS: Collateral ligaments are intact. The flexor and extensor tendons are intact wi th no tears or tenosynovitis. MUSCLES: There is no evidence of abnormal signal nor mass in the visualized muscles. IMPRESSION: 1. Minimal if any significant change when compared to the prior MRI scan of 05/28/2022. Findings agai n do not exhibit MRI criteria for osteomyelitis. 2. There is small focus of susceptibility artifact on the medial margin of the plantar surface of gre at toe, possibly post instrumentation. There is no drainable fluid collection. 3. No tendon tears nor tenosynovitis. DATA REPOSITORY:
--- NOTE | 2022-06-01 08:33 | W.ED.GENAD ---
Discharge Plan Disposition Patient Disposition: HOME Condition: Good Discharge Details Clinical Impression: Open toe wound Primary Care Provider: Aliyah,Local ED Provider: Felicitas Wakefield Home Meds and New Rx's Prescriptions: Continued atorvastatin 40 mg tablet 40 mg PO DAILY pantoprazole 40 mg tablet,delayed release (DR/EC) 40 mg PO DAILY doxycycline hyclate 100 mg tablet 100 mg PO BID Qty: 20 0RF metformin 1,000 mg Tablet 1,000 mg PO BID quetiapine 50 mg Tablet 50 mg PO QHS insulin glargine [Lantus Solostar U-100 Insulin] 100 unit/mL (3 mL) Insulin Pen 30 unit SUBCUT BID lisinopril 5 mg tablet 5 tab PO DAILY Discharge Instructions Instructions: Puncture Wound in the Foot (ED) Additional Instructions: Your imaging did not show evidence of osteomyelitis today. Your laboratory evaluation was reassuring with only slight elevation of one of your inflammatory markers. I would like you to continue with your antibiotics as previously prescribed. Please continue the entire course even if symptoms improve. Please encourage hydration. Please continue to elevate and rest the extremity. Please do wound checks and foot checks daily monitor for other or changing wounds. You may use the postoperative shoe to help support the foot and allow for healing. I have rescheduled your appointment with Dr. Mcclain for this at 11:15 AM. If in the interim you develop fever/chills increased pain or other new/worsening symptoms please seek care urgently once again. Referrals: Nayan Borrero DPM [[facility] STAFF PHYSICIAN] - Discharge Data Discharge Date/Time-TO BE ENTERED AT DEPARTURE: 06/01/22 15:02 Medical Decision Making Patient is a pleasant 66 year old male presening for f/u of right foot wound. Patient reports chronic wound associated with puncture wound he sustained about 2 years ago. Since then has had difficulty with wound helaing and intermittent infection. He was seen here twice recently, has also been seen at urgent care. When he was here last MRI was obtain for possible osteomyelitis. He was advised to come back here for reimaging as this was indeterminate. He has been taking his Doxycycline as prescribed. Feels that overall the erythema and discomfort is improving. No fevers/chills. Had wound debrided in the interum by urgent healthcare consulting manager. Hx of DM with peripheral neuropathy. On exam, patient appears nontoxic. He is afebrile with stable VS. Exam of the RLE signficant for mild erythema along the dorsal aspect of the right great toee. He has chronic appearing callous and more fresh superficial wound. The area of opening is consistent with recent debridement. Erythema around this, no drainage, no warmth. Tender to palpation. Despite his chronic decreased sensation, his light touch is intact at this time. 2+ disatl pulses, intact capillary refill. No other area of wound. No pain with palpation elsewhere about hte foot/ankle. Calf is soft and nontender. Will obtain repeat MRI as was recommended. As there is concern for osteomyelitis, will obtain labs as well including ESR, CRP for further evaluation. Ayaka had been scheduled to f/u with Dr. Borrero, will reach out to clinic after the MRI has been completed. Labs reviewed. No leukocytosis. CRP minimally elevated, ESR WNL. Contacted by radiologist, no acute osteomyelitis. Discussed with patient. Advised that his abx appear to be working. Advised that he continue along this course as he continues to have moree erythema and discomfort. Advised that remaining infection is most consistent with superficial infection. Encouraged hydration. Advised on return precautions. Called and was able to get patient f/u with podiatry this week. Also advised on continued wound care. Advised to preform daily foot checks. HPI General Date/Time Provider Initiated Documentation: 06/01/22 08:21. Limitations to Documentation: no limitations. Information obtained by: patient, RN notes reviewed and old records reviewed. History of Present Illness 66 year old M presents to the emergency department with the chief complaint of right great toe pain, described as moderate, Quality is described as aching, and is localized to the right and lower extremity. Patient reports no radiation. Patient started experiencing this year(s) (2) and it has been constant. Immobilization improves symptom(s), Movement worsens symptoms . Patient notes rash; denies diaphoresis, fever/chills, malaise and shortness of breath. Patient did receive the following treatments prior to arrival, none Related Data Home Medications Medication Instructions Recorded Confirmed insulin glargine 100 unit/mL (3 30 unit subcut BID 02/26/20 06/01/22 mL) subcutaneous pen (Lantus Solostar U-100 Insulin) metformin 1,000 mg tablet 1,000 mg PO BID 02/26/20 06/01/22 quetiapine 50 mg tablet 50 mg PO QHS 02/26/20 06/01/22 atorvastatin 40 mg tablet 40 mg PO DAILY 05/26/22 06/01/22 doxycycline hyclate 100 mg tablet 100 mg PO BID #20 tabs 05/26/22 06/01/22 pantoprazole 40 mg tablet,delayed 40 mg PO DAILY 05/26/22 06/01/22 release lisinopril 5 mg tablet 5 tab PO DAILY 06/01/22 06/01/22 Previous Rx's Medication Instructions Recorded doxycycline hyclate 100 mg tablet 100 mg PO BID #20 tabs 05/26/22 Allergies Allergy/AdvReac Type Severity Reaction Status Date / Time pregabalin [From Lyrica] AdvReac Mild feet swell Unverified 06/01/22 08:24 General Stated Complaint: Recheck ROBERTH: 3 Review of Systems Constitutional Constitutional: Reports as per HPI, Denies chills and Denies fever(s) Musculoskeletal Musculoskeletal: Reports as per HPI Integumentary/Breasts Skin/Breast: Reports as per HPI Neurologic Neurologic: Reports as per HPI and Reports sensory deficit (chronic BLE deeficit, no recent change) PFSH All Active Problems (Updated 06/01/22 @ 14:14 by MICHELLE Mancuso) Open toe wound (Acute) Medical History Diabetes Social History Smoking/Tobacco Use Status: Current every day Tobacco Type: cigarettes Smoking risk assessment performed?: Yes Alcohol Intake: current Alcohol Intake frequency: a few times a week Drug use: Never Substance use type: does not use Do you feel safe at home: Yes Do you feel safe in your relationship?: Yes Exam Const General: cooperative, healthy appearing, comfortable, no acute distress and well developed Nutritional Appearance: average body habitus and well nourished Orientation: alert and awake Resp Effort & Inspection: normal respiratory effort, able to speak in complete sentences and no respiratory distress Cardio Rate: regular rate Rhythm: regular rhythm Skin General skin exam: erythema and other (chronic callous) Neuro General: patient alert and patient awake Cognition: normal cognition Speech: speech normal Gait: normal gait Sensory Exam: no sensory deficits noted Extrem Ankle/foot/toe images: 1. Patient has callous along dorsal side of the base of the great toe and extends laterally. Dorsal aspect has raw appearing area with loss of superficial tissue. No deep structures able to be visualized. Mild surrounding erythema with no warmth or drainage. Tender to this area and extending just proximal. Intact ROM. Sensattion intact to light touch Psych Appearance: grossly normal and well kempt Mental Status: mental status grossly normal Speech and Movement: speech and movement normal Course Vital Signs Vital signs: Vital Signs Temperature 36.6 C 06/01/22 08:21 Pulse 77 06/01/22 08:21 Respiratory Rate 18 06/01/22 08:21 Blood Pressure 106/65 06/01/22 08:21 Pulse Oximetry 98 06/01/22 08:21 Temperature 36.6 C 06/01/22 08:21 Temperature Source Temporal Artery Scan 06/01/22 08:21 Pulse 77 06/01/22 08:21 Respiratory Rate 18 06/01/22 08:21 Respiratory Effort Non-Labored 06/01/22 08:25 Blood Pressure 106/65 06/01/22 08:21 Pulse Oximetry 98 06/01/22 08:21 Oxygen Delivery Method Room Air 06/01/22 08:21 Oxygen Flow Rate 0 06/01/22 08:21
[2022-06-01 10:05] LABS: Abs Immature Grans 0.03 10^3/uL (0.0-0.06); Absolute Basophil Count 0.05 10^3/uL (0.0-0.2); Absolute Eosinophil Count 0.19 10^3/uL (0.0-0.7); Absolute Lymphocyte Count 2.53 10^3/uL (1.2-3.4); Absolute Monocyte Count 0.66 10^3/uL (0.1-0.8); Basophils % 0.7; Eosinophils % 2.8; HCT 45.3 % (40.0-50.0); HGB 15.2 g/dL (13.5-17.5); Immature Grans % 0.4; Lymphocytes % 37.4; MCH 30.2 pg (27.0-33.0); MCHC 33.6 % (32.0-36.0); MCV 90 fL (80-95); MPV 9.7 fL (8.0-11.0); Monocytes % 9.8; Neutrophils % 48.9; Platelet Count 247 10^3/uL (130-400); RBC 5.03 10^6/uL (4.36-5.78); RDW 12.5 % (11.8-14.1); RDW-SD 41.2 fL; WBC 6.76 10^3/uL (4.4-10.8)
[2022-06-01 10:07] LABS: ESR 20 mm/hr (0-20)
[2022-06-01 10:20] LABS: ALT 23 U/L (16-63); AST 16 U/L (15-37); Albumin 3.7 g/dL (3.4-5.0); Alkaline Phosphatase 121 U/L (46-116); Anion Gap 9.6 mmol/L (3-11); BUN 18 mg/dL (7-18); Bilirubin, Total 0.3 mg/dL (0.2-1.0); C-Reactive Protein 0.38 mg/dL (0.0-0.3); CO2 25.4 mmol/L (21.0-32.0); CREATININE 1.1 mg/dL (0.70-1.30); Calcium 9.1 mg/dL (8.5-10.1); Chloride 103 mmol/L (98-107); Glucose 187 mg/dL (74-106); Potassium 4.1 mmol/L (3.5-5.1); Sodium 138 mmol/L (136-145); Total Protein 7.3 g/dL (6.4-8.2)
[2022-06-01] MEDS: Gadoterate meglumine 20 ML SYRINGE 18 ML IVP (11:54)
[2022-06-01] MEDS: Normal Saline Flush 10 ML SYR IVP (11:54)
[2022-06-01 13:12] VITALS: BP 107/74; PULSE 85; TEMP 36.6; O2SAT 94
--- NOTE | 2022-06-01 13:34 | DI.VRAD_ITS ---
PROCEDURE INFORMATION: Exam: MR Right Lower Extremity Without and With Contrast; Forefoot Exam date and time: 06/01/2022 11:31 AM Age: 66 years old Clinical indication: Other: ? Osteomyelitis great toe TECHNIQUE: Imaging protocol: MR of the Right foot without and with contrast. Exam focused on the forefoot. Contrast material: DOTAREM; Contrast volume: 18 ml; Contrast route: INTRAVENOUS (IV); COMPARISON: MR LOWER EXTREMITY RT WO/W 05/28/2022 11:20 AM FINDINGS: Bones and cartilage: Minimally increased signal on fluid sensitive sequence within the distal phalanx of the great toe, 401-15, similar to prior. Preservation of normal T1 marrow signal hyperintensity throughout the great toe and other included osseous structures. No concerning abnormal enhancement. Bipartite hallucal sesamoid. Joint spaces: No concerning finding. No joint effusion. LIGAMENTS: Collateral ligaments of digits: Unremarkable. No evidence of tear. TENDONS: Flexor tendons of foot: No detectable significant abnormality. Extensor tendons of foot: No detectable significant abnormality. Soft tissues: Small focus of susceptibility artifact at the medial margin of the plantar surface of the great toe, 501-10, 401-20; very mild adjacent subcutaneous edema is likely. No drainable collection. IMPRESSION: 1. Findings are not concerning for osteomyelitis of the great toe. If persistent clinical concern, advise surveillance. 2. New small focus of susceptibility artifact at the medial margin of the plantar surface of the great toe, may be post interventional or artifactual. No drainable collection. Dictated and Authenticated by: Nina Shetty MD. Ordering:JUDITH Polk MD
== END 2022-06-01 15:02 | disposition home or self-care (01) ==
PROVIDERS: Emergency Provider Physician Assistant
DX: S91.101A Unspecified open wound of right great toe without damage to nail, initial encounter (principal); L84 Corns and callosities; E11.42 Type 2 diabetes mellitus with diabetic polyneuropathy; R79.82 Elevated C-reactive protein (CRP); F17.210 Nicotine dependence, cigarettes, uncomplicated; Z79.4 Long term (current) use of insulin; Z79.84 Long term (current) use of oral hypoglycemic drugs; X58.XXXA Exposure to other specified factors, initial encounter
CPT/HCPCS: 80053; 85652; 99285; 73720; 85025; 86140; 99284

== ENCOUNTER 2025-08-29 01:47 | Observation (INO) | payer MEDICARE, SELFPAY ==
[2025-08-29] VITALS (23 sets, daily range): BP systolic 109–122; BP diastolic 61–71; PULSE 56–86; RESP 12–21; TEMP 36.1–36.4; O2SAT 96–99
--- NOTE | 2025-08-29 | DI.MRI_ITS ---
Exam(s) MR BRAIN WO EXAM: MR BRAIN WO CLINICAL HISTORY: cva TECHNIQUE: Multiplanar multisequence MRI of the brain was performed. COMPARISON: No exams were available for comparison FINDINGS: CEREBRAL PARENCHYMA: There is no evidence of intracranial hemorrhage, mass effect, or shift of midline structures. There are no extra-axial fluid collections. Ventricles are not enlarged or shifted. There is no significant focal signal abnormality in the cerebellar hemispheres nor within the marti, midbrain, and thalami. There are multiple small foci of FLAIR bright signal abnormality in the bilateral Karena in supra ventricular white matter, largest of these measuring 6 mm. These are not associated with hemorrhage, surrounding edema, nor restricted diffusion. There is no significant focal signal abnormality evident on diffusion imaging to suggest acute ischemic event. PITUITARY GLAND: No mass nor parasellar abnormality. No obvious abnormality in the cavernous sinuses. FLOW VOIDS: The expected flow void are noted. No evidence of obvious aneurysm nor obvious vascular malformation. PARANASAL SINUSES: Small retention cyst in the anterior aspect of the left maxillary sinus. No fluid levels. Other paranasal sinuses are clear. ORBITS: There has been prior cataract surgery in the left orbit. IMPRESSION: There are multiple foci of nonspecific white matter signal abnormality not associated with hemorrhage, surrounding edema, nor restricted diffusion and most probably related to chronic ischemic changes. There is no evidence of acute territorial nor lacunar infarct. DATA REPOSITORY:
--- NOTE | 2025-08-29 01:30 | RT.EKG_ITS ---
APPROVED REPORT Exam: Resting ECG Reason for Exam: altered mental Patient Location: E HR:70 bpm ECG Measurements Heart Rate 70 AXIS ME 207 P 71 QRSd 90 QRS 62 QT 388 T 61 QTc 418 Conclusion Sinus rhythm...normal P axis, V-rate 60- 99 Normal Electrocardiogram
--- NOTE | 2025-08-29 01:31 | W.ED.GENAD ---
Discharge Plan Disposition Patient Disposition: Admit to [facility] Condition: Stable Discharge Details Clinical Impression: Difficulty with speech, AMS (altered mental status) Primary Care Provider: Aliyah,Local ED Provider: Russell Lugo Medaubrey and New Rx's Prescriptions: No Action atorvastatin 40 mg tablet 40 mg PO DAILY pantoprazole 40 mg tablet,delayed release (DR/EC) 40 mg PO DAILY metformin 1,000 mg Tablet 1,000 mg PO BID quetiapine 50 mg Tablet 50 mg PO QHS insulin glargine [Lantus Solostar U-100 Insulin] 100 unit/mL (3 mL) Insulin Pen 30 unit SUBCUT BID lisinopril 5 mg tablet 5 tab PO DAILY HPI General Mode of arrival: EMS. Date/Time Provider Initiated Documentation: 08/29/25 01:54. Limitations to Documentation: no limitations. Information obtained by: patient, EMS and RN notes reviewed. HPI Narrative: Patient presents to ED by ambulance with episode of altered mental status, near syncope, difficulty speaking. Patient has history of diabetes. He does not always take his medications as directed. Smoking marijuana tonight which he has done previously without issues. Around 23:30 began to feel unwell. Initially feeling lightheaded and like he might pass out. He checked check his blood sugar which was okay. He then began to feel confused, could not get his words out although he does state his sister seem to understand him. He felt like he was not talking normally and began to sense difficulty with swallowing and breathing like may be his throat was swelling. At no point did he lose consciousness. He does not recall having any type of pain anywhere. Maybe felt a little nauseated. He felt at 1 point that the right side of his body was stiff but denies actual weakness. EMS reports that vital signs were normal. Blood sugar was okay. He seemed to begin feeling better after fluids were started. They felt that his prehospital stroke screening was negative. Reports that he is definitely feeling better at this point but has no idea what was going on earlier. Once he knew his blood sugar was okay he began to worry about stroke which did eventually prompted the EMS activation. Related Data Home Medications ?Medication ?Instructions ?Recorded ?Confirmed insulin glargine 100 unit/mL (3 30 unit subcut BID 02/26/20 08/29/25 mL) subcutaneous pen (Lantus Solostar U-100 Insulin) metformin 1,000 mg tablet 1,000 mg PO BID 02/26/20 08/29/25 quetiapine 50 mg tablet 50 mg PO QHS 02/26/20 08/29/25 atorvastatin 40 mg tablet 40 mg PO DAILY 05/26/22 08/29/25 pantoprazole 40 mg tablet,delayed 40 mg PO DAILY 05/26/22 08/29/25 release lisinopril 5 mg tablet 5 tab PO DAILY 06/01/22 08/29/25 Allergies Allergy/AdvReac Type Severity Reaction Status Date / Time pregabalin (From Lyrica) AdvReac Mild feet swell Unverified 08/29/25 01:48 General ROBERTH: 3 Exam Narrative Exam Narrative: Const: WDWN male in NAD. VS per triage. HEENT: NC/AT. Normal facial exam. Eyes: PERRL and EOMI Neck: Supple. Trachea midline. No stridor. Lungs: Normal respiratory effort. Lungs are clear. Cor: RRR without murmur. Good radial pulses. GI: Soft/ND/NT. Neuro: A+O x 3. Normal speech, mentation. Cranial nerves II - XII grossly intact. No gross motor or sensory deficit. Ext: No C/C/E. Medical Decision Making Patient presenting to ED by EMS with episode of near syncope, altered mental status, difficulty speaking, questionable right-sided neurologic symptoms though at this time seems to be completely alert and oriented as well as nonfocal. Patient does have history of diabetes, hypertension, hyperlipidemia and smoking. He is not always compliant with his medications. He had been smoking marijuana this evening prior to the episode however he has done this previously. Denies having any type of pain during the episode. Does feel that his sister was able to understand him when speaking but he just felt like he had significant difficulty getting words out, difficulty with breathing and swallowing like his throat was tightening, stiffness and difficulty using the right side. EMS reports negative stroke screen, normal vitals, normal blood sugar. Differential can include TIA, arrhythmia with near syncope, effects of THC,. Does not seem related to atypical seizure, allergic reaction/angioedema, infectious process. His EKG on arrival is normal per my read. Neurologically nonfocal and intact. Will proceed with TIA workup including labs, scans, teleneuro consult. 03:00 - Patient's initial laboratory studies are unremarkable. He has a mild anemia but a normal white count. Lactic acid is 1 and venous pH is 7.33. Chemistries and kidney function unremarkable other than elevated glucose to 177. Liver function normal. Initial troponin negative. Alcohol negative. Chest x-ray per my read with an elevated left hemidiaphragm, no acute cardiopulmonary process. Patient seen by neurology right after scan completed. Per her recommendations this very well could have been a TIA. Notes that patient is already on aspirin so would add Plavix with loading dose here in the ED. This presumes noncontrast CT comes back negative. Plan admission to complete workup of TIA including MRI of brain and ECHO of heart. 04:00 - CT head without bleed. CTA brain and neck without evidence of LVO, dissection, aneurysm. Patient is loaded with Plavix. Case discussed with hospitalist. Patient to be admitted for further workup. I have discussed recommendations from neurology and patient is agreeable to admission. Imaging Data Radiologic Study: Attestation: I personally reviewed and interpreted this imaging study as follows: Imaging: X-Ray My impression: CXR - see [facility] Lab Data Lab results reviewed: Yes I reviewed the patient's lab results. Lab results narrative: see [facility] ECG Data Attestation: I personally reviewed and interpreted this ECG (s) as follows: Prior ECG tracings: not available for review Interpretation: see [facility]/EKG [facility] All Active Problems (Updated 08/29/25 @ 04:01 by Russell Lugo MD) AMS (altered mental status) (Acute) Difficulty with speech (Acute) Medical History HTN (hypertension) Hyperlipidemia Diabetes Social History Smoking/Tobacco Use Status: Current every day Tobacco Type: cigarettes Smoking risk assessment performed?: Yes Alcohol Intake: current Alcohol Intake frequency: a few times a week 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
--- NOTE | 2025-08-29 01:45 | DI.RAD_ITS ---
Exam(s) XR CHEST 2V PA LATERAL EXAM: XR CHEST 2V PA LATERAL CLINICAL HISTORY: difficulty breathing. TECHNIQUE: 2D digital imaging was performed. COMPARISON: No exams were available for comparison FINDINGS: 2 views: Heart size is normal. The mediastinum is not widened. There is moderate elevation left hemidiaphragm. There is platelike atelectasis in the lateral left lung base. No confluent infiltrates nor pleural effusions. No pulmonary edema. IMPRESSION: Elevation left hemidiaphragm and platelike atelectasis in the lateral left lung base. DATA REPOSITORY: RADIATION DOSE DELIVERED:
--- NOTE | 2025-08-29 01:45 | DI.CT_ITS ---
Exam(s) CT BRAIN NECK CTA EXAM: CT BRAIN NECK CTA CLINICAL HISTORY: AMS/speech difficulty. TECHNIQUE: Imaging Protocol: Axial CT angiography was performed with multi- slice acquisition and multi-planar and/or 3D reconstructions. CONTRAST MATERIAL: Intravenous: Omnipaque 350 Contrast volume:structured data in ml COMPARISON: No exams were available for comparison FINDINGS: CTA Neck W: Aortic arch anatomy: The aortic arch anatomy is conventional. There is mild plaque at the origin of great vessels off the aortic arch but no significant stenosis. There is approximately 20 percent stenosis the origin the left common carotid artery. Anterior circulation: Both common carotid arteries ascend with normal luminal diameters. At the level the carotid bulbs and proximal internal carotid arteries there both calcified and noncalcified plaque noted bilaterally but no high-grade stenosis. The amount of stenosis on the right side is estimated at 10 percent. The amount of stenosis on the left side is also estimated approximately 10 percent. The bilateral internal carotid arteries nicely patent in the upper neck and skull base-carotid canals. There is no dissection of these vessels. Posterior circulation: Both vertebral arteries originate in conventional fashion off of the subclavian arteries and there is no significant stenosis at the origin of the right vertebral artery. There is mild-moderate stenosis at the origin of the left vertebral artery off the left subclavian artery. Both vertebral arteries exhibit normal and equal luminal diameters within the foramen transversarium. No evidence of thrombosis nor dissection of the vertebral arteries. Both vertebral arteries contribute to the formation of the basilar artery at the skull base. There is some calcified plaque in the right vertebral artery at the skull base but without high-grade stenosis at this level. CTA Brain W: Anterior circulation: Both internal carotid arteries are patent in the skull base-carotid canals as well as within the cavernous sinuses. There is calcified mural plaque in both intra cavernous ICAs but no high-grade stenosis. The supraclinoid aspects of the ICAs are patent. Both A1 segments are patent as are the anterior cerebral arteries and there is no evidence of aneurysm at the level of the anterior communicating artery. Both middle cerebral arteries are patent with no evidence of significant stenosis nor intraluminal thrombus. There also no aneurysms of these vessels. Posterior circulation: Basilar artery ascends in the midline no significant stenosis. Distally this gives off patent bilateral superior cerebellar arteries. Above this level the basilar artery terminates as patent bilateral posterior cerebral arteries. There is no evidence of aneurysm at the tip of the basilar artery nor elsewhere in the [id number]. CT BRAIN: There is no evidence of intracranial hemorrhage, mass effect, or shift of midline structures. There are no extra-axial fluid collections. Ventricles are not enlarged or shifted. There are no ring enhancing lesions in the brain and no abnormal meningeal enhancement. IMPRESSION: 1. Patent carotid arteries in the neck. There is some mild partially calcified plaque at both carotid bifurcations and proximal ICAs but no hemodynamically significant stenosis. No dissection. 2. Patent vertebral arteries. However, there does appear to be a moderate stenosis at the origin of the left vertebral artery off of the left subclavian artery, this due to a partially calcified plaque at this level.. There is no evidence of vertebral artery dissection. 3. Patent intracranial arteries. No significant stenosis. No aneurysms. No evidence of vascular malformation. 4. No evidence of intracranial hemorrhage nor abnormal enhancing structures. See separate MRI report RADIATION DOSE DELIVERED: 2,280.86mGy.cm Total DLP DATA REPOSITORY: All CT scans at this facility are submitted to the National Radiology Data Registry (NRDR) Dose Index Registry (DIR) with the [employer] (ACR). RADIATION OPTIMIZATION: All CT scans at this facility use at least one of these dose optimization techniques: automated exposure control; mA and/or kV adjustment per patient size (includes targeted exams where dose is matched to clinical indication); or iterative reconstruction.
[2025-08-29 02:00] LABS: Abs Immature Grans 0.02 10^3/uL (0.0-0.06); HCT 35.0 % (40.0-50.0); HGB 11.2 g/dL (13.5-17.5); Immature Grans % 0.2 %; MCH 27.7 pg (27.0-33.0); MCHC 32.0 % (32.0-36.0); MCV 87 fL (80-95); MPV 9.7 fL (8.0-11.0); Platelet Count 213 10^3/uL (130-400); RBC 4.04 10^6/uL (4.36-5.78); RDW 14.3 % (11.8-14.1); RDW-SD 45.1 fL; WBC 8.51 10^3/uL (4.4-10.8)
[2025-08-29] MEDS: Omnipaque 350 MG/ML 100 ML BTL IJ (02:01)
[2025-08-29 02:02] LABS: BE (Venous) -5 mmol/L (-2-3); HCO3 (Venous) 21 mmol/L (23-28); O2 Sat (Venous) 39 %; TCO2 (Venous) 21 mmol/L (24-29); pCO2 (Venous) 40 mmHg (41-51); pO2 (Venous) 25 mmHg
[2025-08-29] MEDS: Normal Saline Flush 10 ML SYR IVP ×2 (02:02→09:55)
[2025-08-29] MEDS: Normal Saline - Diluent 50 ML VIAL IJ (02:02)
[2025-08-29 02:19] LABS: ALT 26 U/L (16-63); AST 29 U/L (15-37); Albumin 3.5 g/dL (3.4-5.0); Alkaline Phosphatase 101 U/L (46-116); Anion Gap 9.8 mmol/L (3-11); BUN 16 mg/dL (7-18); Bilirubin, Total 0.4 mg/dL (0.2-1.0); CO2 25.2 mmol/L (21.0-32.0); Calcium 8.4 mg/dL (8.5-10.1); Chloride 102 mmol/L (98-107); Estimated GFR 65.87 (mL/min/1.73m2); Glucose 177 mg/dL (74-106); Magnesium 1.8 mg/dL (1.8-2.4); Potassium 4.2 mmol/L (3.5-5.1); Sodium 137 mmol/L (136-145); Total Protein 6.8 g/dL (6.4-8.2); Troponin I 4 ng/L (<or=76)
[2025-08-29 03:12] LABS: Troponin I 4 ng/L (<or=76)
--- NOTE | 2025-08-29 03:40 | DI.VRAD_ITS ---
Addendum created by Irineo Velasco MD on 08/29/2025 4:21:16 AM EDT: Findings were discussed with ALEC STORM at 08/29/2025 4:21 AM EDT. Initial report created on 08/29/2025 3:39:43 AM EDT: PROCEDURE INFORMATION: Exam: CTA Head Without And With Contrast, Arteriography Exam date and time: 08/29/2025 2:01 AM Age: 69 years old Clinical indication: Stroke-like symptoms; Speech disturbance; Additional info: AMS, speech difficulty TECHNIQUE: Imaging protocol: Computed tomographic angiography of the head without and with contrast. Exam focused on the arteries. 3D rendering (Not supervised by radiologist): MIP and/or 3D reconstructed images were created by the technologist. Radiation optimization: All CT scans at this facility use at least one of these dose optimization techniques: automated exposure control; mA and/or kV adjustment per patient size (includes targeted exams where dose is matched to clinical indication); or iterative reconstruction. Contrast material: OMNIPAQUE 350; Contrast volume: 70 ml; Contrast route: INTRAVENOUS (IV); Other technique: STROKE PROTOCOL was implemented. COMPARISON: No relevant prior studies available. FINDINGS: ANTERIOR CIRCULATION: Right internal carotid artery: Intracranial segment is patent with no significant stenosis or occlusion. No aneurysm. Right middle cerebral artery: No occlusion or significant stenosis. No aneurysm. Right anterior cerebral artery: No occlusion or significant stenosis. No aneurysm. Left internal carotid artery: Intracranial segment is patent with no significant stenosis. No aneurysm. Left middle cerebral artery: No occlusion or significant stenosis. No aneurysm. Left anterior cerebral artery: No occlusion or significant stenosis. No aneurysm. POSTERIOR CIRCULATION: Right vertebral artery: No occlusion or significant stenosis. No aneurysm. Left vertebral artery: No occlusion or significant stenosis. No aneurysm. Basilar artery: No occlusion or significant stenosis. No aneurysm. Right posterior cerebral artery: No occlusion or significant stenosis. No aneurysm. Left posterior cerebral artery: No occlusion or significant stenosis. No aneurysm. HEAD: Brain: No hemorrhage. Mild chronic microischemic changes of white matter. No mass effect or midline shift. No territorial edema. Cerebral ventricles: Normal. No ventriculomegaly. Bones: Unremarkable. No acute fracture. Orbital cavities: Postoperative changes of the left ocular lens. Paranasal sinuses: Visualized sinuses are normal. No fluid levels. Mastoid air cells: Visualized mastoids are normal. No mastoid effusion. Soft tissues: Unremarkable. IMPRESSION: 1. No large vessel occlusion. 2. Mild chronic microischemic changes of white matter. ASSESSMENT: ASPECTS ([place] Stroke Program Early CT Score) is 10. PROCEDURE INFORMATION: Exam: CTA Neck Without And With Contrast Exam date and time: 08/29/2025 2:01 AM Age: 69 years old Clinical indication: Stroke-like symptoms; Speech disturbance; Additional info: AMS, speech difficulty TECHNIQUE: Imaging protocol: Computed tomographic angiography of the neck without and with contrast. Exam focused on the cervical segments of the vasculature. 3D rendering (Not supervised by radiologist): MIP and/or 3D reconstructed images were created by the technologist. Radiation optimization: All CT scans at this facility use at least one of these dose optimization techniques: automated exposure control; mA and/or kV adjustment per patient size (includes targeted exams where dose is matched to clinical indication); or iterative reconstruction. Contrast material: OMNIPAQUE 350; Contrast volume: 70 ml; Contrast route: INTRAVENOUS (IV); COMPARISON: No relevant prior studies available. FINDINGS: Right common carotid artery: Calcified atherosclerotic plaques with mild stenosis. No dissection or occlusion. Right internal carotid artery: Atheromatous calcification at the origin of the extracranial internal carotid artery with no significant stenosis. No dissection or occlusion. Right external carotid artery: No occlusion or significant stenosis of the origin. Left common carotid artery: Calcified atherosclerotic plaques with mild stenosis. No dissection or occlusion. Left internal carotid artery: Atheromatous calcification at the origin of the extracranial internal carotid artery with no significant stenosis. No dissection or occlusion. Left external carotid artery: No occlusion or significant stenosis of the origin. Right vertebral artery: Codominant. No significant stenosis. No dissection or occlusion. Left vertebral artery: Moderate stenosis at the origin. No dissection or occlusion. Soft tissues: No significant soft tissue swelling. Bones/joints: No acute fracture. Multilevel degenerative disc disease of the cervical spine, worst at C4-C5 and C5-C6.Grade 1 retrolisthesis of C4 without associated fracture, presumed to be degenerative in etiology. Posterior hypertrophic bony changes with posterior osteophytes and moderate bilateral neural foraminal narrowing at C4-C5 and C5-C6. IMPRESSION: 1. Normal right and left extracranial internal carotid arteries by NASCET criteria. 2. Widely patent codominant right vertebral artery. 3. Moderate stenosis at the origin of the left vertebral artery. REFERENCES: NASCET CRITERIA. The degree of stenosis in the cervical segment of the internal carotid artery is based on NASCET criteria. Normal is no stenosis. Mild is less than 50% stenosis. Moderate is 50-69% stenosis. Severe is 70% to 99% stenosis. Total occlusion is no detectable patent lumen. Dictated and Authenticated by: Irineo Velasco MD. Orderin Parish Wells MD
[2025-08-29] MEDS: Clopidogrel 300 MG TAB PO (03:46)
--- NOTE | 2025-08-29 03:46 | DI.VRAD_ITS ---
PROCEDURE INFORMATION: Exam: XR Chest Exam date and time: 08/29/2025 2:39 AM Age: 69 years old Clinical indication: Other: Difficulty breathing TECHNIQUE: Imaging protocol: Radiologic exam of the chest. Views: 2 views. COMPARISON: No relevant prior studies available. FINDINGS: Lungs: Right perihilar interstitial opacity. Pleural spaces: No pleural effusion or pneumothorax. Heart/Mediastinum: Normal in size. Bones/joints: No acute fracture is identified. Asymmetric elevation of the left hemidiaphragm. IMPRESSION: Right perihilar interstitial opacity that may be secondary to atelectasis or in the appropriate clinical setting, pneumonia. Dictated and Authenticated by: Irineo Velasco MD. Orderin Parish Wells MD
[2025-08-29 03:50] LABS: Glucose 250 mg/dL (Negative)
--- NOTE | 2025-08-29 04:15 | W.PM.HP.N ---
Date of service: 08/29/25 Time of Service: 04:15 Assessment and Plan Assessment and plan (1) AMS (altered mental status): Status: Acute Assessment and plan: Exact etiology is unknown there is concern about CVA versus TIA. MRI, echocardiogram with bubbles, lipid panel have been ordered. I have also ordered an A1c as he states he has had difficulty in issues with noncompliance. He is currently taking metformin and Lantus 30 units twice daily. (2) Hyperlipidemia: Assessment and plan: Patient is taking a statin but we will repeat his lipid panel in the a.m. (3) HTN (hypertension): Assessment and plan: Blood pressures currently at goal and he is taking lisinopril. (4) Diabetes: Assessment and plan: As above. (5) Tobacco abuse: Status: Acute Assessment and plan: Recommend complete cessation patient does not want nicotine replacement therapy at this time. I will continue the abdominal ultrasound as he has a history of smoking and his mom going 65-75. History of Present Illness History of Present Illness Chief Complaint: ams Narrative: Mr. Garcia is a 69-year-old gentleman with a known history of diabetes, dyslipidemia, and tobacco abuse who presents open 1 day history of dysphasia and right sided numbness. Patient came into the ED for evaluation and did get a CT of his head which was read as negative. His laboratory work was fairly benign. At this time a urinalysis is pending. Chest x-ray is awaiting formal read but appears to have some COPD. Patient was seen in consultation with teleneurology who recommended a CVA/TIA workup including MRI, echocardiogram, lipid panel. Patient states that he is having some numbness in his bilateral lower extremities. This preceded this current event. 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 Patient states that he has some noncompliance with his medical regimen. Patient does endorse tobacco use approximately 1/2 pack a day as well as intermittent marijuana use. He is otherwise without complaint. Review of Systems All systems reviewed & are unremarkable except as noted in HPI and below PFSH All Active Problems (Updated 08/29/25 @ 04:19 by Russell Lawrence MD) Tobacco abuse (Acute) AMS (altered mental status) (Acute) Difficulty with speech (Acute) Medical History HTN (hypertension) Hyperlipidemia Diabetes Social History Smoking/Tobacco Use Status: Current every day Tobacco Type: cigarettes Smoking risk assessment performed?: Yes Alcohol Intake: current Alcohol Intake frequency: a few times a week 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 Meds Allergies and Home Medications Allergies Allergy/AdvReac Type Severity Reaction Status Date / Time pregabalin (From Lyrica) AdvReac Mild feet swell Unverified 08/29/25 01:48 Home Medications ?Medication ?Instructions ?Recorded ?Confirmed ?Type insulin glargine 100 unit/mL (3 30 unit subcut BID 02/26/20 08/29/25 History mL) subcutaneous pen (Lantus Solostar U-100 Insulin) metformin 1,000 mg tablet 1,000 mg PO BID 02/26/20 08/29/25 History quetiapine 50 mg tablet 50 mg PO QHS 02/26/20 08/29/25 History atorvastatin 40 mg tablet 40 mg PO DAILY 05/26/22 08/29/25 History pantoprazole 40 mg tablet,delayed 40 mg PO DAILY 05/26/22 08/29/25 History release lisinopril 5 mg tablet 5 tab PO DAILY 06/01/22 08/29/25 History Exam Narrative Exam Narrative: HEENT-normocephalic atraumatic mucous membranes moist oropharynx is clear Neck-no lymphadenopathy no JVD no thyromegaly Cardiovascular-regular rate and rhythm no murmur rubs gallops Lungs-does have some bilateral expiratory wheeze but no accessory muscle use Abdomen-soft nontender nondistended bowel sounds active Neurologic-cranial nerves III to XII intact assessed reflux lower extremity normal as tested. Has symmetrical smile can raise his eyebrows symmetrically. 5 out of 5 upper and lower extremity strength bilaterally. Sensations intact. Results Labs 08/29/25:25 08/29/25 01:25 Labs: Laboratory Results - last 24 hr 08/29/25 08/29/25 08/29/25:25 02:00 02:40 WBC 8.51 RBC 4.04 L Hgb 11.2 L Hct 35.0 L MCV 87 MCH 27.7 MCHC 32.0 RDW 14.3 H Plt Count 213 MPV 9.7 Immature Gran % 0.2 Neutrophils % 44.0 Lymphocytes % 42.2 Monocytes % 8.8 Eosinophils % 4.2 Basophils % 0.6 Nucleated RBC % 0.0 Absolute Neutrophils 3.74 Absolute Lymphocytes 3.59 H Absolute Monocytes 0.75 Absolute Eosinophils 0.36 Absolute Basophils 0.05 VBG pH 7.33 VBG pCO2 40 L VBG pO2 25 VBG HCO3 21 L VBG Total CO2 21 L VBG O2 Saturation 39 VBG Base Excess -5 L VBG Lactate 1.0 Sodium 137 Potassium 4.2 Chloride 102 Carbon Dioxide 25.2 Anion Gap 9.8 BUN 16 Creatinine 1.2 Est GFR (CKD-EPI 2020) 65.87 Glucose 177 H Calcium 8.4 L Magnesium 1.8 Total Bilirubin 0.4 AST 29 ALT 26 Alkaline Phosphatase 101 Troponin I 4 4 Total Protein 6.8 Albumin 3.5 Urine Color Urine Clarity Urine pH Ur Specific [place] Urine Protein Urine Ketones Urine Blood Urine Nitrite Urine Bilirubin Urine Urobilinogen Ur Leukocyte Esterase Urine Glucose Ethyl Alcohol < 3.0 08/29/25 03:30 WBC RBC Hgb Hct MCV MCH MCHC RDW Plt Count MPV Immature Gran % Neutrophils % Lymphocytes % Monocytes % Eosinophils % Basophils % Nucleated RBC % Absolute Neutrophils Absolute Lymphocytes Absolute Monocytes Absolute Eosinophils Absolute Basophils VBG pH VBG pCO2 VBG pO2 VBG HCO3 VBG Total CO2 VBG O2 Saturation VBG Base Excess VBG Lactate Sodium Potassium Chloride Carbon Dioxide Anion Gap BUN Creatinine Est GFR (CKD-EPI 2020) Glucose Calcium Magnesium Total Bilirubin AST ALT Alkaline Phosphatase Troponin I Total Protein Albumin Urine Color Yellow Urine Clarity Clear Urine pH 5.5 Ur Specific [place] 1.010 Urine Protein Negative Urine Ketones Negative Urine Blood Negative Urine Nitrite Negative Urine Bilirubin Negative Urine Urobilinogen 0.2 Ur Leukocyte Esterase Negative Urine Glucose 250 H Ethyl Alcohol Last Vital Signs Temp 36.1 C L 08/29/25 01:50 Pulse 80 08/29/25 01:50 Resp 20 08/29/25 03:40 BP 109/70 08/29/25 01:50 Pulse Ox 98 08/29/25 01:50 PAWSS Have you Been Recently Intoxicated or Drunk Within the Last 30 days?: No Have you Ever Experienced Previous Episodes of Alcohol Withdrawal?: No Have you ever Experienced Withdrawal Seizures?: No Have you ever Experienced Delirium Tremens(DT)s?: No Have you ever undergone Alcohol Rehabilitation Treatment (i.e, inpt ot outpatient treatment programs)?: No Have you ever Experienced Blackouts?: No Have you ever Combined Alcohol with other Downers within the last 90 days?: No Have you ever Combined Alcohol with any other Substance of Abuse during the last 90 days?: No Positive Blood Alcohol level on Presentation? [PCS.BAL]: No Evidence of Increased Autonomic Activity (i.e. HR>120, tremor, sweating, agitation, nausea)?: No Result: 0 Time Spent Time spent with Patient: 40-54 minutes Time was spent: preparing to see the patient(eg.review tests), obtaining and/or reviewing separately otained hiistory, ordering medications,tests, procedures, referring, communicating with other health manager care management, indepentently interpreting results, counseling the patient and care coordination
[2025-08-29 04:28] LABS: Cannabinoids THC Positive (Negative); METHADONE URINE SCREEN Negative (Negative)
--- NOTE | 2025-08-29 05:10 | W.PC.ACHO ---
Registration Status: REG ER Primary Language: Preferred Language: ED Information & Data Chief Complaint GenMedical 08/29/25 01:50 Chief Complaint GenMedical 08/29/25 01:40 Triage Note pt's sister called for AMS, 08/29/25 01:40 pt not acting right, slurred speech. pt dizzy on ems' arrival, pt stated he felt the right side of throat closing, right sided weakness/stiffness. does not take home meds regularly, pt feeling better on arrival. known diabetic, BGL in field wnl. s/s began ~2330 Medical / Surgical History (Last Reviewed 08/29/25 @ 02:04 by Russell Lugo MD) HTN (hypertension) Hyperlipidemia Diabetes Most Recent Vital Signs Temperature 36.1 C L 08/29/25 01:50 Pulse 80 08/29/25 01:50 Pulse 84 08/29/25 03:40 Respiratory Rate 20 08/29/25 03:40 Respiratory Effort Normal, Non-Labored 08/29/25 01:57 Respiratory Depth Normal 08/29/25 01:57 Respiratory Pattern Normal 08/29/25 01:57 Blood Pressure 109/70 08/29/25 01:50 Blood Pressure Position Supine 08/29/25 01:50 Pulse Oximetry 98 08/29/25 01:50 Oxygen Delivery Method Room Air 08/29/25 01:50 Oxygen Flow Rate 0 08/29/25 01:50 Allergies pregabalin (From Lyrica) Adverse Reaction (Mild, Unverified 08/29/25 01:48) feet swell Precautions Isolation Standard precaution 08/29/25 01:50 Active Medications Generic Name Dose Route Start Last Admin Trade Name Freq PRN Reason Stop Dose Admin Iohexol 100 ml 08/29/25 02:00 08/29/25 02:01 Omnipaque 350 Mg/Ml 100 Ml Btl IJ 09/28/25 23:59 70 ml DIRECTED [place] Administration Sodium Chloride 50 ml 08/29/25 02:00 08/29/25 02:02 Normal Saline - Diluent 50 Ml Vial IJ 50 ml DIRECTED BALB[place] Administration Sodium Chloride 0 ml 08/29/25 02:00 08/29/25 02:02 Normal Saline Flush 10 Ml Syr IVP 10 ml PRN PRN Administration IV IV Catheter Type [Right Peripheral IV Antecubital] IV Catheter Type [Right Hand] Peripheral IV IV Catheter Gauge [Right 18 Antecubital] IV Catheter Gauge [Right Hand] 20 Diet Orders Category Date Time Status Regular/Normal [DIET] Nutrition 08/29/25 Breakfast Active Diagnostics 08/29/25 08/29/25 08/29/25 Range/Units 06:00 05:35 03:30 WBC Pending (4.4-10.8) 10^3/uL RBC Pending (4.36-5.78) 10^6/uL Hgb Pending (13.5-17.5) g/dL Hct Pending (40.0-50.0) % MCV Pending (80-95) fL MCH Pending (27.0-33.0) pg MCHC Pending (32.0-36.0) % RDW Pending (11.8-14.1) % Plt Count Pending (130-400) 10^3/uL MPV Pending (8.0-11.0) fL Immature Gran % Pending % Neutrophils % Pending % Lymphocytes % Pending % Monocytes % Pending % Eosinophils % Pending % Basophils % Pending % Nucleated RBC % (0.0-0.3) % Absolute Neutrophils Pending (1.2-6.7) 10^3/uL Absolute Lymphocytes Pending (1.2-3.4) 10^3/uL Absolute Monocytes Pending (0.1-0.8) 10^3/uL Absolute Eosinophils Pending (0.0-0.7) 10^3/uL Absolute Basophils Pending (0.0-0.2) 10^3/uL VBG pH (7.31-7.41) VBG pCO2 (41-51) mmHg VBG pO2 mmHg VBG HCO3 (23-28) mmol/L VBG Total CO2 (24-29) mmol/L VBG O2 Saturation % VBG Base Excess (-2-3) mmol/L VBG Lactate (<or=2.0) mmol/L Sodium Pending (136-145) mmol/L Potassium Pending (3.5-5.1) mmol/L Chloride Pending (98-107) mmol/L Carbon Dioxide Pending (21.0-32.0) mmol/L Anion Gap Pending (3-11) mmol/L BUN Pending (7-18) mg/dL Creatinine Pending (0.70-1.30) mg/dL Est GFR (CKD-EPI 2020) Pending (mL/min/1.73m2) Glucose Pending (74-106) mg/dL Hemoglobin A1c Pending Calcium Pending (8.5-10.1) mg/dL Magnesium (1.8-2.4) mg/dL Total Bilirubin Pending (0.2-1.0) mg/dL AST Pending (15-37) U/L ALT Pending (16-63) U/L Alkaline Phosphatase Pending (46-116) U/L Troponin I (<or=76) ng/L Total Protein Pending (6.4-8.2) g/dL Albumin Pending (3.4-5.0) g/dL Triglycerides Pending Total Cholesterol Pending LDL Cholesterol, Calc Pending HDL Cholesterol Pending Urine Color Yellow (Yellow) Urine Clarity Clear (Clear) Urine pH 5.5 (5-8) Ur Specific [place] 1.010 (1.005-1.025) Urine Protein Negative (Neg-Trace) mg/dL Urine Ketones Negative (Negative) mg/dL Urine Blood Negative (Negative) Urine Nitrite Negative (Negative) Urine Bilirubin Negative (Negative) Urine Urobilinogen 0.2 (Up to 0.2) mg/dL Ur Leukocyte Esterase Negative (Negative) Urine Glucose 250 H (Negative) mg/dL Urine Opiates Screen Negative (Negative) Urine Methadone Screen Negative (Negative) Ur Barbiturates Screen Negative (Negative) Ur Tricyclics Screen Negative (Negative) Ur Amphetamines Screen Negative (Negative) U Benzodiazepines Scrn Negative (Negative) Urine Cocaine Screen Negative (Negative) Ur THC Screen Positive A (Negative) Ethyl Alcohol (<10) mg/dL 08/29/25 08/29/25 08/29/25 Range/Units 02:40 02:00 01:25 WBC 8.51 (4.4-10.8) 10^3/uL RBC 4.04 L (4.36-5.78) 10^6/uL Hgb 11.2 L (13.5-17.5) g/dL Hct 35.0 L (40.0-50.0) % MCV 87 (80-95) fL MCH 27.7 (27.0-33.0) pg MCHC 32.0 (32.0-36.0) % RDW 14.3 H (11.8-14.1) % Plt Count 213 (130-400) 10^3/uL MPV 9.7 (8.0-11.0) fL Immature Gran % 0.2 % Neutrophils % 44.0 % Lymphocytes % 42.2 % Monocytes % 8.8 % Eosinophils % 4.2 % Basophils % 0.6 % Nucleated RBC % 0.0 (0.0-0.3) % Absolute Neutrophils 3.74 (1.2-6.7) 10^3/uL Absolute Lymphocytes 3.59 H (1.2-3.4) 10^3/uL Absolute Monocytes 0.75 (0.1-0.8) 10^3/uL Absolute Eosinophils 0.36 (0.0-0.7) 10^3/uL Absolute Basophils 0.05 (0.0-0.2) 10^3/uL VBG pH 7.33 (7.31-7.41) VBG pCO2 40 L (41-51) mmHg VBG pO2 25 mmHg VBG HCO3 21 L (23-28) mmol/L VBG Total CO2 21 L (24-29) mmol/L VBG O2 Saturation 39 % VBG Base Excess -5 L (-2-3) mmol/L VBG Lactate 1.0 (<or=2.0) mmol/L Sodium 137 (136-145) mmol/L Potassium 4.2 (3.5-5.1) mmol/L Chloride 102 (98-107) mmol/L Carbon Dioxide 25.2 (21.0-32.0) mmol/L Anion Gap 9.8 (3-11) mmol/L BUN 16 (7-18) mg/dL Creatinine 1.2 (0.70-1.30) mg/dL Est GFR (CKD-EPI 2020) 65.87 (mL/min/1.73m2) Glucose 177 H (74-106) mg/dL Hemoglobin A1c Calcium 8.4 L (8.5-10.1) mg/dL Magnesium 1.8 (1.8-2.4) mg/dL Total Bilirubin 0.4 (0.2-1.0) mg/dL AST 29 (15-37) U/L ALT 26 (16-63) U/L Alkaline Phosphatase 101 (46-116) U/L Troponin I 4 4 (<or=76) ng/L Total Protein 6.8 (6.4-8.2) g/dL Albumin 3.5 (3.4-5.0) g/dL Triglycerides Total Cholesterol LDL Cholesterol, Calc HDL Cholesterol Urine Color (Yellow) Urine Clarity (Clear) Urine pH (5-8) Ur Specific [place] (1.005-1.025) Urine Protein (Neg-Trace) mg/dL Urine Ketones (Negative) mg/dL Urine Blood (Negative) Urine Nitrite (Negative) Urine Bilirubin (Negative) Urine Urobilinogen (Up to 0.2) mg/dL Ur Leukocyte Esterase (Negative) Urine Glucose (Negative) mg/dL Urine Opiates Screen (Negative) Urine Methadone Screen (Negative) Ur Barbiturates Screen (Negative) Ur Tricyclics Screen (Negative) Ur Amphetamines Screen (Negative) U Benzodiazepines Scrn (Negative) Urine Cocaine Screen (Negative) Ur THC Screen (Negative) Ethyl Alcohol < 3.0 (<10) mg/dL [id number] Documentation Fingerstick Glucose Start: 08/29/25 01:48 Freq: Status: Active Protocol: Activity Type Activity Date Activity User E-sign Co-sign Detail Recorded Client Recorded Date Recorded By Document 08/29/25 03:31 BKG DAEMON(3) [id number] 08/29/25 03:32 BKG DAEMON(4) Intake and Output - 24 Hour Total 08/29/25 01:29 thru 08/29/25 05:08 Intake Total 400 Balance 400 Weight 90 kg Intake: Oral 400 Other: # Voids 1 Falls Risk Assessment History of Falls No History 08/29/25 01:57 Contributing Factors Unstable 08/29/25 01:57 Ambulatory Aids Independent 08/29/25 01:57 Tubes/Lines With any additional score 08/29/25 01:57 Gait Evaluation No gait disturbance 08/29/25 01:57 Cognition No cognitive impairment 08/29/25 01:57 Fall Total Score 23 08/29/25 01:57 Level of Risk Standard/Low Risk 08/29/25 01:57 Problems (Last Reviewed 08/29/25 @ 02:04 by Russell Lugo MD) Tobacco abuse (Acute) AMS (altered mental status) (Acute) v v v v v v v v v Sending and/or Receiving Nurses: Please use comment section below to note any information pertinent to the patient hand-off not included above. Information / Comments: Report received from: Heydi KAUFFMAN at [phone]
[2025-08-29 05:29] LABS: Abs Immature Grans 0.04 10^3/uL (0.0-0.06); HCT 33.2 % (40.0-50.0); HGB 10.8 g/dL (13.5-17.5); Immature Grans % 0.4 %; MCH 28.0 pg (27.0-33.0); MCHC 32.5 % (32.0-36.0); MCV 86 fL (80-95); RBC 3.86 10^6/uL (4.36-5.78); RDW 14.6 % (11.8-14.1); RDW-SD 45.7 fL; WBC 9.79 10^3/uL (4.4-10.8)
[2025-08-29 05:45] LABS: Calculated LDL 40 mg/dL (<100); Cholesterol 98 mg/dL (<200); HDL Cholesterol 40 mg/dL (>or=40); Hemoglobin A1C 11.4 % (<5.7); Triglyceride 91 mg/dL (<150)
[2025-08-29 05:54] LABS: ALT 20 U/L (16-63); AST 22 U/L (15-37); Albumin 3.2 g/dL (3.4-5.0); Alkaline Phosphatase 92 U/L (46-116); Anion Gap 10.8 mmol/L (3-11); BUN 14 mg/dL (7-18); Bilirubin, Total 0.3 mg/dL (0.2-1.0); CO2 25.2 mmol/L (21.0-32.0); Calcium 8.1 mg/dL (8.5-10.1); Chloride 105 mmol/L (98-107); Estimated GFR 81.98 (mL/min/1.73m2); Glucose 153 mg/dL (74-106); Potassium 4.6 mmol/L (3.5-5.1); Sodium 141 mmol/L (136-145); Total Protein 6.3 g/dL (6.4-8.2)
[2025-08-29 06:02] LABS: Platelet Count 193 10^3/uL (130-400)
[2025-08-29] MEDS: Enoxaparin 40 MG/0.4 ML SYR SC (06:22)
[2025-08-29] MEDS: Clopidogrel 75 MG TAB PO (08:54)
[2025-08-29] MEDS: Pantoprazole 40 MG TABCR PO (08:54)
[2025-08-29] MEDS: Lisinopril 5 MG TAB PO (09:54)
--- NOTE | 2025-08-29 10:54 | PT.INIE ---
PT Notes Visit Reasons: TIA (cardiology) Physical Therapy Inpatient Initial Evaluation Date: 08/29/2025 Referring Doctor: Dr. Lawrence PT Orders: PT CONSULT: PT evaluation and treatment Precautions: Standard, IV access Patient Profile/Admitting Diagnosis:Patient is a 69-year-old male presented to the ED with altered mental status and difficulty with speech. Workup in ED included head CT which was negative for acute findings. Patient admitted to [facility] unit for further medical management including CTA which showed mild plaque bilateral carotid bifurcation and proximal ICA. MRI negative for acute findings and echocardiogram showing EF of 60%. PT consult placed PMHX: [] Tobacco abuse (Acute) AMS (altered mental status) (Acute) Difficulty with speech (Acute) Medical History HTN (hypertension) Hyperlipidemia Diabetes Social History/Home Situation: Patient resides in [place] currently visiting his sister in [place]. He is self employed as a contractor. Independent ambulation without device, independent ADLs home management meal prep positive drives Equipment Owned/DME: None Subjective: Patient reports he feels like he could go climb a ladder today no symptoms of what he had prior to admission. Patient reports approximately 1 week ago he had an episode of feeling dizzy while looking up while painting on a ladder. Patient reports this was a wake-up call he knows he needs to take better care of his diabetes Objective: [] General Observation: Semireclined in bed watching television Mental Status: Alert and oriented x 4, able to follow all instructions, cooperative, agreeable to participate in evaluation Pain: Denies ROM: [] Right Upper Extremity: WNL Left Upper Extremity: WNL Right Lower Extremity: WNL Left Lower Extremity: WNL Strength: [] Right Upper Extremity: 5/5 Left Upper Extremity: 5/5 Right Lower Extremity: Grossly 5/5 Left Lower Extremity: Grossly 5/5 Sensation: Diminished bilateral lower extremity knees to toes light touch and 2 point discrimination, impaired proprioception/kinesthetic awareness bilateral ankles Bed Mobility/Transfers: [] Supine to sit independent Sit to stand independent Stand to sit independent Bed to chair independent Gait: Ambulated 600 feet without assistive device normal gait pattern directional changes no loss of balance independently Stairs: Flight of stairs without rail reciprocal pattern supervision Balance: [] Static Sitting: Normal Dynamic Sitting: Normal Static Standing: Normal Dynamic Standing: Normal Special Tests: 4 STAGE BALANCE TEST: Feet together greater than 60 seconds seconds 1/2 Stance 45 seconds Tandem stance 30 seconds Single leg stance left 15 seconds, right 8 seconds Mobility Limitations Standardized Measure [] [facility] AM-PAC 6 clicks Basic Mobility Inpatient Short Form: [] Raw Score: 24 CMS Score: 0% deficit Informed Consent/Education: Patient instructed in purpose of PT consult. Assessment: Patient is a 69-year-old male presented to the ED with altered mental status and difficulty with speech. Patient demonstrates no focal deficits at this time. Patient independent with all functional mobility including bed mobility transfers ambulation greater than 600 feet and flight of stairs without railing reciprocal pattern. Patient demonstrates slight right lower extremity single limb stance balance reactions possibly related to prior surgery on right great toe with impaired proprioception and sensation due to neuropathy. Patient is assessed as a moderate complexity based on the following: History: 69-year-old male with impairment level findings, functional limitations, and past medical history as indicated above Examination: Demonstrable impairment in strength, balance, and mobility level with underlying impairments and functional limitations as documented above Presentation: stable/evolving Decision Making: moderate Goals: N/A. PT evaluation and 1-2 treatment sessions only for functional mobility training using recommended AD and for HEP instruction. Plan of Care/Treatment Plan: N/A. PT evaluation and 1-2 treatment session only for functional mobility training using recommended AD and for HEP instruction. DISCHARGE RECOMMENDATIONS: Home with no PT services indicated TREATMENT CODE/TIME: [id number] Thank you for the opportunity to participate in the care of this patient. Lary Ge, PT [facility]
--- NOTE | 2025-08-29 12:30 | INITIAL_ITS ---
Date of service: 08/29/25 Time of Service: 11:00 Care Management Initial Assmt Initial Assessment Reason for Hospitalization: altered mental status/difficulty with speech- TIA Functional Status/Living Situation Patient Presentation: Yossi presented to the ED early this morning with c/o altered mental status, near syncope and difficulty speaking. He checked his blood sugar, which was fin e, but he became confused and his sister could not understand him. EMS was called. Yossi was admitted for a TIA workup Yossi was lying in bed when CM met with him today. He sat up quickly and was v colleen polite. Yossi lives in [place], but is here in [place] visiting his sister. He plans to be here for about 2 more weeks, then drive himself back to [place]. He has a PCP appointment in september, but he is unsure of the exact date. Yossi works for himself and does not need a return to work note. He has been up ambulating in the halls today. Town of Residence: [place], [place] Resides with: Spouse (Melissa) Natural Supports: family Employment Status: Employed (self employed engineering design manager) Instrumental Activities of Daily Living (ADLs): Independent Medications Medication Management: No Issues/Barriers identified Advance Directives Advance Directives: Do you have an Advance Directive: N , 14:18 AD On File at [facility]: N 02/26/20, 13:59 Date Asked 08/29/25 Today, 01:54 AD Date Reviewed COLST On File at [facility] COLST Date Scanned Code Status Resuscitation Status Full Code Insurance Coverage/Financial Issues Insurance: Medicare Part A & B [employer] Senior Supplemental Ins? Care Team Visit Care Team Role Provider Type Gregg Strange MD MD [facility] STAFF PHYSICIAN [facility] Primary Care Provider NON-[facility] STAFF PH YSICIAN InPatient Kalin Fuentes Other Providers OTHER Russell Lugo MD Emergency Provider [facility] STAFF PHYSICIAN Russell Lawrence MD Admit Provider [facility] STAFF PHYSICIAN Attending Provider Discharge Potential Discharge Needs: PCP F/U Appt Anticipated Barriers to Discharge: None Identified Patient/Family Education Needs: Review discharge instructions, discuss Ask Me Three Transportation: Private vehicle Plan: Yossi will discharge to his sister's home once he is medically stable, with no new home care services. He will f/u with his PCP in [place] in september and transport in a private vehicle. CM will continue to follow. Social Determinants of Health Screening Social Determinants of health last assessed in clinic: 08/29/25 Will the Patient Participate in the Screening?: Yes Do you worry about having a steady place to live?: no Problems where you live: no known problems In the past 12 months, have you had to go without electric, gas, oil or water in your home?: no 1. Within the past 12 months, we worried whether our food would run out before we got money to buy more.: Don't know/refused 2. Within the past 12 months, the food we bought just didn't last and we didn't have money to get more.: Don't know/refused Has lack of transportation kept you from medical appointments or from doing things needed for daily living?: no Has anyone in your life made you feel unsafe or unsupported?: no How hard is it for you to pay for the very basics like food, housing, medical care, and heating? Would you say it is:: Not hard at all Do you want help finding or keeping work or a job?: I do not need or want help If for any reason you need help with day-to-day activities such as bathing, preparing meals, shopping, managing finances, etc., do you get the help you need?: I don?t need any help How often do you feel lonely or isolated from those around you?: Never Do you speak a language other than [place] at home?: No PFSH All Active Problems (Updated 08/29/25 @ 04:19 by Russell Lawrence MD) Tobacco abuse (Acute) AMS (altered mental status) (Acute) Difficulty with speech (Acute) Medical History HTN (hypertension) Hyperlipidemia Diabetes Social History Smoking/Tobacco Use Status: Current every day Tobacco Type: cigarettes Smoking risk assessment performed?: Yes Alcohol Intake: current Alcohol Intake frequency: a few times a week Drug use: Daily Substance use type: marijuana Details: sober until 14 years ago Housing: house Do you feel safe at home: Yes Do you feel safe in your relationship?: Yes
--- NOTE | 2025-08-29 13:25 | CHAPLAIN ---
Yossi was sitting up in bed, just finishing a phone call when I visited this morning. When I introduce myself, Yossi told me that he spend five years in school studying for the [employer], then took a different direction after missing a significant amount of classes due to illness. He's in [place] visiting, comes up annual for a month or so for work, he said. Yossi said he feel much better this morning and was just on the phone telling his in [place] that. I offered support and will continue to visit.
--- NOTE | 2025-08-29 15:15 | PHACLINREV_ITS ---
Pharmacy Admission Review Admission Clinical Review Admission Pharmacy Review: Tobacco abuse (Acute) AMS (altered mental status) (Acute) pregabalin (From Lyrica) Adverse Reaction (Mild, Unverified 08/29/25 01:48) feet swell Resuscitation Status Full Code Height 6 ft Weight 82.9 kg Pharmacy Admission Review Renal Dosing Renal Dosing: SCR=1.0; CRCL=82ML/MIN; BUN 14 mg/dL (7-18) 08/29/25 05:15 Creatinine 1.0 mg/dL (0.70-1.30) 08/29/25 05:15 Medications needing adjustments: Reviewed List of meds needing interventions: NO INTERVENTION NEEDED Anticoagulation Anticoagulation: Hgb 10.8 g/dL (13.5-17.5) L 08/29/25 05:15 Hct 33.2 % (40.0-50.0) L 08/29/25 05:15 Plt Count 193 10^3/uL (130-400) 08/29/25 05:15 Creatinine 1.0 mg/dL (0.70-1.30) 08/29/25 05:15 DVT Prophylaxis: Reviewed Medications: Enoxaparin Opiate Usage Evaluate Pain Scale/Pains Meds: N/A Scheduled Bowel Reg ordered if on Opiates?: Yes Relevant Labs Relevant Labs: Sodium 141 mmol/L (136-145) 08/29/25 05:15 Potassium 4.6 mmol/L (3.5-5.1) 08/29/25 05:15 Chloride 105 mmol/L (98-107) 08/29/25 05:15 Magnesium 1.8 mg/dL (1.8-2.4) 08/29/25 01:25 Electrolytes, C-Reactive P, ESR: Reviewed DM Control DM Control: * HISTORY OF DM DM Control: Reviewed Insulin Dosing, Diabetic Medication: HOLDING PT'S METFORMIN POST IV CONTRAST. CURRENTLY ORDER HOME GLARGINE; AM GLUCOSE 109 Cardiac Review Cardiac Review: BP 122/71; HR 62 Troponin I 4 ng/L (<or=76) 08/29/25 02:40 BP, HR, EF%: Reviewed QTc Review QTc: Reviewed List meds needing interventions: SNI=443 IV to PO Switch IV Medications: N/A Home Meds Home Med List reviewed: Intervened (CHANGED LISINOPRIL TO HOME DOSE 5MG) Relevent Home Meds Not ordered & why?: HOLDING METFORMIN WHILE INPTIENT; Current Meds Current Medication Order Review: Reviewed
--- NOTE | 2025-08-29 17:04 | W.PM.DS.N ---
Date of service: 08/29/25 Time of Service: 17:04 DS: Diagnosis Discharge Diagnosis (1) AMS (altered mental status): Status: Acute (2) Hyperlipidemia: (3) HTN (hypertension): (4) Diabetes: (5) Tobacco abuse: Status: Acute Discharge Plan Disposition Patient Disposition: Home Condition: Good Discharge Details Reason For Visit: TIA Admit Date/Time: 08/29/25 04:10 Admit Provider: Russell Lawrence Attending Provider: Russell Lawrence Primary Care Provider: [facility]Flowers Hospital Course Hospital Course: Patient initially admitted with signs and symptoms concerning for CVA versus TIA with altered mental status. CT in the emergency department was negative and teleneurology was not consulted, the patient was admitted for CVA TIA workup. Telemetry was unremarkable, he had an MRI which did not show any acute findings as well as an echocardiogram showed normal EF no wall motion abnormalities. Given the patient returned to baseline was determined that he was stable for discharge home. Home Meds and New Rx's Prescriptions: Continued atorvastatin 40 mg tablet 40 mg PO DAILY pantoprazole 40 mg tablet,delayed release (DR/EC) 40 mg PO DAILY quetiapine 50 mg Tablet 50 mg PO QHS insulin glargine [Lantus Solostar U-100 Insulin] 100 unit/mL (3 mL) Insulin Pen 30 unit SUBCUT BID lisinopril 5 mg tablet 5 tab PO DAILY Discontinued metformin 1,000 mg Tablet 1,000 mg PO BID Discharge Instructions Activity:: Activity as Tolerated Equipment/Supplies:: No Equipment Needed Diet:: As Tolerated Discharge Orders Discharge Orders: Discharge Order (Routine); Ordered 08/29/25 Ordered By: Gregg Strange DS: Summary Time Spent with Patient providing and/or coordinating discharge services: Greater than 30 minutes Status at Discharge Functional status at discharge: independent ambulation Overall status at discharge: patient is back to baseline Mental Status: mental status grossly normal Speech and Movement: speech and movement normal Mood: congruent mood Affect: normal affect Exam Narrative Exam Narrative: Well-appearing older gentleman laying in bed in no acute distress, ANO x 4, heart regular rhythm, lungs auscultation bilaterally, abdomen soft, nontender, nondistended Psych Mental Status: mental status grossly normal Speech and Movement: speech and movement normal Mood: congruent mood Affect: normal affect DS: Data Vitals/I&O Vitals and I&O: Vital Signs Temperature 97.5 F L 08/29/25 07:35 Temperature Source Temporal Artery Scan 08/29/25 07:35 Pulse 62 08/29/25 07:35 Pulse Rhythm Regular 08/29/25 06:25 Pulse 75 08/29/25 05:20 Respiratory Rate 17 08/29/25 07:35 Respiratory Effort Normal 08/29/25 06:25 Respiratory Depth Normal 08/29/25 06:25 Respiratory Pattern Normal 08/29/25 06:25 Blood Pressure 122/71 08/29/25 07:35 Blood Pressure Mean 88 08/29/25 07:35 Blood Pressure Position Supine 08/29/25 01:50 Pulse Oximetry 99 08/29/25 07:35 Oxygen Delivery Method Room Air 08/29/25 07:35 Oxygen Flow Rate 0 08/29/25 07:35 Pain Level 0 08/29/25 07:35 Intake & Output 08/28/25 08/29/25 08/29/25 17:59 05:59 17:59 Intake Total 400 / 400 860 / 860 Output Total 500 / 500 Balance 400 / 400 360 / 360 Weight 182 lb 12.211 oz Intake: Oral 400 / 400 860 / 860 Output: Urine 500 / 500 Other: Urine Color Yellow Urine Appearance Clear Urine Odor Normal # Voids 1 Data Completed and Pending Labs on day of discharge: Labs from last 24 hours 08/29/25 08/29/25 08/29/25 05:15 03:30 02:40 WBC 9.79 RBC 3.86 L Hgb 10.8 L Hct 33.2 L MCV 86 MCH 28.0 MCHC 32.5 RDW 14.6 H Plt Count 193 MPV Immature Gran % 0.4 Neutrophils % 72.1 Lymphocytes % 20.1 Monocytes % 5.3 Eosinophils % 1.6 Basophils % 0.5 Nucleated RBC % 0.0 Absolute Neutrophils 7.05 H Absolute Lymphocytes 1.97 Absolute Monocytes 0.52 Absolute Eosinophils 0.16 Absolute Basophils 0.05 VBG pH VBG pCO2 VBG pO2 VBG HCO3 VBG Total CO2 VBG O2 Saturation VBG Base Excess VBG Lactate Sodium 141 Potassium 4.6 Chloride 105 Carbon Dioxide 25.2 Anion Gap 10.8 BUN 14 Creatinine 1.0 Est GFR (CKD-EPI 2020) 81.98 Glucose 153 H Hemoglobin A1c 11.4 H Calcium 8.1 L Magnesium Total Bilirubin 0.3 AST 22 ALT 20 Alkaline Phosphatase 92 Troponin I 4 Total Protein 6.3 L Albumin 3.2 L Triglycerides 91 Total Cholesterol 98 LDL Cholesterol, Calc 40 HDL Cholesterol 40 Urine Color Yellow Urine Clarity Clear Urine pH 5.5 Ur Specific [place] 1.010 Urine Protein Negative Urine Ketones Negative Urine Blood Negative Urine Nitrite Negative Urine Bilirubin Negative Urine Urobilinogen 0.2 Ur Leukocyte Esterase Negative Urine Glucose 250 H Urine Opiates Screen Negative Urine Methadone Screen Negative Ur Barbiturates Screen Negative Ur Tricyclics Screen Negative Ur Amphetamines Screen Negative U Benzodiazepines Scrn Negative Urine Cocaine Screen Negative Ur THC Screen Positive A Ethyl Alcohol 08/29/25 08/29/25 02:00 01:25 WBC 8.51 RBC 4.04 L Hgb 11.2 L Hct 35.0 L MCV 87 MCH 27.7 MCHC 32.0 RDW 14.3 H Plt Count 213 MPV 9.7 Immature Gran % 0.2 Neutrophils % 44.0 Lymphocytes % 42.2 Monocytes % 8.8 Eosinophils % 4.2 Basophils % 0.6 Nucleated RBC % 0.0 Absolute Neutrophils 3.74 Absolute Lymphocytes 3.59 H Absolute Monocytes 0.75 Absolute Eosinophils 0.36 Absolute Basophils 0.05 VBG pH 7.33 VBG pCO2 40 L VBG pO2 25 VBG HCO3 21 L VBG Total CO2 21 L VBG O2 Saturation 39 VBG Base Excess -5 L VBG Lactate 1.0 Sodium 137 Potassium 4.2 Chloride 102 Carbon Dioxide 25.2 Anion Gap 9.8 BUN 16 Creatinine 1.2 Est GFR (CKD-EPI 2020) 65.87 Glucose 177 H Hemoglobin A1c Calcium 8.4 L Magnesium 1.8 Total Bilirubin 0.4 AST 29 ALT 26 Alkaline Phosphatase 101 Troponin I 4 Total Protein 6.8 Albumin 3.5 Triglycerides Total Cholesterol LDL Cholesterol, Calc HDL Cholesterol Urine Color Urine Clarity Urine pH Ur Specific [place] Urine Protein Urine Ketones Urine Blood Urine Nitrite Urine Bilirubin Urine Urobilinogen Ur Leukocyte Esterase Urine Glucose Urine Opiates Screen Urine Methadone Screen Ur Barbiturates Screen Ur Tricyclics Screen Ur Amphetamines Screen U Benzodiazepines Scrn Urine Cocaine Screen Ur THC Screen Ethyl Alcohol < 3.0 PFSH All Active Problems (Updated 08/29/25 @ 04:19 by Russell Lawrence MD) Tobacco abuse (Acute) AMS (altered mental status) (Acute) Difficulty with speech (Acute) Medical History HTN (hypertension) Hyperlipidemia Diabetes Social History Smoking/Tobacco Use Status: Current every day Tobacco Type: cigarettes Smoking risk assessment performed?: Yes Alcohol Intake: current Alcohol Intake frequency: a few times a week Drug use: Daily Substance use type: 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
--- NOTE | 2025-08-29 17:06 | PDOC.CMDIS ---
Date of service: 08/29/25 Time of Service: 17:06 LACE Index Scoring Tool Questions: Length of Stay (in days): 1 Was the patient admitted via the E.D.?: Yes Comorbidities: Diabetes w/o Complication E.D. Visits: 1 Answers: Total Score: 6 Risk of Readmission: Low Risk Care Management Discharge Plan Reason for Hospitalization: r/o TIA, altered mental status Discharge Plan: Yossi is discharged home this evening with no new services. He will f/u with his PCP at a previously scheduled appointment in mid September, and continue per his plan of care. Yossi will transport with his sister. Patient/Family Education Needs: Review of discharge instructions, activity and limitations. Discuss Ask me 3.
== END 2025-08-29 18:19 | disposition home or self-care (01) ==
LOC: ER 04:01 → MS 05:28
PROVIDERS: Admitting Provider Hospitalist; Emergency Provider Emergency Medicine; Responsible Provider Family Medicine; Visit Provider Hospitalist
DX: R41.82 Altered mental status, unspecified (principal); E78.5 Hyperlipidemia, unspecified; I10 Essential (primary) hypertension; E11.9 Type 2 diabetes mellitus without complications; R20.2 Paresthesia of skin; R47.02 Dysphasia; F17.210 Nicotine dependence, cigarettes, uncomplicated; F12.90 Cannabis use, unspecified, uncomplicated; Z79.4 Long term (current) use of insulin; Z79.84 Long term (current) use of oral hypoglycemic drugs
CPT/HCPCS: 00123; 36415; 36416; 70496; 70498; 80053; 80061; 80307; 82805; 82962; 93005; 97162; 99285; J1650; 70551; 71046; 80320; 81003; 83036; 83605; 83735; 84484; 85025; 93010; 93306; 99236; G0378; J1815; J3490